=== PATIENT | female | born 1940 | race Caucasian/White ===

== ENCOUNTER 2016-12-03 11:52 | Inpatient (IN) ==
[2016-12-03] MEDS ORDERED: ALBUTEROL/IPRATROPIUM 3 ML NEB RESP TX PRN (12:08)
--- NOTE | 2016-12-03 12:45 | Pulmonology History & Physical ---
History of Present Illness Chief complaint: acute exacerbation of COPD, outpatient treatment failure. History of present illness: MARLA Neil acting as scribe for Dr. Rigoberto Conrad. Ms. Hedrick is a 75 year old white female who is admitted today 12/03/16 as a direct admit for exacerbation of COPD and outpatient treatment failure. She has been seen multiple times in the clinic over the past month and has been treated with abx and steroids most recently Cipro and PenVK for exacerbation of COPD. These additions along with her home medications improve symptoms briefly but continue to come back and when they come back it is significantly worse each episode. Today she admits shortness of breath wheezing and fatigue to the point that she cannot catch her breath and having severe wheezing and coughing spells. She has taken breathing treatments PRN and are not helping. Due to the severity of her symptoms and her past medical history decision was made to admit for further evaluation and treatment. ALLERGIES: DOXYCYCLINE, ATORVASTATIN, CARISOPRODOL, CODEINE, ROSUVASTATIN, AUGMENTIN (GI UPSET) ROS: Admits cough productive of green/white thick sputum, SOB, wheezing, fatigue , coughing, and weakness. Denies fever, nausea, vomiting, diarrhea, cardiac chest pain sx, headache, syncope, symptoms of TIA, dizziness, vertigo, and abdominal pain. All other ROS noncontributory. Home Medications: See list. Past Medical History: [facility]ization 06/10/17-06/19/16 under the care of Dr. Conrad also seen by cardiology for acute exacerbation of COPD. Repeat Bronchoscopy on 09/15/16 after Class III cytology reported from bronchscopy in June 2016. CAD, Hypertension, Hyperlipidemia with Statin Intolerance, Depression, Parkinson's Disease followed by Dr. Diaz, Hypothyroidism, Asthma, COPD with severe exacerbations, Obstructive Sleep Apnea, Pneumonia requiring hospitalizations, Recurring UTIs, Gastroesphageal reflux disease, Gastroparesis , Hepatitis, and Dejenerative Disc Disease. Past Surgical History: Left heart cath, Tonsillectomy & Adenoidectomy, Appendectomy, Cholecystectomy, Colonoscopy, & EGD. Family History: Diabetes, Heart Disease, Hypertension, Social History: Former smoker, former alcohol, drinks caffeine, . Chest xray, labs, and EKG are pending at this time. Home Medications Medication Instructions Recorded Confirmed Type Albuterol Tab [Proventil Tab] 1 mg PO 2100 12/03/16 12/03/16 History Albuterol Tab [Proventil Tab] 2 mg PO 0600 12/03/16 12/03/16 History Aspirin Tab 325 mg PO DAILY 12/03/16 12/03/16 History Benzonatate 100 mg PO TID 12/03/16 12/03/16 History Ciprofloxacin Tab [Cipro Tab] 250 mg PO BID 12/03/16 12/03/16 History Clopidogrel [Plavix] 75 mg PO DAILY 12/03/16 12/03/16 History Cyclobenzaprine [Flexeril] 10 mg PO BID 12/03/16 12/03/16 History Diclofenac 1% Gel [Voltaren 1% Gel] 1 applic TOP QID PRN 12/03/16 12/03/16 History Fexofenadine [Yari] 180 mg PO DAILY 12/03/16 12/03/16 History Fluticasone Furoate [Flonase 9.9 ml NS BID 12/03/16 12/03/16 History Sensimist] Isosorbide Mononitrate [Imdur] 30 mg PO DAILY 12/03/16 12/03/16 History Levothyroxine Tab [Synthroid Tab] 112 mcg PO DAILY@0700 12/03/16 12/03/16 History Methocarbamol 500 mg PO Q8HR PRN 12/03/16 12/03/16 History Montelukast Tab [Singulair Tab] 10 mg PO DAILY 12/03/16 12/03/16 History Nebivolol [Bystolic] 5 mg PO DAILY 12/03/16 12/03/16 History Ondansetron HCl 4 mg PO Q8HR PRN 12/03/16 12/03/16 History Pantoprazole Tab [Protonix Tab] 40 mg PO BID 12/03/16 12/03/16 History Penicillin Vk Tab 250 mg PO Q6HR 12/03/16 12/03/16 History Sertraline [Zoloft] 50 mg PO BEDTIME 12/03/16 12/03/16 History Theophylline ER Tab 300 mg PO Q12HR 12/03/16 12/03/16 History Tramadol HCl [Tramadol Tab] 50 mg PO QID PRN 12/03/16 12/03/16 History clonazePAM [Clonazepam] 0.5 mg PO TID PRN 12/03/16 12/03/16 History Allergies Allergy/AdvReac Type Severity Reaction Status Date / Time doxycycline Allergy Intermediate RASH Verified 06/10/16 18:20 atorvastatin [From Lipitor] AdvReac Intermediate Muscle Pain Verified 06/10/16 18:20 carisoprodol [From Soma] AdvReac Intermediate Drowsy Verified 06/10/16 18:20 codeine AdvReac Intermediate Nausea Verified 06/10/16 18:20 rosuvastatin [From Crestor] AdvReac Intermediate Muscle Pain Verified 06/10/16 18:20 Medical,Surgical,& Family Hx - Medical History Cardio: History of: CAD (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) , Hypertension, Cardiovascular Problems No history of: Aneurysm, Cardiac Dysrhythmia, Cerebrovascular Disease, Congenital Heart Disease, CHF, SD, Pacemaker, PVD, Valvular Heart Disease Psychological: History of: Depression Neurology: History of: Parkinson's Disease No history of: Brain Aneurysm, Cerebral Hemorrhage, Cerebrovascular Accident , Cerebral Palsy, Dementia, Migraine, Multiple Sclerosis, Peripheral Neuropathy , Seizures, TIA, Vertigo, Neurologocal Cancer HEENT: History of: Eye Problem (GLASSES) Endocrine: History of: Thyroid Disorder No history of: Adrenal Disease, Diabetes Mellitus (IDDM), Diabetes Mellitus ( NIDDM), Dyslipidemia, Endocrine Cancer, Endocrine Problems Rheumatology: No history of;: Fibromyalgia, Gout, Myasthenia Gravis, Rheumatoid Arthritis, Rheumatological Problems Respiratory: History of: Asthma, Bronchitis, Obstructive Sleep Apnea, Pneumonia , Respiratory Problems No history of: COPD, Intubation, Pulmonary Embolism, Pulmonary Hypertension, Lung Cancer Renal: No history of: Renal (Kidney) Cancer, Dialysis, Renal Failure, Renal Problems Genitourinary: History of: Bladder Problem, Recurring Urinary Tract Infections No history of: Kidney Stones, Genitourinary Cancer, Problems Gastrointestinal: History of: GERD, Hepatitis, GI Problems No history of: Bowel Obstruction, Clostridium Difficile, Crohn's Disease, Diverticulitis/ Diverticulosis, Esophageal Varices, Gastrointestinal Bleed, Hemorrhoids, Hematochezia, Liver Problems, Pancreatitis, Polyps, Ulcerative Colitis, Gastrointestinal Cancer Musculoskeletal: History of: Back/Neck Problems, Degenerative Disk Disease, Musculoskeletal Problems No history of: Amputation, Herniated Disk, Osteoporosis, Musculoskeletal Cancer Other: No history of: Cancer - Surgical History Cardiac Surgeries: Sugical HX of: Cardiac Catheterization Patient Denies: Femoral-Popliteal Bypass Graft, Cardiac Surgery, Carotid Endarterectomy, Internal Defibrillator, Vascular Access Devices Thoracic Surgeries: Patient denies;: Kidney (Renal Surgery), Lithotripsy, Nephrectomy, Lobectomy Neurologic Surgeries: Patient denies: Brain Aneurysm, Cerebral Hemorrhage, Neurologic Surgery HEENT Surgeries: Surgical HX of: Tonsilectomy & Adenoidectomy Patient denies: Carotid Endarterectomy, Thyroid Surgery Abdominal Surgeries: Surgical HX of: Appendectomy, Cholecystectomy, Colonoscopy , EGD Patient denies: Abdominal Surgery, Gastric Bypass Surgery, Hernia Repair, Splenectomy Reproductive Surgeries: Surgical HX of;: Hysterectomy, Tubal Ligation Patient denies;: Cystoscopy, Genitourinary Surgery Orthopedic Surgeries: Patient denies;: Implanted Devices, Orthopedic Surgery, Spinal Surgery, Total Hip Replacement, Total Knee Replacement - Family History Family History: Reports;: Family Diabetes, Family Heart Disease, Family Hypertension Denies;: Family Anesthesia Reaction - Social History Smoking Status: Never smoker Results - Labs CBC & BMP: 12/03/16 14:15 12/03/16 14:15 Exam (Pulmonay) H&P - Constitutional Exam: Vital signs see above Psych: Awake alert oriented to person place time situation. Anxious. acute and chronically ill appearing. HEENT: Pupils, irises, sclera, conjuctiva, and eyelids are normal. The face is symmetrical no rash no masses. Nares are normal. Nasal turbinates are inflamed and edematous. Lips tongue buccal mucosa soft and hard palate pharynx were essentially normal. NECK: Symmetrical with no masses. Lymphatics: There is no submandibular cervical supraclavicular adenopathy. Chest: Symmetrical. Moderate LAW congestion and wheeze along restricted air movement so minimal wheezes in the periphery can be heard due to severely restricted air movement throughout. Prolonged expiration. Heart: Regular rate and rhythm without murmurs or gallops. Abdomen: No tenderness to palpation. No appreciable organomegaly. Bowel sounds present and active x 4 quadrants. M/S: Age appropriate loss of curvature of cervical, thoracic, lumbosacral spine. Ambulatory with rolling walker. Generalized weakness with ambulation. Extremities: No clubbing. No evidence of deep venous thrombophlebitis. No edema. No rash or lesions to exposed examined skin. Arterial: Carotid upstrokes normal no bruits. Upper and lower extremity pulses palpable. Arterial exam normal. Venous: No evidence of JVD. No evidence of DVT. Upper and lower extremity venous exam normal. Skin: Flushed look to the chest and upper arms r/t coughing and SOB. No rash or infectious lesions noted to exposed, examined skin. All other areas of exam are noncontributory. Impression #1 Acute exacerbation of COPD, refractory to outpatient treatment #2 Acute bronchitis with bronchospasm #3 Productive cough, green sputum, r/o bacterial pneumonia #4 Gastroesophageal reflux disease with history of reflux aspiration #5 Gastroparesis #6 History of CAD, HTN, HLD, Parkinson's Disease, and Hypothyroidism. See past history Plan #1 Admit to acute inpatient #2 Merrem 1GM every 8 hours SoluMedrol 40mg IVP q9fzyft inhalation therapy with Duonebs q6h schedule and q4h PRN #3 Sputum for gram stain culture & sensitivity, CBC, CMP, TSH/Free T4, CXR, EKG , Daily theophylline level. #4 Continue home meds as ordered. #5 See orders.
[2016-12-03 14:30] LABS: Basophils # 0.1 10*3/uL (0.0-0.2); Basophils % 0.4 % (0.0-0.8); Eosinophils # 0.1 10*3/uL (0.0-0.87); Eosinophils % 0.4 % (0.00-10.9); Hemoglobin 10.9 GM/DL (12.0-16.0); Immature Granulocytes % 1.2 %; Immature Granulocytes Absolute 0.17 #; Lymphocytes # 1.8 10*3/uL (1.4-4.0); Lymphocytes % 13.2 % (21.3-54.2); Mean Corpuscular HGB Conc 29.5 GM/DL (32-36); Mean Corpuscular Hemoglobin 26 PG (27-34); Mean Corpuscular Volume 89.6 FL (87-102); Mean Platelet Volume 11.3 FL (9.6-12.0); Monocytes # 0.8 10*3/uL (0.11-0.8); Neutrophils % 78.8 % (38.7-73.9); Platelet Count 270 T/CUMM (130-400); Red Blood Count 4.13 MC/CUMM (3.8-5.5); Red Cell Distribution Width 16.4 % (9.3-17.3); White Blood Count 13.9 T/CUMM (4-12)
--- NOTE | 2016-12-03 14:35 | XRay Report ---
XR chest 2V Date: 12/03/2016 12:11 PM History: Shortness of breath Comparison: 06/17/2016 Technique: PA and lateral chest Findings: The heart is normal in size. Chronic scarring in the lungs with residual atelectasis at the lung bases. Stable mediastinum with degenerative changes. Prior anterior cervical fusion and cholecystectomy. Impression: No acute cardiopulmonary pathology identified. PROCEDURE INTERPRETED AT [facility] DEPARTMENT OF RADIOLOGY Final Report Signed by: Dr. Debra Latif
[2016-12-03 14:55] LABS: Alanine Aminotransferase 16 U/L (13-56); Albumin 3.6 G/DL (3.4-5.0); Alkaline Phosphatase 71 U/L (45-117); Aspartate Amino Transferase 10 U/L (0-37); Bilirubin,Total < 0.39 MG/DL (0.2-1.0); Blood Urea Nitrogen 10 MG/DL (7-18); Calcium 9.1 MG/DL (8.5-10.1); Glucose 99 MG/DL (74-106); Magnesium 2.5 MG/DL (1.8-2.4); Osmolality,Calculated 286.7 MOS/KG (273-304); Potassium 4.1 MMOL/L (3.5-5.1); Sodium 145 MMOL/L (136-145); Total Protein 6.4 G/DL (6.4-8.3)
--- NOTE | 2016-12-03 15:02 | EKG Report ---
Stationary ECG Study [facility] Test Date: 12/03/2016 3:02:09 PM Pat Name: OSKAR RAMIREZ Department: Room: 521 Gender: F [employer] Supervisor: LAITH TO READ : 1940 Requested by: Baljit Mcgrath Order Number: [id number] Reading MD: STEVE OZUNA Intervals [place] Rate: 66 P: 78 VT: 124 QRS: 11 QRSD: 82 T: 49 QT: 396 QTc: 409 Interpretive Statements Normal ECG (DR OZUNA TO INTERP) SINUS RHYTHM LOW QRS VOLTAGE IN PRECORDIAL LEADS Electronically Signed On 12-07-16 08:41:20 CDT by STEVE OZUNA [email or web address]
[2016-12-03] MEDS: ALBUTEROL/IPRATROPIUM 3 ML NEB RESP TX SCH ×2 (15:14→19:34)
[2016-12-03] MEDS ORDERED: DICLOFENAC 1% GEL 100 GM TUBE TOP PRN (15:32)
[2016-12-03 16:17] LABS: ABG Base Excess 3.9 MMOL/L (-2.5-2.5); ABG HCO3 28.3 MMOL/L (20-26); ABG Oxygen Saturation 94.8 % (95-100); ABG PCO2 42.1 MM HG (35-48); ABG PH 7.446 (7.35-7.45); ABG PO2 76.2 MM HG (80-95); ABG TCO2 29.6 MMOL/L (23-27)
[2016-12-03] MEDS: methylPREDNISolone SOD SUC 40 MG/1 ML VIAL IV SCH ×2 (16:43→21:25)
[2016-12-03] MEDS: MEROPENEM 1,000 MG in SODIUM CHLORIDE 0.9% 100 ML IV SCH ×2 (16:43→21:26)
[2016-12-03] MEDS: ONDANSETRON 4 MG TABLET PO PRN (20:15)
[2016-12-03] MEDS: SERTRALINE 50 MG TABLET PO SCH (20:15)
[2016-12-03] MEDS: CYCLOBENZAPRINE 10 MG TABLET PO SCH (20:15)
[2016-12-03] MEDS: THEOPHYLLINE ER 300 MG TABLET PO SCH (20:15)
[2016-12-03] MEDS: ALBUTEROL 2 MG TABLET PO SCH (20:15)
[2016-12-04 03:19] LABS: Apearance,Urine CLEAR (Clear); Bilirubin,Urine Negative (Negative); Blood, Urine Negative (Negative); Calcium Oxalate Crystals,Urine Few /HPF (Few); Glucose,Urine (UA) Negative (Negative); Hyaline Casts,Urine 1 /LPF (0-3); Ketones,Urine Negative (Negative); Mucus,Urine Occasional /LPF (Occasional); Nitrite,Urine Negative (Negative); Protein,Urine Negative; RBC,Urine 2 /HPF (0-4); Urine Color Yellow (Yellow); Urine Specific Gravity 1.012 (1.001-1.035); Urine Urobilinogen < 2.0 EU/DL (0.2-1.0); WBC,Urine 1 /HPF (0-6)
[2016-12-04] MEDS: ALBUTEROL 2 MG TABLET PO SCH ×2 (06:33→20:43)
[2016-12-04] MEDS: LEVOTHYROXINE 112 MCG TABLET PO SCH (06:33)
[2016-12-04] MEDS: MEROPENEM 1,000 MG in SODIUM CHLORIDE 0.9% 100 ML IV SCH ×3 (06:34→21:17)
[2016-12-04] MEDS: methylPREDNISolone SOD SUC 40 MG/1 ML VIAL IV SCH ×3 (06:34→21:17)
[2016-12-04] MEDS: ALBUTEROL/IPRATROPIUM 3 ML NEB RESP TX SCH ×4 (07:10→20:31)
[2016-12-04 07:18] LABS: Basophils % 0.2 % (0.0-0.8); Hematocrit 35.6 VOL% (35.7-47.0); Hemoglobin 10.5 GM/DL (12.0-16.0); Immature Granulocytes % 1.3 %; Immature Granulocytes Absolute 0.18 #; Lymphocytes # 0.6 10*3/uL (1.4-4.0); Lymphocytes % 4.2 % (21.3-54.2); Mean Corpuscular HGB Conc 29.5 GM/DL (32-36); Mean Corpuscular Hemoglobin 26 PG (27-34); Mean Corpuscular Volume 88.3 FL (87-102); Mean Platelet Volume 12.7 FL (9.6-12.0); Monocytes # 0.2 10*3/uL (0.11-0.8); Monocytes % 1.1 % (1.7-12.7); Neutrophils # 13.3 10*3/uL (1.4-7.4); Neutrophils % 93.2 % (38.7-73.9); Platelet Count 268 T/CUMM (130-400); Red Blood Count 4.03 MC/CUMM (3.8-5.5); Red Cell Distribution Width 16.5 % (9.3-17.3); White Blood Count 14.2 T/CUMM (4-12)
[2016-12-04 07:33] LABS: Calcium 8.9 MG/DL (8.5-10.1); Osmolality,Calculated 289.8 MOS/KG (273-304); Potassium 5.4 MMOL/L (3.5-5.1)
[2016-12-04 07:43] LABS: Hypochromasia 1+; Lymphocytes 9 % (20-55); Platelet Estimate Adequate; Segmented Neutrophils 91 % (50-85); Total Cells Counted 100
[2016-12-04] MEDS: THEOPHYLLINE ER 300 MG TABLET PO SCH ×2 (08:39→20:37)
[2016-12-04] MEDS: FEXOFENADINE 180 MG TABLET PO SCH (08:39)
[2016-12-04] MEDS: ASPIRIN 325 MG TABLET PO SCH (08:39)
[2016-12-04] MEDS: CLOPIDOGREL 75 MG TABLET PO SCH (08:40)
[2016-12-04] MEDS: CYCLOBENZAPRINE 10 MG TABLET PO SCH ×2 (08:40→20:37)
[2016-12-04] MEDS: ISOSORBIDE MONONITRATE 30 MG TABLET PO SCH (08:40)
[2016-12-04] MEDS: NEBIVOLOL 5 MG TABLET PO SCH (08:40)
[2016-12-04] MEDS ORDERED: PANTOPRAZOLE 40 MG TABLET PO SCH (09:00)
[2016-12-04] MEDS ORDERED: ALUMINUM/MAGNES/SIMETH MAX STR 30 ML UDCUP PO PRN (10:06)
--- NOTE | 2016-12-04 11:50 | Pulmonology Progress Note ---
Pulmonary - PN: Subj Interval history: Zeus Mcgrath, ANP-BC, GNP-BC, acting as scribe for Dr. Rigoberto Conrad Mrs. Hedrick is a 76 year old white female who was directly admitted 12/03/16 for an acute exacerbation of COPD and acute bronchitis with bronchospasm. She is an outpatient treatment failure. Other past history includes: gastroesophageal reflux disease with history of reflux aspiration, gastroparesis, history of CAD , HTN, HLD, Parkinson's Disease, and Hypothyroidism. 12/04/16. The patient was seen today along with her and Camille Lilly RN. She states that her breathing is much improved from admission. Upon questioning , she is having a terrific amount of reflux up into her throat and this is almost certainly hindering her pulmonary improvement. She states it is time for her to see Dr. Light again regarding her colonscopy and repeat EGD. We have her on Protonix, but will add Carafate. She can continue to have Mylanta PRN. We will consult Dr. Light for evaluation and treatment. Medications have been reviewed. Labs have been reviewed. Exam (Progress Note) - Constitutional Vitals: Period Temp Pulse Resp BP Sys/Hemphill Pulse Ox Last 24 Hr 97.3 F-98.0 F 65-93 18-22 113-145/66-80 90-99 Exam: Chest with much better air movement and less wheeze Heart no gallop Abd is nontender and nondistended; BS positive x 4 Ext with nothing to suggest acute DVT Psych oriented x 3 Neuro long tract motor function is intact Plan: Consult Dr. Light. Carafate 1gram ACHS. Continue Mylanta PRN. Continue other present treatment. See orders. Results - Labs CBC & BMP: 12/04/16 04:44 12/04/16 11:44
[2016-12-04 12:17] LABS: Magnesium 2.6 MG/DL (1.8-2.4); Potassium 4.4 MMOL/L (3.5-5.1)
--- NOTE | 2016-12-04 12:27 | Gastrointestinal Consult Note ---
Assessment and Plan (1) Gastroparesis Status: Acute Assessment and plan: Patient states that she did fairly well with Reglan before this was discontinued. She did get some worsening shaking in her hands due to this. She does have a history of parkinsonism which can be worsened by Reglan but if we use a low dose she may get some relief without having excessive side effects. We will observe her as this is restarted. She did not brain picker any domperidone from [facility] and she was originally instructed. This may be difficult for her to a hold of. Current Visit: Yes (2) History of dysphagia Status: Acute Assessment and plan: The patient has a history of dysphagia and was not able to afford the Dexilant after being taken off of Protonix. She states that she has been using Zantac as an outpatient instead although numerous times per day. This is not going to be as effective for his take the Protonix twice daily. This is been restarted here in the hospital by Dr. Conrad. She is not really having true dysphagia at this time. We might consider doing a dilation though if we see a stricture in the distal esophagus and upper endoscopy which is due to occur on 12/07/16. Current Visit: Yes (3) Chronic constipation Status: Acute Assessment and plan: The patient is to be getting a bowel prep on Wednesday afternoon in order to undergo colonoscopy on Wednesday. She has not had this done in the recent past. This needs to be done before being considered for rectal prolapse repair which she would like to explore in the future, provided this is severe enough to warrant surgery. Dr. Garcia does this repair locally here in [place] or she could like to go to [facility] to have it done at another institution. Will rule out polyps and cancer before she considers this. Current Visit: Yes (4) Rectal prolapse Status: Acute Assessment and plan: As noted above. This might be able to be repaired locally by Dr. Garcia. He is the only physician here who does rectal prolapse repairs. Current Visit: Yes History of Present Illness Chief complaint: Dysphagia and feelings of gastroparesis, constipation, CRC screen History of present illness: Ms. Hedrick is a 76 year old female who according to our records this patient did undergo EGD with Savary dilation to 57 Lithuanian on 05/16/14 due to, abdominal pain in the epigastric region dysphagia GERD and gastroparesis on domperidone at that time. 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 I had last seen this patient in the office on 03/25/16 at which point it was noted the patient had a gastric emptying study which did show delay on 05/14/14 with a T1 half emptying time of 141 minutes. She was noted to have some noncardiac chest pain when admitted by the cardiology service and have been sent back at that time for acid reflux. At that point we switched her over from Protonix to Dexilant to see if that was going to be more effective for her. The patient could not afford the Dexilant and so did not take any more of this and did not go back on the Protonix either instead substituting Zantac which was entirely ineffective for her. Unfortunately she has also had some constipation recently and this is worsened her rectal prolapse. She has never had a colonoscopy and we were due to do this in November of this year (now) and we will go ahead and get this done on Wednesday along with upper endoscopy and potential dilation. She feels like she is having gurgling from poor emptying of her stomach. She is wanting to try the Reglan again even though this did produce some "jitters" last time. She is having such severe reflux that likely she will need to be on Protonix twice daily at least in the short-term. Home Medications Medication Instructions Recorded Confirmed Type Albuterol Tab [Proventil Tab] 1 mg PO 2100 12/03/16 12/03/16 History Albuterol Tab [Proventil Tab] 2 mg PO 0600 12/03/16 12/03/16 History Aspirin Tab 325 mg PO DAILY 12/03/16 12/03/16 History Benzonatate 100 mg PO TID 12/03/16 12/03/16 History Ciprofloxacin Tab [Cipro Tab] 250 mg PO BID 12/03/16 12/03/16 History Clopidogrel [Plavix] 75 mg PO DAILY 12/03/16 12/03/16 History Cyclobenzaprine [Flexeril] 10 mg PO BID 12/03/16 12/03/16 History Diclofenac 1% Gel [Voltaren 1% Gel] 1 applic TOP QID PRN 12/03/16 12/03/16 History Fexofenadine [Yari] 180 mg PO DAILY 12/03/16 12/03/16 History Fluticasone Furoate [Flonase 9.9 ml NS BID 12/03/16 12/03/16 History Sensimist] Isosorbide Mononitrate [Imdur] 30 mg PO DAILY 12/03/16 12/03/16 History Levothyroxine Tab [Synthroid Tab] 112 mcg PO DAILY@0700 12/03/16 12/03/16 History Methocarbamol 500 mg PO Q8HR PRN 12/03/16 12/03/16 History Montelukast Tab [Singulair Tab] 10 mg PO DAILY 12/03/16 12/03/16 History Nebivolol [Bystolic] 5 mg PO DAILY 12/03/16 12/03/16 History Ondansetron HCl 4 mg PO Q8HR PRN 12/03/16 12/03/16 History Pantoprazole Tab [Protonix Tab] 40 mg PO BID 12/03/16 12/03/16 History Penicillin Vk Tab 250 mg PO Q6HR 12/03/16 12/03/16 History Sertraline [Zoloft] 50 mg PO BEDTIME 12/03/16 12/03/16 History Theophylline ER Tab 300 mg PO Q12HR 12/03/16 12/03/16 History Tramadol HCl [Tramadol Tab] 50 mg PO QID PRN 12/03/16 12/03/16 History clonazePAM [Clonazepam] 0.5 mg PO TID PRN 12/03/16 12/03/16 History Allergies Allergy/AdvReac Type Severity Reaction Status Date / Time doxycycline Allergy Intermediate RASH Verified 06/10/16 18:20 atorvastatin [From Lipitor] AdvReac Intermediate Muscle Pain Verified 06/10/16 18:20 carisoprodol [From Soma] AdvReac Intermediate Drowsy Verified 06/10/16 18:20 codeine AdvReac Intermediate Nausea Verified 06/10/16 18:20 rosuvastatin [From Crestor] AdvReac Intermediate Muscle Pain Verified 06/10/16 18:20 Medical,Surgical,& Family Hx - Medical History Cardio: History of: CAD (PCI of the LAD 01/2015 effective BRAILLE CODER of the dRCA 2015) , Hypertension, Cardiovascular Problems No history of: Aneurysm, Cardiac Dysrhythmia, Cerebrovascular Disease, Congenital Heart Disease, CHF, NE, Pacemaker, PVD, Valvular Heart Disease Psychological: History of: Depression No history of: Anxiety Disorders, ADHD, Behavior Problems, Bipolar Disorder, Previous Suicide Attempt, Psychiatric/Substance Abuse Tx, Schizophrenia, Violent Behavior, Psychiatric Problems Neurology: History of: Parkinson's Disease No history of: Brain Aneurysm, Cerebral Hemorrhage, Cerebrovascular Accident , Cerebral Palsy, Dementia, Migraine, Multiple Sclerosis, Peripheral Neuropathy , Seizures, TIA, Vertigo, Neurologocal Cancer HEENT: History of: Eye Problem (GLASSES) Endocrine: History of: Thyroid Disorder No history of: Adrenal Disease, Diabetes Mellitus (IDDM), Diabetes Mellitus ( NIDDM), Dyslipidemia, Endocrine Cancer, Endocrine Problems Rheumatology: No history of;: Fibromyalgia, Gout, Myasthenia Gravis, Rheumatoid Arthritis, Rheumatological Problems Respiratory: History of: Asthma, Bronchitis, Obstructive Sleep Apnea, Pneumonia , Respiratory Problems No history of: COPD, Intubation, Pulmonary Embolism, Pulmonary Hypertension, Lung Cancer Renal: No history of: Renal (Kidney) Cancer, Dialysis, Renal Failure, Renal Problems Genitourinary: History of: Bladder Problem, Recurring Urinary Tract Infections No history of: Kidney Stones, Genitourinary Cancer, Problems Gastrointestinal: History of: GERD, Hepatitis, GI Problems No history of: Bowel Obstruction, Clostridium Difficile, Crohn's Disease, Diverticulitis/ Diverticulosis, Esophageal Varices, Gastrointestinal Bleed, Hemorrhoids, Hematochezia, Liver Problems, Pancreatitis, Polyps, Ulcerative Colitis, Gastrointestinal Cancer Musculoskeletal: History of: Back/Neck Problems, Degenerative Disk Disease, Musculoskeletal Problems No history of: Amputation, Herniated Disk, Osteoporosis, Musculoskeletal Cancer Other: No history of: Cancer - Surgical History Cardiac Surgeries: Sugical HX of: Cardiac Catheterization Patient Denies: Femoral-Popliteal Bypass Graft, Cardiac Surgery, Carotid Endarterectomy, Internal Defibrillator, Vascular Access Devices Thoracic Surgeries: Patient denies;: Kidney (Renal Surgery), Lithotripsy, Nephrectomy, Organ Transplant, Lobectomy Neurologic Surgeries: Patient denies: Brain Aneurysm, Cerebral Hemorrhage, Neurologic Surgery HEENT Surgeries: Surgical HX of: Tonsilectomy & Adenoidectomy Patient denies: Carotid Endarterectomy, Thyroid Surgery Abdominal Surgeries: Surgical HX of: Appendectomy, Cholecystectomy, Colonoscopy , EGD Patient denies: Abdominal Surgery, Gastric Bypass Surgery, Hernia Repair, Splenectomy Reproductive Surgeries: Surgical HX of;: Hysterectomy, Tubal Ligation Patient denies;: Cystoscopy, Genitourinary Surgery Orthopedic Surgeries: Patient denies;: Implanted Devices, Orthopedic Surgery, Spinal Surgery, Total Hip Replacement, Total Knee Replacement - Family History Family History: Reports;: Family Diabetes, Family Heart Disease, Family Hypertension Denies;: Family Anesthesia Reaction - Social History Smoking Status: Never smoker Frequency of Alcohol Use: None Type of Drug Use: None Review of systems: Constitutional: Denies fever, chills, but positive for recent nausea, and vomiting Eyes: Denies dry eyes, and scleral icterus HENT: Occasional headaches Cardiovascular: Mild acute chest pain but no claudication Respiratory: Occasional shortness of breath, wheezing, and difficulty breathing, denies cough Gastrointestinal: As noted in the HPI Genitourinary: Denies dysuria and hematuria Neurologic: Denies vision loss, and loss of sensation Musculoskeletal: Admits to some joint swelling, joint stiffness, and muscular weakness Psychiatric: Denies depression and shelli symptoms Heme-Lymph: Denies easy bruising, lymph node enlargement or tenderness, night sweats, excessive bleeding Allergies-immunologic: Denies pruritus and rhinorrhea Exam - Constitutional Vitals: Period Temp Pulse Resp BP Sys/Hemphill Pulse Ox Last 24 Hr 97.3 F-98.0 F 65-93 18-22 113-145/66-80 90-99 General appearance: mild distress Exam: Constitutional: Well-developed, well-nourished, alert, and in no acute distress Head and face: Head: Normocephalic atraumatic Eyes: Conjunctiva without injection, no gross scleral icterus, pupils equal and round bilaterally Ears: Intact to conversation in both ears Nose: External appearance is normal, nares patent Mouth: Oral mucous membranes moist without erythema dentition noted to be without erosion Neck: Normal appearance, no masses or tenderness, trachea midline Thyroid: Gland midline and appropriate size for age Respiratory: Normal respiratory effort, decreased breath sounds in the bases bilaterally but no rhonchi or rales Cardiovascular: Regular rate and rhythm, normal S1, S2, the exam is without rubs, murmurs or gallops. Gastrointestinal: Mild tenderness to deep palpation in the epigastric region, normal active bowel sounds, tone normal without rigidity or guarding, no masses present, no hepatomegaly, no spleen tip felt. Fairly obese no rectal exam obtained--this patient is known to have rectal prolapse. Lymphatic: Neck without adenopathy, axilla without lymphadenopathy present Musculoskeletal: Right and left lower extremities without evidence of edema Skin and subcutaneous tissue: No rashes or ulcerations noted, normal skin turgor, digits and nails without clubbing/cyanosis/deformities. Neurologic: The patient is grossly oriented to person place and time, cranial nerves show tongue movements are normal with normal tongue extrusion midline, light touch sensation is intact. Psychiatric: No hallucinations or delusions are present, does not appear depressed Results - Labs CBC & BMP: 12/04/16 04:44 12/04/16 11:44 Quality Measures - Stroke Symptom Onset Unknown: No
[2016-12-04] MEDS: SUCRALFATE 1 GM TABLET PO SCH ×3 (12:44→20:37)
[2016-12-04] MEDS: METOCLOPRAMIDE 10 MG/10 ML UDCUP PO SCH ×2 (16:06→20:37)
[2016-12-04] MEDS: PANTOPRAZOLE 40 MG TABLET PO SCH (20:37)
[2016-12-04] MEDS: SERTRALINE 50 MG TABLET PO SCH (20:37)
[2016-12-05 05:10] LABS: Basophils % 0.1 % (0.0-0.8); Hematocrit 33.3 VOL% (35.7-47.0); Hemoglobin 10.1 GM/DL (12.0-16.0); Immature Granulocytes % 1.4 %; Immature Granulocytes Absolute 0.22 #; Lymphocytes # 0.7 10*3/uL (1.4-4.0); Lymphocytes % 4.4 % (21.3-54.2); Mean Corpuscular HGB Conc 30.3 GM/DL (32-36); Mean Corpuscular Hemoglobin 26 PG (27-34); Mean Corpuscular Volume 86.9 FL (87-102); Monocytes # 0.5 10*3/uL (0.11-0.8); Monocytes % 2.9 % (1.7-12.7); Neutrophils # 14.6 10*3/uL (1.4-7.4); Neutrophils % 91.2 % (38.7-73.9); Platelet Count 246 T/CUMM (130-400); Red Blood Count 3.83 MC/CUMM (3.8-5.5); Red Cell Distribution Width 16.6 % (9.3-17.3)
[2016-12-05 05:50] LABS: Calcium 9.1 MG/DL (8.5-10.1); Osmolality,Calculated 289.8 MOS/KG (273-304); Potassium 5.7 MMOL/L (3.5-5.1)
[2016-12-05 05:54] LABS: Hypochromasia 1+; Lymphocytes 4 % (20-55); Microcytosis 1+; Segmented Neutrophils 94 % (50-85); Total Cells Counted 100
[2016-12-05 05:55] LABS: Platelet Estimate Normal
[2016-12-05] MEDS: METOCLOPRAMIDE 10 MG/10 ML UDCUP PO SCH ×4 (06:46→21:52)
[2016-12-05] MEDS: LEVOTHYROXINE 112 MCG TABLET PO SCH (06:47)
[2016-12-05] MEDS: SUCRALFATE 1 GM TABLET PO SCH ×4 (06:47→21:51)
[2016-12-05] MEDS: ALBUTEROL 2 MG TABLET PO SCH ×2 (06:47→21:52)
[2016-12-05] MEDS: methylPREDNISolone SOD SUC 40 MG/1 ML VIAL IV SCH ×3 (06:48→21:51)
[2016-12-05] MEDS: MEROPENEM 1,000 MG in SODIUM CHLORIDE 0.9% 100 ML IV SCH ×3 (06:48→21:52)
[2016-12-05] MEDS: ALBUTEROL/IPRATROPIUM 3 ML NEB RESP TX SCH ×4 (07:00→20:15)
[2016-12-05] MEDS: ISOSORBIDE MONONITRATE 30 MG TABLET PO SCH (08:34)
[2016-12-05] MEDS: THEOPHYLLINE ER 300 MG TABLET PO SCH ×2 (08:34→21:52)
[2016-12-05] MEDS: PANTOPRAZOLE 40 MG TABLET PO SCH ×2 (08:34→21:52)
[2016-12-05] MEDS: CYCLOBENZAPRINE 10 MG TABLET PO SCH ×2 (08:34→21:52)
[2016-12-05] MEDS: NEBIVOLOL 5 MG TABLET PO SCH (08:34)
[2016-12-05] MEDS: FEXOFENADINE 180 MG TABLET PO SCH (08:34)
[2016-12-05] MEDS: traMADol 50 MG TABLET PO PRN ×2 (08:37→17:46)
--- NOTE | 2016-12-05 14:26 | Gastrointestinal Progress Note ---
Assessment and Plan - Time spent with patient Time spent with patient: Greater than 30 minutes (1) Dysphagia Status: Acute Current Visit: Yes (2) GERD (gastroesophageal reflux disease) Status: Acute Current Visit: Yes (3) Gastroparesis Status: Acute Current Visit: Yes (4) Chronic constipation Status: Acute Current Visit: Yes (5) Other specified counseling Status: Acute Current Visit: Yes Exam (Progress Note) - Constitutional Vitals: Period Temp Pulse Resp BP Sys/Hemphill Pulse Ox Last 24 Hr 97 F-98.8 F 67-88 16-203 110-133/59-75 92-99 Results - Labs CBC & BMP: 12/05/16 04:32 12/05/16 04:32 Note Addendum: PLEASE NOTE -- automatic citation of patient information is unavoidable in this electronic note. I have made a reasonable effort to review the information cited , but it is not a part of my evaluation, impression, or recommendation unless specifically discussed in the dictated text that follows. As well, voice recognition software was used in the creation of this clinical note. Reasonable effort was made to identify and correct gross errors. Despite proofreading, errors in institutional research coordinator may be present, including nonsense verbiage at times. If you encounter such an error, please contact me at [phone] for discussion and correction. -- Luther Chief complaint: gastroparesis, esophageal reflux Subjective: the patient is a 76-year-old female seen for follow-up of multiple G.I. related issues. She was admitted yesterday with complaints ranging from gastroesophageal reflux to gastroparesis to constipation. She was started on twice daily Protonix, Reglan, and a bowel regimen. Since admission, the patient seems to be tolerating oral intake and has had at least two bowel movements recorded. She now reports some improvement with respect to nausea, vomiting, reflux, and constipation. Medications: albuterol, Duoneb, aspirin, Dulcolax, Klonopin, Plavix, Flexeril, Yari, isosorbide mononitrate, Synthroid, magnesium citrate, Meropenem, Solu- Medrol, Reglan, Bystolic, Zofran, Protonix, MiraLAX, Zoloft, Carafate, theophylline, ultram Review of Symptoms: 12 point review of symptoms was negative except as noted above Physical examination: Vital Signs: Current vital signs reviewed. General Appearance: well-appearing. Not acutely ill. Head: Normocephalic. Eyes: no scleral icterus. No scleral injection. No conjunctival pallor. Oral Cavity: Odor of breath was normal. No drooling was observed. Lips showed no abnormalities. Lungs: Respiration rhythm and depth was normal. Cardiovascular: Heart rate and rhythm were normal. Abdomen: abdomen was not distended. Abdominal auscultation revealed no abnormalities. Ascites was not discovered. Abdominal palpation revealed no tenderness and no hepatosplenomegaly. Musculoskeletal System: musculoskeletal system was grossly normal. Neurological: level of consciousness was normal. Speech was normal. No coordination/cerebellum abnormalities were noted. Skin: Gen. appearance was normal. Color and pigmentation were normal. No skin lesions were appreciated. Laboratory: white blood count 16.0, hemoglobin 10.1, hematocrit 33.3, platelets 246 Radiology: reviewed with no pertinent changes noted. Impressions: 1. Gastroparesis -- patient is tolerating Reglan and reports some potential benefit. She does not believe she is having side effects at present. I recommend continuing same. 2. Dysphagia -- the patient continues to have dysphagia to solid. We will plan upper endoscopy with dilation as indicated on Wednesday. 3. Constipation -- the patient is enjoying some benefit from her robust bowel regimen. We will proceed with colonoscopy on Wednesday. I recommend continuing current medication regimen. 4. Gastroesophageal reflux -- the patient reports marginal relief with current regimen. Endoscopic evaluation will help to better characterize the anatomy and we will follow up with further recommendations pending the results of that examination 5. Patient Counseling: Medical Management: Patient seen for greater than 30 minutes. Greater than 50% of this time was spent counseling regarding differential diagnosis, likely diagnosis,, diagnostic and therapeutic options, risks, benefits, and alternatives to procedures and medications, informed consent, and plan of care generally. Patient has expressed understanding and wishes to proceed. Recommendations: -- continue volume management -- continue bowel regimen -- continue proton pump inhibitor -- continued Reglan -- we will proceed with upper endoscopy esophageal dilation and colonoscopy on Wednesday -- we will continue to follow with you
--- NOTE | 2016-12-05 20:13 | Pulmonology Progress Note ---
Pulmonary - PN: Subj Interval history: 76-year-old female with COPD admitted for an exacerbation. Also with a history of GERD and aspiration. No acute events overnight. Patient reports significant improvement in breathing since admission. She is planned for EGD/ colonoscopy on Wednesday. Exam (Progress Note) - Constitutional Vitals: Period Temp Pulse Resp BP Sys/Hemphill Pulse Ox Last 24 Hr 97 F-98.3 F 67-99 16-203 111-133/63-75 94-99 General appearance: over weight - Head Head exam: Present: normal inspection - Eye Eye exam: Present: EOMI Pupils: Present: ENRICO - Neck Neck exam: Present: normal inspection - Respiratory Respiratory exam: Present: clear to auscultation bilaterally. Absent: rales, rhonchi, wheezes - Cardiovascular Cardiovascular exam: Present: regular rate and rhythm - GI/Abdominal GI/Abdominal exam: Present: normal bowel sounds, soft. Absent: tenderness - Extremities Exam Extremities exam: Present: normal inspection. Absent: edema - Neurological Exam Neurological exam: Present: alert, oriented X3, CN II-XII intact - Psychiatric Psychiatric exam: Present: normal affect - Skin Skin exam: Present: warm, dry Results - Labs CBC & BMP: 12/05/16 04:32 12/05/16 04:32 Assessment and Plan (1) COPD exacerbation Status: Chronic Assessment and plan: Significantly improved from admission. Continue current therapies. Current Visit: No (2) Dysphagia Status: Acute Assessment and plan: Appreciate GIs assistance. Patient plan for EGD on Wednesday. N.p.o. after midnight Wednesday. Current Visit: Yes (3) GERD (gastroesophageal reflux disease) Status: Acute Assessment and plan: Slight improvement with current therapies. EGD planned for Wednesday. Current Visit: Yes (4) Gastroparesis Status: Acute Assessment and plan: Improving with Reglan. Continue current management. Current Visit: Yes
[2016-12-05] MEDS: clonazePAM 0.5 MG TABLET PO PRN (21:51)
[2016-12-05] MEDS: SERTRALINE 50 MG TABLET PO SCH (21:52)
[2016-12-06 05:59] LABS: Basophils % 0.1 % (0.0-0.8); Hematocrit 32.9 VOL% (35.7-47.0); Hemoglobin 9.8 GM/DL (12.0-16.0); Immature Granulocytes % 1.5 %; Immature Granulocytes Absolute 0.21 #; Lymphocytes # 0.7 10*3/uL (1.4-4.0); Lymphocytes % 4.8 % (21.3-54.2); Mean Corpuscular HGB Conc 29.8 GM/DL (32-36); Mean Corpuscular Hemoglobin 26 PG (27-34); Mean Corpuscular Volume 88.4 FL (87-102); Mean Platelet Volume 12.1 FL (9.6-12.0); Monocytes # 0.5 10*3/uL (0.11-0.8); Monocytes % 3.7 % (1.7-12.7); Neutrophils # 12.6 10*3/uL (1.4-7.4); Neutrophils % 89.9 % (38.7-73.9); Platelet Count 228 T/CUMM (130-400); Red Blood Count 3.72 MC/CUMM (3.8-5.5); Red Cell Distribution Width 16.4 % (9.3-17.3); White Blood Count 14.1 T/CUMM (4-12)
[2016-12-06] MEDS: ALBUTEROL 2 MG TABLET PO SCH ×2 (06:13→20:42)
[2016-12-06] MEDS: methylPREDNISolone SOD SUC 40 MG/1 ML VIAL IV SCH ×2 (06:13→13:51)
[2016-12-06] MEDS: LEVOTHYROXINE 112 MCG TABLET PO SCH (06:13)
[2016-12-06] MEDS: MEROPENEM 1,000 MG in SODIUM CHLORIDE 0.9% 100 ML IV SCH ×3 (06:13→21:01)
[2016-12-06 06:39] LABS: Calcium 8.6 MG/DL (8.5-10.1); Potassium 4.7 MMOL/L (3.5-5.1)
[2016-12-06 07:03] LABS: Lymphocytes 5 % (20-55); Microcytosis 1+; Nucleated Red Blood Cells 1 (0-5); Segmented Neutrophils 93 % (50-85); Total Cells Counted 100
[2016-12-06 07:04] LABS: Hypochromasia 1+
[2016-12-06 07:05] LABS: Platelet Estimate Normal
[2016-12-06] MEDS: SUCRALFATE 1 GM TABLET PO SCH ×4 (07:31→20:42)
[2016-12-06] MEDS: METOCLOPRAMIDE 10 MG/10 ML UDCUP PO SCH ×4 (07:31→20:41)
[2016-12-06] MEDS: ALBUTEROL/IPRATROPIUM 3 ML NEB RESP TX SCH ×4 (07:36→20:01)
[2016-12-06] MEDS: CYCLOBENZAPRINE 10 MG TABLET PO SCH ×2 (08:08→20:43)
[2016-12-06] MEDS: traMADol 50 MG TABLET PO PRN (08:08)
[2016-12-06] MEDS: THEOPHYLLINE ER 300 MG TABLET PO SCH ×2 (08:08→20:43)
[2016-12-06] MEDS: FEXOFENADINE 180 MG TABLET PO SCH (08:08)
[2016-12-06] MEDS: PANTOPRAZOLE 40 MG TABLET PO SCH ×2 (08:08→20:43)
[2016-12-06] MEDS: NEBIVOLOL 5 MG TABLET PO SCH (08:08)
[2016-12-06] MEDS: ISOSORBIDE MONONITRATE 30 MG TABLET PO SCH (08:08)
[2016-12-06] MEDS: BISACODYL 5 MG TABLET PO SCH ×3 (08:09→20:41)
[2016-12-06] MEDS ORDERED: MAGNESIUM CITRATE 300 ML BOTTLE PO ONE ×2 (16:00→22:35)
--- NOTE | 2016-12-06 16:16 | Pulmonology Progress Note ---
Pulmonary - PN: Subj Interval history: 76-year-old female with COPD admitted for an exacerbation. Also with a history of GERD and aspiration. No acute events overnight. Patient reports significant improvement in breathing since admission. She is planned for EGD/ colonoscopy on tomorrow. Exam (Progress Note) - Constitutional Vitals: Period Temp Pulse Resp BP Sys/Hemphill Pulse Ox Last 24 Hr 96.7 F-98.6 F 70-87 16-20 123-153/57-84 93-99 General appearance: over weight - Head Head exam: Present: normal inspection - Eye Eye exam: Present: EOMI. Absent: scleral icterus Pupils: Present: ENRICO - Neck Neck exam: Present: normal inspection - Respiratory Respiratory exam: Present: clear to auscultation bilaterally. Absent: rales, rhonchi, wheezes - Cardiovascular Cardiovascular exam: Present: regular rate and rhythm - GI/Abdominal GI/Abdominal exam: Present: normal bowel sounds, soft. Absent: tenderness - Extremities Exam Extremities exam: Present: normal inspection. Absent: edema - Neurological Exam Neurological exam: Present: alert, oriented X3, CN II-XII intact - Skin Skin exam: Present: warm, dry Results - Labs CBC & BMP: 12/06/16 05:14 12/06/16 05:14 Assessment and Plan (1) COPD exacerbation Status: Chronic Assessment and plan: Significantly improved from admission. Will taper steroid dose. Continue bronchodilators. Current Visit: No (2) Dysphagia Status: Acute Assessment and plan: Appreciate GIs assistance. Patient plan for EGD/colonoscopy on Wednesday. Bowel prep currently ongoing. N.p.o. after midnight tonight. Current Visit: Yes (3) GERD (gastroesophageal reflux disease) Status: Acute Assessment and plan: Slight improvement with current therapies. EGD planned for Wednesday. Current Visit: Yes (4) Gastroparesis Status: Acute Assessment and plan: Improving with Reglan. Continue current management. Current Visit: Yes
[2016-12-06] MEDS ORDERED: POLYETHYLENE GLYCOL POWDER 255 GM BOTTLE PO ONE (18:00)
[2016-12-06] MEDS: SERTRALINE 50 MG TABLET PO SCH (20:42)
[2016-12-07] MEDS: BISACODYL 5 MG TABLET PO SCH (01:22)
[2016-12-07] MEDS: MEROPENEM 1,000 MG in SODIUM CHLORIDE 0.9% 100 ML IV SCH ×3 (05:06→21:28)
[2016-12-07] MEDS: ALBUTEROL 2 MG TABLET PO SCH ×3 (05:50→21:27)
[2016-12-07] MEDS: LEVOTHYROXINE 112 MCG TABLET PO SCH ×2 (06:19→10:02)
[2016-12-07] MEDS: ALBUTEROL/IPRATROPIUM 3 ML NEB RESP TX SCH ×4 (07:00→19:40)
[2016-12-07] MEDS: METOCLOPRAMIDE 10 MG/10 ML UDCUP PO SCH ×5 (07:50→21:27)
[2016-12-07] MEDS: SUCRALFATE 1 GM TABLET PO SCH ×5 (07:50→21:27)
[2016-12-07] MEDS ORDERED: PROPOFOL 200 MG/20 ML VIAL IV ONE (08:15)
[2016-12-07] MEDS ORDERED: LIDOCAINE 100 MG/5 ML SYRINGE ONE (08:15)
--- NOTE | 2016-12-07 08:20 | Operative Note ---
Date of procedure: 12/07/16 Pre-op diagnosis: Anemia, dysphagia,and history of gastroparesis Post-op diagnosis: other (LA class B erosive esophagitis, dilation to 57 [place] by single pass Savary dilator accomplished. Mild patchy gastritis noted, slight amount of retained fluid in the stomach indicative of mild gastroparesis) Procedure: PROCEDURE: Esophagogastroduodenoscopy (EGD) with cold biopsy for pathology and dilation to 57 [place] bicycle passed Savary dilator REFERRING PHYSICIAN: Rigoberto Conrad MD INDICATIONS: Dysphagia, anemia with hematocrit of 32% and history of gastroparesis the prior H&P was reviewed and interrim changes are as noted: No change from GI consultation 12/04/16 ENDOSCOPIST: Antwan Light MD ENDOSCOPE: Olympus Video 100 System upper endoscope ASA CLASS: 4 EXAM: CV: regular rate and rhythm respiratory: Clear without wheezes abdominal: active bowel sounds MEDICATION: Per nursing anesthesia protocol, see their notes PROCEDURE: After discussion of the potential risks and benefits of upper endoscopy, the informed consent was obtained. The patient was then placed in the left lateral decubitus position where sedation was achieved as noted above. Esophageal intubation was performed without difficulty, and the endoscope was advanced through the esophagus, stomach and duodenum. A slow withdrawal was then performed with retroflexion in the stomach for careful inspection of the incisura angularis, fundus and cardia. The scope was then returned to a neutral position and withdrawn through the esophagus. The patient tolerated the procedure well and without complication. BIOPSIES: Gastric antrum/body PHOTOGRAPHS: Obtained FINDINGS: Hypopharynx and Larynx: Normal Esohagoscopy Upper and middle thirds: Normal Lower third LA class B erosive esophagitis Esophogastric junctions: LA class B erosive esophagitis, this area was dilated to 57 [place] by single pass Savary dilator Gastroscopy: Cardia/Fundus: Retained pool of liquid and pills in the fundus indicative of mild gastroparesis Body: Moderate patchy gastritis, biopsied, 2 cm hiatal hernia, 2 cm hiatal hernia noted Antrum and pylorus mild patchy gastritis, biopsied, slight narrowing to the pyloric channel Duodenoscopy: Bulb normal, biopsied for celiac sprue Second and third portions: normal, biopsied for celiac sprue IMPRESSION: LA class B erosive esophagitis, dilation to 57 [place] by single pass Savary dilator accomplished. Mild patchy gastritis noted, slight amount of retained fluid in the stomach indicative of mild gastroparesis RECOMMENDATIONS: Follow up for biopsy results in 1-2 weeks by phone [phone] Continue anti-gastroesophageal reflux measures (avoid carbonated and acidic beverages, avoid eating within 2 hours of bedtime, avoid tight fitting clothing , and elevate the front bed posts 6 inches prior to sleeping. Antwan Light MD COPY TO: Rigoberto Conrad MD Anesthesia: MAC Surgeon / Physician: Antwan Light Estimated blood loss: minimal Specimens: other (Gastric antrum/body, duodenum) Condition: stable Disposition: post procedure unit (G.I. Suite) Results - Labs CBC & BMP: 12/06/16 05:14 12/06/16 05:14 Discharge Plan - Discharge Medications No Action Pantoprazole Tab [Protonix Tab] 40 mg PO BID Ondansetron HCl 4 mg PO Q8HR PRN PRN Reason: Nausea Fexofenadine [Yari] 180 mg PO DAILY clonazePAM [Clonazepam] 0.5 mg PO TID PRN PRN Reason: anxiety Methocarbamol 500 mg PO Q8HR PRN PRN Reason: Muscle Spasm Ciprofloxacin Tab [Cipro Tab] 250 mg PO BID Clopidogrel [Plavix] 75 mg PO DAILY Benzonatate 100 mg PO TID Sertraline [Zoloft] 50 mg PO BEDTIME Isosorbide Mononitrate [Imdur] 30 mg PO DAILY Montelukast Tab [Singulair Tab] 10 mg PO DAILY Levothyroxine Tab [Synthroid Tab] 112 mcg PO DAILY@0700 Theophylline ER Tab 300 mg PO Q12HR Penicillin Vk Tab 250 mg PO Q6HR Aspirin Tab 325 mg PO DAILY Fluticasone Furoate [Flonase Sensimist] 9.9 ml NS BID Diclofenac 1% Gel [Voltaren 1% Gel] 1 applic TOP QID PRN PRN Reason: Pain Cyclobenzaprine [Flexeril] 10 mg PO BID Tramadol HCl [Tramadol Tab] 50 mg PO QID PRN PRN Reason: Pain Nebivolol [Bystolic] 5 mg PO DAILY Albuterol Tab [Proventil Tab] 1 mg PO 2100 Albuterol Tab [Proventil Tab] 2 mg PO 0600 - Follow Up or Referral - Forms/Instructions
--- NOTE | 2016-12-07 08:24 | Operative Note ---
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 This patient does have some fecal incontinence with her chronic constipation. The prior H&P was reviewed and interrim changes are as noted: No change from GI consultation on 12/04/16 ENDOSCOPIST: Antwan Light MD ENDOSCOPE: [employer] Video 100 System colonoscope COLON PREPARATION: 238 gm of PEG containing laxative and 1.9 liters of gatoraid/sports drink and dulcolax 15 mg q8 hours x 3 ASA CLASS: 4 EXAM: CV: regular rate and rhythm Respiratory: Clear without wheezes Abdominal: active bowel sounds Rectal: Good tone, no fissures or fistulas MEDICATION: Per nursing anesthesia protocol, see their notes PROCEDURE: After discussion of the potential risks and benefits of colonoscopy, the informed consent was obtained, from patient or health care surrogate. The patient was then placed in the left lateral decubitus position where sedation was achieved as noted above. Rectal examination was followed by insertion of the colonoscope. The colonoscope was passed under direct visualization to the cecum. Advancement was facilitated by insertion/withdrawl techniques, abdominal pressure and patient positioning. Once the cecal pole was reached, slow withdrawal was performed with the findings as noted below. The patient tolerated the procedure well and without complication. QUALITY OF PREP: Excellent WITHDRAWL TIME: 7 minutes 33 seconds BIOPSIES: Ascending polyps PHOTOGRAPHS: Obtained FINDINGS: The musoca appeared normal in the following regions: rectum, sigmoid colon, descending colon, splenic flexure, transverse colon, hepatic flexure, and cecum. Position within the cecum was confirmed by ileocecal valve , appendiceal oriface, and the convergence of folds (crows foot). No colitis, or mass was noted throughout the colon. There was a single 7 mm AVM noted at the cecum cauterized with BiCAP cautery. The patient also had 2 small polyps noted in the ascending colon 7 and 8 mm removed by hot biopsy polypectomy. Moderate segura-diverticulosis noted. Intubation of the TI was achieved x 5 cm with normal appearence, large internal hemorrhoids noted. No gross evidence of prolapse on today's exam. 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 RECOMMENDATIONS: High fiber diet Repeat colonosocopy will be in 5-10 years Citrucel 1 tablespoon in 12 oz juice BID: 1 bottle: :11 Follow up by phone for biopsy results in 1-2 weeks by phone Antwan Light MD COPY TO: Rigoberto Conrad MD Anesthesia: MAC Surgeon / Physician: Antwan Light Estimated blood loss: minimal Specimens: other (Ascending polyps 2) Condition: stable Disposition: post procedure unit (G.I. Suite) Results - Labs CBC & BMP: 12/06/16 05:14 12/06/16 05:14 Discharge Plan - Discharge Medications No Action Pantoprazole Tab [Protonix Tab] 40 mg PO BID Ondansetron HCl 4 mg PO Q8HR PRN PRN Reason: Nausea Fexofenadine [Yari] 180 mg PO DAILY clonazePAM [Clonazepam] 0.5 mg PO TID PRN PRN Reason: anxiety Methocarbamol 500 mg PO Q8HR PRN PRN Reason: Muscle Spasm Ciprofloxacin Tab [Cipro Tab] 250 mg PO BID Clopidogrel [Plavix] 75 mg PO DAILY Benzonatate 100 mg PO TID Sertraline [Zoloft] 50 mg PO BEDTIME Isosorbide Mononitrate [Imdur] 30 mg PO DAILY Montelukast Tab [Singulair Tab] 10 mg PO DAILY Levothyroxine Tab [Synthroid Tab] 112 mcg PO DAILY@0700 Theophylline ER Tab 300 mg PO Q12HR Penicillin Vk Tab 250 mg PO Q6HR Aspirin Tab 325 mg PO DAILY Fluticasone Furoate [Flonase Sensimist] 9.9 ml NS BID Diclofenac 1% Gel [Voltaren 1% Gel] 1 applic TOP QID PRN PRN Reason: Pain Cyclobenzaprine [Flexeril] 10 mg PO BID Tramadol HCl [Tramadol Tab] 50 mg PO QID PRN PRN Reason: Pain Nebivolol [Bystolic] 5 mg PO DAILY Albuterol Tab [Proventil Tab] 1 mg PO 2100 Albuterol Tab [Proventil Tab] 2 mg PO 0600 - Follow Up or Referral - Forms/Instructions
--- NOTE | 2016-12-07 09:00 | Anesthesia Post-Op ---
Anesthesia Post OP - Post Ansesthetic Evaluation Patient seen in post op: Yes Resp: within normal limits CV: within normal limits Mental: within normal limits Temp: within normal limits [id number]: within normal limits Nausea and Vomiting: within normal limits Pain: within normal limits
--- NOTE | 2016-12-07 09:02 | Gastrointestinal Progress Note ---
Assessment and Plan (1) Gastroparesis Status: Acute Assessment and plan: Patient states that she did fairly well with Reglan before this was discontinued. She did get some worsening shaking in her hands due to this. She does have a history of parkinsonism which can be worsened by Reglan but if we use a low dose she may get some relief without having excessive side effects. We will observe her as this is restarted. 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 This may be difficult for her to a hold of. 12/07/16--The patient does not appear to have any agitation now that she has been on the Reglan over the weekend. Furthermore at the 5 mg q. before meals and nightly dose of the elixir she appears to have good emptying of her stomach with only a few pills remaining and a scant amount of fluid seen on upper endoscopy today. She does continue to have LA class B erosive esophagitis and hopefully this will be treated with Protonix twice daily and time along with Reglan to help empty her stomach. Current Visit: Yes (2) History of dysphagia Status: Acute Assessment and plan: The patient has a history of dysphagia and was not able to afford the Dexilant after being taken off of Protonix. She states that she has been using Zantac as an outpatient instead although numerous times per day. This is not going to be as effective for his take the Protonix twice daily. This is been restarted here in the hospital by Dr. Conrad. She is not really having true dysphagia at this time. We might consider doing a dilation though if we see a stricture in the distal esophagus and upper endoscopy which is due to occur on 12/07/16. 12/03/16--Patient did well she did not have any gross evidence of stricturing but was dilated to 57 [place] was single pass Savary dilator with good effect. I suspect that she likely has spasm secondary to the LA class B esophagitis and motility issues. This is been worsened over time by the underlying gastroparesis which appears to be improved with the low-dose Reglan. We simply need to watch her further for tardive dyskinesia side effects and continue the medication. Current Visit: Yes (3) Chronic constipation Status: Acute Assessment and plan: The patient is to be getting a bowel prep on Wednesday afternoon in order to undergo colonoscopy on Wednesday. She has not had this done in the recent past. This needs to be done before being considered for rectal prolapse repair which she would like to explore in the future, provided this is severe enough to warrant surgery. Dr. Garcia does this repair locally here in [place] or she could like to go to [facility] to have it done at another institution. Will rule out polyps and cancer before she considers this. 12/07/16--the patient does have 2 polyps noted on colonoscopy which were removed by hot biopsy further there was a single AVM noted in the cecum that was cauterized using BiCAP cautery. She appears to be responding well to the Linzess. She has also achieved complete flushing with the MiraLAX which could likely be used as an alternative if Linzess proves to be too expensive for this patient. It does work well at a high dosage for this patient. It is going to be important to keep her bowels soft as she does have a tendency towards rectal prolapse. Current Visit: Yes (4) Rectal prolapse Status: Acute Assessment and plan: As noted above. This might be able to be repaired locally by Dr. Garcia. He is the only physician here who does rectal prolapse repairs. 12/07/16--The patient did well on colonoscopy. There was no gross evidence of prolapse on today's exam. Repeat colonoscopy based on the findings of pathology likely 5-10 years. Current Visit: Yes Gastroenterology - PN: Subj Interval history: No new complaints. Exam (Progress Note) - Constitutional Vitals: Period Temp Pulse Resp BP Sys/Hemphill Pulse Ox Last 24 Hr 96.5 F-98.0 F 65-78 16-20 126-163/72-94 92-100 General appearance: mild distress - Head Head exam: Present: normocephalic - Eye Eye exam: Present: EOMI Pupils: Present: ENRICO - Respiratory Respiratory exam: Present: clear to auscultation bilaterally - Cardiovascular Cardiovascular exam: Present: regular rate and rhythm - GI/Abdominal GI/Abdominal exam: Present: normal bowel sounds, tenderness (Minimal periumbilical), soft. Absent: distended, rebound - Extremities Exam Extremities exam: Absent: edema - Neurological Exam Neurological exam: Present: alert, oriented X3 - Psychiatric Psychiatric exam: Present: normal affect, normal mood - Skin Skin exam: Present: warm Results - Labs CBC & BMP: 12/06/16 05:14 12/06/16 05:14
[2016-12-07] MEDS: ISOSORBIDE MONONITRATE 30 MG TABLET PO SCH ×2 (09:11→10:03)
[2016-12-07] MEDS: CYCLOBENZAPRINE 10 MG TABLET PO SCH ×3 (09:11→21:27)
[2016-12-07] MEDS: FEXOFENADINE 180 MG TABLET PO SCH ×2 (09:11→10:02)
[2016-12-07] MEDS: NEBIVOLOL 5 MG TABLET PO SCH ×2 (09:11→10:02)
[2016-12-07] MEDS: methylPREDNISolone SOD SUC 40 MG/1 ML VIAL IV SCH ×2 (09:12→10:04)
[2016-12-07] MEDS: PANTOPRAZOLE 40 MG TABLET PO SCH ×3 (09:12→21:27)
[2016-12-07] MEDS: THEOPHYLLINE ER 300 MG TABLET PO SCH ×3 (09:12→21:27)
[2016-12-07] MEDS: traMADol 50 MG TABLET PO PRN ×2 (10:05→23:39)
[2016-12-07] MEDS: ONDANSETRON 4 MG TABLET PO PRN (10:06)
--- NOTE | 2016-12-07 10:26 | Pulmonology Progress Note ---
Pulmonary - PN: Subj Interval history: Zeus Mcgrath, ANP-BC, GNP-BC, acting as scribe for Dr. Rigoberto Conrad Mrs. Hedrick is a 76 year old white female who was directly admitted 12/03/16 for an acute exacerbation of COPD and acute bronchitis with bronchospasm. She is an outpatient treatment failure. Other past history includes: gastroesophageal reflux disease with history of reflux aspiration, gastroparesis, history of CAD , HTN, HLD, Parkinson's Disease, and Hypothyroidism. 12/04/16. The patient was seen today along with her and Camille Lilly RN. She states that her breathing is much improved from admission. Upon questioning , she is having a terrific amount of reflux up into her throat and this is almost certainly hindering her pulmonary improvement. She states it is time for her to see Dr. Light again regarding her colonscopy and repeat EGD. We have her on Protonix, but will add Carafate. She can continue to have Mylanta PRN. We will consult Dr. Light for evaluation and treatment. 12/07/16. The patient was seen today along with her and Pedro Carmen RN. Earlier today the patient underwent EGD and colonoscopy as per Dr. Light. Those notes have been reviewed. EGD showed LA class B erosive esophagitis, mild patchy gastritis, and a slight amount of retained fluid in the stomach indicative of mild gastroparesis. The patient was dilated as well. 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 She was started on Reglan Wednesday and has tolerated this well. Biopsies are, of course, pending. Sputum culture is growing a yeast. We have started Diflucan 200 mg daily for 7 days. Blood cultures are negative.We have asked that she be up and ambulatory this afternoon with the assistance of her once all of her sedation wears off. If she continues to do well, we hope to possibly discharge her tomorrow. Medications have been reviewed. Diflucan added as above. Labs have been reviewed. White count is 14,100 with 89.9% segs; H&H 9.8/32.9; platelet count 228,000; creatinine 1.00, BUN 22, electrolytes are normal Exam (Progress Note) - Constitutional Vitals: Period Temp Pulse Resp BP Sys/Hemphill Pulse Ox Last 24 Hr 96.5 F-98.0 F 65-78 16-20 126-163/72-94 92-100 Exam: Chest with much better air movement and nearly wheeze free Heart no gallop Abd is nontender and nondistended; BS positive x 4 Ext with nothing to suggest acute DVT Psych oriented x 3 Neuro long tract motor function is intact Plan: Continue present treatment with the addition of Diflucan 200 mg daily for 7 days. Ambulate in the halls today with the assistance of her . See orders. She could possibly be ready for discharge tomorrow. Results - Labs CBC & BMP: 12/06/16 05:14 12/06/16 05:14
[2016-12-07] MEDS: clonazePAM 0.5 MG TABLET PO PRN ×2 (13:40→21:27)
[2016-12-07] MEDS: FLUCONAZOLE 200 MG TABLET PO SCH ×2 (13:40→14:30)
[2016-12-07] MEDS: SERTRALINE 50 MG TABLET PO SCH (21:28)
[2016-12-08] MEDS: ALBUTEROL 2 MG TABLET PO SCH (07:03)
[2016-12-08] MEDS: MEROPENEM 1,000 MG in SODIUM CHLORIDE 0.9% 100 ML IV SCH (07:03)
[2016-12-08] MEDS: LEVOTHYROXINE 112 MCG TABLET PO SCH (07:03)
[2016-12-08] MEDS: ALBUTEROL/IPRATROPIUM 3 ML NEB RESP TX SCH (07:19)
[2016-12-08] MEDS: CYCLOBENZAPRINE 10 MG TABLET PO SCH (08:53)
[2016-12-08] MEDS: NEBIVOLOL 5 MG TABLET PO SCH (08:53)
[2016-12-08] MEDS: FLUCONAZOLE 200 MG TABLET PO SCH (08:53)
[2016-12-08] MEDS: METOCLOPRAMIDE 10 MG/10 ML UDCUP PO SCH (08:53)
[2016-12-08] MEDS: PANTOPRAZOLE 40 MG TABLET PO SCH (08:54)
[2016-12-08] MEDS: CLOPIDOGREL 75 MG TABLET PO SCH (08:54)
[2016-12-08] MEDS: ASPIRIN 325 MG TABLET PO SCH (08:54)
[2016-12-08] MEDS: ISOSORBIDE MONONITRATE 30 MG TABLET PO SCH (08:54)
[2016-12-08] MEDS: THEOPHYLLINE ER 300 MG TABLET PO SCH (08:54)
[2016-12-08] MEDS: SUCRALFATE 1 GM TABLET PO SCH (08:54)
[2016-12-08] MEDS: FEXOFENADINE 180 MG TABLET PO SCH (08:54)
[2016-12-08] MEDS: methylPREDNISolone SOD SUC 40 MG/1 ML VIAL IV SCH (08:54)
[2016-12-08 09:50] VITALS: BP 133/90
--- NOTE | 2016-12-08 10:19 | Pulmonology Progress Note ---
Pulmonary - PN: Subj Interval history: Zeus Mcgrath, ANP-BC, GNP-BC, acting as scribe for Dr. Rigoberto Conrad Mrs. Hedrick is a 76 year old white female who was directly admitted 12/03/16 for an acute exacerbation of COPD and acute bronchitis with bronchospasm. She is an outpatient treatment failure. Other past history includes: gastroesophageal reflux disease with history of reflux aspiration, gastroparesis, history of CAD , HTN, HLD, Parkinson's Disease, and Hypothyroidism. 12/04/16. The patient was seen today along with her and Camille Lilly RN. She states that her breathing is much improved from admission. Upon questioning , she is having a terrific amount of reflux up into her throat and this is almost certainly hindering her pulmonary improvement. She states it is time for her to see Dr. Light again regarding her colonscopy and repeat EGD. We have her on Protonix, but will add Carafate. She can continue to have Mylanta PRN. We will consult Dr. Light for evaluation and treatment. 12/07/16. The patient was seen today along with her and Pedro Carmen RN. Earlier today the patient underwent EGD and colonoscopy as per Dr. Light. Those notes have been reviewed. EGD showed LA class B erosive esophagitis, mild patchy gastritis, and a slight amount of retained fluid in the stomach indicative of mild gastroparesis. The patient was dilated as well. 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 She was started on Reglan Wednesday and has tolerated this well. Biopsies are, of course, pending. Sputum culture is growing a yeast. We have started Diflucan 200 mg daily for 7 days. Blood cultures are negative.We have asked that she be up and ambulatory this afternoon with the assistance of her once all of her sedation wears off. If she continues to do well, we hope to possibly discharge her tomorrow. 12/08/16. The patient was seen today along with her and Pedro Carmen RN. Mrs. Hedrick is doing remarkably well this morning. We again discussed reflux precautions with this patient. Certainly, significant reflux worsens her pulmonary status. She understands everything that was discussed today. She has been ambulatory and her breathing has remained stable. Medications have been reviewed. Labs have been reviewed. No new labs were drawn today. Exam (Progress Note) - Constitutional Vitals: Period Temp Pulse Resp BP Sys/Hemphill Pulse Ox Last 24 Hr 97.5 F-98.1 F 55-96 17-20 100-134/57-90 94-99 Exam: Chest with much better air movement and wheeze free Heart no gallop Abd is nontender and nondistended; BS positive x 4 Ext with nothing to suggest acute DVT Psych oriented x 3 Neuro long tract motor function is intact Plan: The patient has now met maximum hospital benefit and will be discharged home. Please see my discharge summary dated 12/08/2016. Results - Labs CBC & BMP: 12/06/16 05:14 12/06/16 05:14
--- NOTE | 2016-12-08 10:27 | Discharge Summary ---
Hospital Course - Hospital Course Hospital Course: Zeus Mcgrath, ANP-BC, GNP-BC, acting as scribe for Dr. Rigoberto Conrad Mrs. Hedrick is a 76 year old white female who was directly admitted 12/03/16 for an acute exacerbation of COPD and acute bronchitis with bronchospasm. She was an outpatient treatment failure. Other past history includes: gastroesophageal reflux disease with history of reflux aspiration, gastroparesis, history of CAD , HTN, HLD, Parkinson's Disease, and hypothyroidism. She was admitted and started on IV Solu-Medrol, inhalation therapy, and Merrem. By the day after admission, the patient's respiratory status had markedly improved. She continues to complain of significant reflux which would come up into her throat. We felt this was significantly hindering her pulmonary improvement. Dr. Light was consulted. On 12/07/2016 Dr. Light performed an EGD and colonoscopy. EGD showed LA class B erosive esophagitis, mild patchy gastritis, and a slight amount of retained fluid in the stomach indicative of mild gastroparesis. The patient was dilated as well. She was started on low-dose Reglan and is tolerating this fine. Colonoscopy showed 2 polyps in the ascending colon which were removed by hot biopsy polypectomy, single AVM was noted in the cecum which was cauterized by BiCAP cautery, and large internal hemorrhoids. Biopsies are still pending. Dr. Light is treating the patient's with Protonix twice daily, Reglan, and Linzess for chronic constipation. He noted that she will need a repeat colonoscopy based on the findings of pathology likely in 5-10 years. Sputum culture has grown Modesta albicans. She was started on Diflucan 2016. She will take this for a total of 7 days. Sputum Gram stain showed few gram-positive cocci. Blood cultures grew no organisms. Cold agglutinins were negative. Legionella is pending at the time of discharge. ABGs done at admission on an unlisted FiO2 showed a pH of 7.446, PCO2 42.1, PO2 76.2, bicarb 28.3, and oxygen saturation 94.8%. At discharge, white count is 14,100 with 89.9% segs, 4.8% lymphs, and 3.7% monos ; H&H 9.8/32.9 with low to low normal indices and top normal red blood cell distribution with; platelet count 228,000; creatinine 1.00, BUN 22, sodium 143, potassium 4.7, chloride 107, magnesium 2.6; calcium 8.6, albumin 3.6, total protein 6.4; liver function tests within normal limits; theophylline level 11.0 ; TSH and free T4 were normal at 1.010 and 1.07 respectively; urinalysis obtained at admission showed no evidence of infection. The patient is back to her baseline. She is breathing well without increased shortness of breath or dyspnea on exertion. She has a slight cough that is mainly nonproductive. Sputum is clear. She is swallowing well and eating well. She is now ready for discharge. For more information regarding Mrs. Hedrick's past medical history, surgical history, family history, social history, admit labs, admit x-rays and admit exam , please see the admission note dated 12/03/2016. Impression: #1 Acute exacerbation of COPD, refractory to outpatient treatment--- resolved #2 Acute bronchitis with bronchospasm--- resolved #3 Suspected pneumonia secondary to productive cough with discolored sputum; not found #4 Gastroesophageal reflux disease with history of reflux aspiration #5 Gastroparesis #6 History of CAD #7 HTN #8 HLD #9 Parkinson's Disease #10 Hypothyroidism #11 See past history Plan: Albuterol 2 mg daily at 6 AM and 1 mg daily at 9 PM, aspirin 325 mg daily , Klonopin 0.5 mg 3 times daily as needed, Plavix 75 mg daily, Robaxin 500 mg every 8 hours as needed, Voltaren gel 4 times daily as needed, Yari 180 mg daily, Diflucan 200 mg daily with last dose to be 12/13/2016, Imdur 30 mg daily, Synthroid 112 g daily, Reglan liquid 5 mg before meals and at bedtime, Bystolic 5 mg daily, Zofran 4 mg every 8 hours as needed, Protonix 40 mg twice daily, Zoloft 50 mg at bedtime, Carafate 1 g before meals at bedtime, theophylline 300 mg every 12 hours, Flonase furoate nasal spray twice daily, Singulair 10 mg daily, Prednisone 10mg PO daily until next appointment, Flexeril 10mg twice daily, Tesselon 100mg 3 times a day, and Ultram 50 mg 4 times daily as needed. She will be scheduled to follow-up with Shikha Mcgrath, nurse practitioner, in approximately 2 weeks. At that time, if her wheezing has subsided we will decrease the Prednisone to 10mg every other day for another 3 weeks and then discontinue it. She can be seen sooner if needed. Specialty Discharge - Follow Up or Referrals Follow up with: Shikha Mcgrath, KEMI [Primary Care Provider] - (2-3 weeks) Discharge Plan - Discharge Data Disposition: Disch To Home/Self Care Condition at Discharge: Stable - Discharge Medications New Cefuroxime Tab [Ceftin] 500 mg PO BID #10 tablet Fluconazole Tab [Diflucan Tab] 200 mg PO DAILY #5 tablet Metoclopramide Liquid [Reglan Liquid] 5 mg PO ACHS #600 mls Pantoprazole Tab [Protonix Tab] 40 mg PO BID #60 tablet Alum/Mag/Simeth Max Str Liquid [Mylanta Max Strength Liquid] 30 ml PO Q6H PRN #0 PRN Reason: Dyspepsia Sucralfate Tab [Carafate Tab] 1 gm PO ACHS #120 tablet predniSONE TAB [PredniSONE] 10 mg PO DAILY #30 tablet Continue Ondansetron HCl 4 mg PO Q8HR PRN PRN Reason: Nausea Fexofenadine [Yari] 180 mg PO DAILY clonazePAM [Clonazepam] 0.5 mg PO TID PRN PRN Reason: anxiety Methocarbamol 500 mg PO Q8HR PRN PRN Reason: Muscle Spasm Clopidogrel [Plavix] 75 mg PO DAILY Benzonatate 100 mg PO TID Sertraline [Zoloft] 50 mg PO BEDTIME Isosorbide Mononitrate [Imdur] 30 mg PO DAILY Montelukast Tab [Singulair Tab] 10 mg PO DAILY Levothyroxine Tab [Synthroid Tab] 112 mcg PO DAILY@0700 Theophylline ER Tab 300 mg PO Q12HR Aspirin Tab 325 mg PO DAILY Fluticasone Furoate [Flonase Sensimist] 9.9 ml NS BID Diclofenac 1% Gel [Voltaren 1% Gel] 1 applic TOP QID PRN PRN Reason: Pain Cyclobenzaprine [Flexeril] 10 mg PO BID Tramadol HCl [Tramadol Tab] 50 mg PO QID PRN PRN Reason: Pain Nebivolol [Bystolic] 5 mg PO DAILY Albuterol Tab [Proventil Tab] 1 mg PO 2100 Albuterol Tab [Proventil Tab] 2 mg PO 0600 Discontinued Pantoprazole Tab [Protonix Tab] 40 mg PO BID Ciprofloxacin Tab [Cipro Tab] 250 mg PO BID Penicillin Vk Tab 250 mg PO Q6HR - Follow Up or Referral - Forms/Instructions Exam - Constitutional Vitals: Period Temp Pulse Resp BP Sys/Hemphill Pulse Ox Last 24 Hr 97.5 F-98.1 F 55-96 17-20 100-134/57-90 94-99 Discharge Results Procedures and tests throughout hospitalization: Pending Orders 12/03/16 14:15 Blood Culture Routine Legionella Pneumophilia Ab Routine Labs on day of discharge: Preliminary micro results at discharge 12/03/16 14:15 Blood Culture - Preliminary Blood No growth at 3 days 12/03/16 14:15 Blood Culture - Preliminary Blood No growth at 3 days 12/03/16 14:15 Blood Culture - Preliminary Blood No growth at 3 days DS: Provider Date of admission: 12/03/16 13:29 Primary care physician: Shikha Mcgrath Attending physician on admission: Rigoberto Conrad MD Consults: 12/04/16 11:30 Consult to Physician [CONS] Routine Comment: known to you; dysphagia and reflux Consulting Provider: Antwan Light Person Notified: aware Date Notified: 12/04/16 Time Notified: 12:05 Consult Notification Comment: left message to call me back 12/04/16 12:34 Consult to Anesthesiology [CONS] Routine Consulting Provider: Reason for Anesthesiology: Pre-op Clearance Discharging clinician: KEMI Barth
--- NOTE | 2016-12-08 14:46 | Pathology Report from [facility] ---
ACCESSION # : [id number] PATIENT NAME : Oskar Hedrick ORDERING DR : Antwan Light MD CLINICAL HX: GERD - Dysphagia POST-OP DX: #1 ? Sprue #2 BRENDA #3 Colon polyps SPECIMEN INFO: #1 Small bowel biopsy #2 BRENDA #3 Colon polyps ascending GROSS DESCRIPTION: #1 "SB" consists of an aggregate of red-chandler tissue measuring 0.8 x 0.4 cm. Submitted in cassette #1.#2 "BRENDA" consists of an aggregate of chandler tissue measuring 0.8 x 0.2 cm. Submitted in cassette #2.#3 "COLON POLYPS ASC" consists of three chandler tissue fragments collectively measuring 0.8 x 0.4 cm. Submitted in cassette #3. DIAGNOSIS FOR OSKAR HEDRICK: #1 SMALL BOWEL BIOPSY: Benign small bowel mucosa with normal villous architecture and mild chronic inflammation. No evidence of sprue.#2 GASTRIC ANTRAL BIOPSY: Chronic superficial gastritis. No evidence of malignancy. Special stains for H.pylori like organisms is negative.# 3 COLON, ASCENDING, BIOPSY: Tubular adenoma, multiple pieces. SERVICE DATE: 12/08/2016 REPORT DATE: 12/08/2016 PATHOLOGIST: Monique Mendoza III, M.D. MTDD
--- NOTE | 2016-12-15 15:08 | Physician Query Form ---
CLICK EDIT DOCUMENT TO SELECT QUERY ANSWER --> OK --> SIGN Orly Yarbrough RN Clinical Manager Of Change W) [phone] (f) [phone] [email or web address] PROVIDERS: Make your selection(s) from the choices in EACH section by typing an "x" and enter comments in the comment section. Please use your independent medical judgment in providing your response. This request does not imply that any particular answer is desired or expected. CLINICAL INDICATORS: (Providers should not edit this section) Based on documentation of "Acute bronchitis" "She is having a terrific amount of reflux up into her throat and this is almost certainly hindering her pulmonary improvement" History of dysphagia and gastroesophageal reflux disease. EGD shows gastritis. Discharged on protonix 40mg twice daily. Based on the above, could you clarify the appropriate diagnosis, if significant , that supports the above abnormalities and additional evaluation, monitoring, and/or treatment rendered: (X ) Acute bronchitis due to microaspiration ( ) Acute bronchitis due to other (please specify) ____ ( ) Other, please specify: ( ) Clinically unable to determine COMMENTS: Use of terms such as suspected, likely, or probable (associated with a specific diagnosis that is being evaluated, monitored, or treated as if it exists) are acceptable and can be restated in the discharge summary if not ruled out. MTDD
== END 2016-12-08 11:40 | disposition home or self-care (01) | DRG 178 ==
LOC: N.5E 13:29
PROVIDERS: ADMIT Internal Medicine Pulmonary Disease; ATTEND Internal Medicine Pulmonary Disease
PROC: COLONHP (2016-12-07 07:20)

== ENCOUNTER 2017-08-17 15:46 | Inpatient (IN) ==
[2017-08-17] MEDS ORDERED: ALBUTEROL/IPRATROPIUM 3 ML NEB RESP TX PRN (15:53)
[2017-08-17] MEDS: THEOPHYLLINE ER 300 MG TABLET PO SCH (17:50)
[2017-08-17] MEDS: MEROPENEM 1,000 MG in SYRINGE 1 EACH IV SCH (17:50)
[2017-08-17] MEDS: methylPREDNISolone SOD SUC 40 MG/1 ML VIAL IV SCH (17:55)
[2017-08-17 18:36] LABS: Alanine Aminotransferase 17 U/L (13-56); Albumin 3.5 G/DL (3.4-5.0); Alkaline Phosphatase 79 U/L (45-117); Aspartate Amino Transferase 23 U/L (0-37); Bilirubin,Total < 0.39 MG/DL (0.2-1.0); Blood Urea Nitrogen 15 MG/DL (7-18); Calcium 8.3 MG/DL (8.5-10.1); Glucose 71 MG/DL (74-106); Osmolality,Calculated 286.7 MOS/KG (273-304); Potassium 3.3 MMOL/L (3.5-5.1); Sodium 145 MMOL/L (136-145); Thyroid Stimulating Hormone 0.215 uIU/ml (0.358-3.74); Total Protein 6.2 G/DL (6.4-8.3)
[2017-08-17] MEDS: ALBUTEROL 2.5 MG/3 ML NEB RESP TX SCH (20:49)
[2017-08-17] MEDS: DORNASE ALFA 2.5 MG/2.5 ML VIAL RESP TX SCH (20:49)
[2017-08-17] MEDS: ALBUTEROL/IPRATROPIUM 3 ML NEB RESP TX SCH (20:49)
[2017-08-17] MEDS: FAMOTIDINE 20 MG TABLET PO SCH (21:45)
[2017-08-17] MEDS: BUDESONIDE/FORMOTEROL 160-4.5 INHALER 6 GM INH SCH (21:45)
[2017-08-17] MEDS: MONTELUKAST 10 MG TABLET PO SCH (21:45)
[2017-08-17] MEDS: ALBUTEROL 2 MG TABLET PO SCH (21:45)
[2017-08-17] MEDS: PANTOPRAZOLE 40 MG TABLET PO SCH (21:45)
[2017-08-17] MEDS: BENZONATATE 100 MG CAPSULE PO SCH (21:45)
[2017-08-18] MEDS: methylPREDNISolone SOD SUC 40 MG/1 ML VIAL IV SCH ×3 (01:30→15:33)
[2017-08-18] MEDS: MEROPENEM 1,000 MG in SYRINGE 1 EACH IV SCH ×3 (01:43→17:30)
[2017-08-18 02:57] LABS: Apearance,Urine CLEAR (Clear); Bilirubin,Urine Negative (Negative); Blood, Urine Negative (Negative); Calcium Oxalate Crystals,Urine Occasional /HPF (Few); Glucose,Urine (UA) Negative (Negative); Ketones,Urine 20 mg/dL (Negative); Mucus,Urine Occasional /LPF (Occasional); Nitrite,Urine Negative (Negative); Protein,Urine Negative; RBC,Urine <1 /HPF (0-4); Squamous Epithelial Cell,Urine Occasional /HPF (0-10); Urine Color Yellow (Yellow); Urine Specific Gravity 1.009 (1.001-1.035); Urine Urobilinogen < 2.0 EU/DL (0.2-1.0)
[2017-08-18 05:01] LABS: Basophils % 0.1 % (0.0-0.8); Hematocrit 35.5 VOL% (35.7-47.0); Hemoglobin 10.7 GM/DL (12.0-16.0); Immature Granulocytes % 0.9 %; Immature Granulocytes Absolute 0.06 #; Lymphocytes # 0.8 10*3/uL (1.4-4.0); Lymphocytes % 11.9 % (21.3-54.2); Mean Corpuscular HGB Conc 30.1 GM/DL (32-36); Mean Corpuscular Hemoglobin 26 PG (27-34); Mean Corpuscular Volume 85.3 FL (87-102); Mean Platelet Volume 11.6 FL (9.6-12.0); Monocytes # 0.2 10*3/uL (0.11-0.8); Monocytes % 3.1 % (1.7-12.7); Neutrophils # 5.9 10*3/uL (1.4-7.4); Platelet Count 206 T/CUMM (130-400); Red Blood Count 4.16 MC/CUMM (3.8-5.5); Red Cell Distribution Width 19.2 % (9.3-17.3)
[2017-08-18 05:27] LABS: Calcium 8.3 MG/DL (8.5-10.1); Potassium 4.1 MMOL/L (3.5-5.1)
[2017-08-18 05:37] LABS: Hypochromasia 1+; Microcytosis 1+
[2017-08-18 05:38] LABS: Ovalocytes Slight
[2017-08-18] MEDS: LEVOTHYROXINE 112 MCG TABLET PO SCH (05:46)
[2017-08-18] MEDS: ALBUTEROL 2.5 MG/3 ML NEB RESP TX SCH ×4 (07:53→20:19)
[2017-08-18] MEDS: ALBUTEROL/IPRATROPIUM 3 ML NEB RESP TX SCH ×4 (07:54→20:19)
[2017-08-18] MEDS: DORNASE ALFA 2.5 MG/2.5 ML VIAL RESP TX SCH ×2 (08:02→20:19)
[2017-08-18] MEDS: PANTOPRAZOLE 40 MG TABLET PO SCH ×2 (09:44→21:19)
[2017-08-18] MEDS: ISOSORBIDE MONONITRATE 30 MG TABLET PO SCH (09:44)
[2017-08-18] MEDS: ALBUTEROL 2 MG TABLET PO SCH ×3 (09:44→21:18)
[2017-08-18] MEDS: CLOPIDOGREL 75 MG TABLET PO SCH (09:45)
[2017-08-18] MEDS: BENZONATATE 100 MG CAPSULE PO SCH ×3 (09:45→21:18)
[2017-08-18] MEDS: POTASSIUM CHLORIDE 10 MEQ TABLET PO SCH (09:45)
[2017-08-18] MEDS: FAMOTIDINE 20 MG TABLET PO SCH ×2 (09:45→21:19)
[2017-08-18] MEDS: ASPIRIN 325 MG TABLET PO SCH (09:45)
[2017-08-18] MEDS: SERTRALINE 100 MG TABLET PO SCH (09:46)
[2017-08-18] MEDS: MONTELUKAST 10 MG TABLET PO SCH ×2 (09:46→21:19)
[2017-08-18] MEDS: BUDESONIDE/FORMOTEROL 160-4.5 INHALER 6 GM INH SCH ×2 (09:46→21:22)
[2017-08-18] MEDS: THEOPHYLLINE ER 300 MG TABLET PO SCH ×2 (09:46→17:31)
[2017-08-18] MEDS: clonazePAM 0.5 MG TABLET PO PRN ×2 (09:52→18:39)
[2017-08-18] MEDS: ACETAMINOPHEN 325 MG TABLET PO PRN (11:40)
[2017-08-18] MEDS: ONDANSETRON 4 MG/2 ML VIAL IV PRN (15:36)
[2017-08-18] MEDS: CYCLOBENZAPRINE 10 MG TABLET PO PRN (18:39)
[2017-08-18] MEDS: SUCRALFATE 1 GM TABLET PO SCH (21:19)
[2017-08-19] MEDS: methylPREDNISolone SOD SUC 40 MG/1 ML VIAL IV SCH ×3 (01:12→16:25)
[2017-08-19] MEDS: MEROPENEM 1,000 MG in SYRINGE 1 EACH IV SCH ×3 (01:14→18:06)
[2017-08-19] MEDS: ALBUTEROL 2.5 MG/3 ML NEB RESP TX SCH ×4 (05:25→15:10)
[2017-08-19] MEDS: ACETAMINOPHEN 325 MG TABLET PO PRN ×2 (05:39→14:38)
[2017-08-19] MEDS: LEVOTHYROXINE 112 MCG TABLET PO SCH (05:40)
[2017-08-19 05:43] LABS: Basophils % 0.1 % (0.0-0.8); Hematocrit 33.9 VOL% (35.7-47.0); Hemoglobin 10.4 GM/DL (12.0-16.0); Lymphocytes # 0.9 10*3/uL (1.4-4.0); Lymphocytes % 8.6 % (21.3-54.2); Mean Corpuscular HGB Conc 30.7 GM/DL (32-36); Mean Corpuscular Hemoglobin 26 PG (27-34); Mean Corpuscular Volume 83.9 FL (87-102); Monocytes # 0.4 10*3/uL (0.11-0.8); Monocytes % 3.5 % (1.7-12.7); NRBC # 0.02 10*3/uL; Neutrophils # 8.7 10*3/uL (1.4-7.4); Neutrophils % 85.8 % (38.7-73.9); Platelet Count 250 T/CUMM (130-400); Red Blood Count 4.04 MC/CUMM (3.8-5.5); Red Cell Distribution Width 19.2 % (9.3-17.3); White Blood Count 10.1 T/CUMM (4-12)
[2017-08-19 06:17] LABS: Osmolality,Calculated 289.8 MOS/KG (273-304); Potassium 3.7 MMOL/L (3.5-5.1)
[2017-08-19 06:20] LABS: Band Neutrophils 1 % (0-10); Hypochromasia 1+; Lymphocytes 6 % (20-55); Segmented Neutrophils 88 % (50-85); Total Cells Counted 100
[2017-08-19 06:21] LABS: Microcytosis 1+
[2017-08-19] MEDS: DORNASE ALFA 2.5 MG/2.5 ML VIAL RESP TX SCH ×2 (08:10→20:07)
[2017-08-19] MEDS: ALBUTEROL/IPRATROPIUM 3 ML NEB RESP TX SCH ×4 (08:10→20:07)
[2017-08-19] MEDS: SUCRALFATE 1 GM TABLET PO SCH ×4 (09:01→21:45)
[2017-08-19] MEDS: THEOPHYLLINE ER 300 MG TABLET PO SCH ×2 (09:02→18:05)
[2017-08-19] MEDS: SERTRALINE 100 MG TABLET PO SCH (09:02)
[2017-08-19] MEDS: FAMOTIDINE 20 MG TABLET PO SCH ×2 (09:02→21:45)
[2017-08-19] MEDS: ISOSORBIDE MONONITRATE 30 MG TABLET PO SCH (09:02)
[2017-08-19] MEDS: CLOPIDOGREL 75 MG TABLET PO SCH (09:02)
[2017-08-19] MEDS: ASPIRIN 325 MG TABLET PO SCH (09:02)
[2017-08-19] MEDS: PANTOPRAZOLE 40 MG TABLET PO SCH ×2 (09:02→21:46)
[2017-08-19] MEDS: ALBUTEROL 2 MG TABLET PO SCH ×3 (09:03→21:51)
[2017-08-19] MEDS: MONTELUKAST 10 MG TABLET PO SCH ×2 (09:03→21:45)
[2017-08-19] MEDS: BENZONATATE 100 MG CAPSULE PO SCH ×3 (09:03→21:46)
[2017-08-19] MEDS: POTASSIUM CHLORIDE 10 MEQ TABLET PO SCH (09:06)
[2017-08-19] MEDS: clonazePAM 0.5 MG TABLET PO PRN ×2 (09:06→21:51)
[2017-08-19] MEDS: BUDESONIDE/FORMOTEROL 160-4.5 INHALER 6 GM INH SCH ×2 (09:07→21:46)
[2017-08-19] MEDS: CYCLOBENZAPRINE 10 MG TABLET PO PRN (10:25)
[2017-08-19 15:12] LABS: Procalcitonin, S 0.48 ng/mL (<=0.15)
[2017-08-19] MEDS ORDERED: traMADol 50 MG TABLET PO PRN (18:10)
[2017-08-20] MEDS: methylPREDNISolone SOD SUC 40 MG/1 ML VIAL IV SCH ×4 (00:52→23:13)
[2017-08-20] MEDS: MEROPENEM 1,000 MG in SYRINGE 1 EACH IV SCH ×3 (01:58→17:41)
[2017-08-20] MEDS: LEVOTHYROXINE 112 MCG TABLET PO SCH (06:23)
[2017-08-20 06:30] LABS: Basophils % 0.2 % (0.0-0.8); Hematocrit 33.3 VOL% (35.7-47.0); Hemoglobin 10.1 GM/DL (12.0-16.0); Immature Granulocytes Absolute 0.26 #; Lymphocytes # 0.4 10*3/uL (1.4-4.0); Lymphocytes % 3.2 % (21.3-54.2); Mean Corpuscular HGB Conc 30.3 GM/DL (32-36); Mean Corpuscular Hemoglobin 26 PG (27-34); Mean Corpuscular Volume 84.3 FL (87-102); Mean Platelet Volume 11.7 FL (9.6-12.0); Monocytes # 0.4 10*3/uL (0.11-0.8); Monocytes % 3.4 % (1.7-12.7); NRBC # 0.04 10*3/uL; Neutrophils # 11.6 10*3/uL (1.4-7.4); Neutrophils % 91.2 % (38.7-73.9); Platelet Count 250 T/CUMM (130-400); Red Blood Count 3.95 MC/CUMM (3.8-5.5); Red Cell Distribution Width 19.6 % (9.3-17.3); White Blood Count 12.7 T/CUMM (4-12)
[2017-08-20] MEDS: ALBUTEROL 2.5 MG/3 ML NEB RESP TX SCH ×5 (06:33→20:02)
[2017-08-20 06:54] LABS: Hypochromasia 1+; Lymphocytes 3 % (20-55); Platelet Estimate Adequate; Segmented Neutrophils 95 % (50-85); Total Cells Counted 100
[2017-08-20 06:55] LABS: Ovalocytes Slight
[2017-08-20 06:57] LABS: Microcytosis 1+
[2017-08-20 07:25] LABS: Calcium 8.4 MG/DL (8.5-10.1); Osmolality,Calculated 287.1 MOS/KG (273-304); Potassium 3.5 MMOL/L (3.5-5.1)
[2017-08-20] MEDS: DORNASE ALFA 2.5 MG/2.5 ML VIAL RESP TX SCH ×2 (07:50→19:54)
[2017-08-20] MEDS: ALBUTEROL/IPRATROPIUM 3 ML NEB RESP TX SCH ×4 (07:50→19:54)
[2017-08-20] MEDS: CLOPIDOGREL 75 MG TABLET PO SCH (08:13)
[2017-08-20] MEDS: BENZONATATE 100 MG CAPSULE PO SCH ×3 (08:13→20:42)
[2017-08-20] MEDS: ALBUTEROL 2 MG TABLET PO SCH ×3 (08:13→20:42)
[2017-08-20] MEDS: POTASSIUM CHLORIDE 10 MEQ TABLET PO SCH (08:13)
[2017-08-20] MEDS: ASPIRIN 325 MG TABLET PO SCH (08:13)
[2017-08-20] MEDS: FAMOTIDINE 20 MG TABLET PO SCH ×2 (08:13→20:43)
[2017-08-20] MEDS: clonazePAM 0.5 MG TABLET PO PRN ×3 (08:13→20:43)
[2017-08-20] MEDS: PANTOPRAZOLE 40 MG TABLET PO SCH ×2 (08:13→20:42)
[2017-08-20] MEDS: MONTELUKAST 10 MG TABLET PO SCH ×2 (08:13→20:43)
[2017-08-20] MEDS: SERTRALINE 100 MG TABLET PO SCH (08:13)
[2017-08-20] MEDS: SUCRALFATE 1 GM TABLET PO SCH ×4 (08:13→20:49)
[2017-08-20] MEDS: BUDESONIDE/FORMOTEROL 160-4.5 INHALER 6 GM INH SCH ×2 (08:14→20:42)
[2017-08-20] MEDS: ISOSORBIDE MONONITRATE 30 MG TABLET PO SCH (08:14)
[2017-08-20] MEDS: THEOPHYLLINE ER 300 MG TABLET PO SCH (08:14)
[2017-08-20] MEDS: FLUCONAZOLE INJ 100 MG in IV BAG 1 EACH IV SCH (13:19)
[2017-08-20] MEDS: ONDANSETRON 4 MG/2 ML VIAL IV PRN (13:23)
[2017-08-20] MEDS: CYCLOBENZAPRINE 10 MG TABLET PO PRN (16:27)
[2017-08-21] MEDS: ALBUTEROL 2.5 MG/3 ML NEB RESP TX SCH ×2 (00:23→11:51)
[2017-08-21] MEDS: MEROPENEM 1,000 MG in SYRINGE 1 EACH IV SCH ×3 (02:04→18:07)
[2017-08-21] MEDS: LEVOTHYROXINE 112 MCG TABLET PO SCH (06:10)
[2017-08-21] MEDS: ALBUTEROL/IPRATROPIUM 3 ML NEB RESP TX SCH ×4 (07:44→21:00)
[2017-08-21] MEDS: DORNASE ALFA 2.5 MG/2.5 ML VIAL RESP TX SCH ×2 (07:48→21:00)
[2017-08-21] MEDS: MONTELUKAST 10 MG TABLET PO SCH ×2 (09:22→21:06)
[2017-08-21] MEDS: FAMOTIDINE 20 MG TABLET PO SCH ×2 (09:22→21:06)
[2017-08-21] MEDS: MECLIZINE 25 MG TABLET PO PRN (09:22)
[2017-08-21] MEDS: ALBUTEROL 2 MG TABLET PO SCH ×3 (09:22→21:06)
[2017-08-21] MEDS: ASPIRIN 325 MG TABLET PO SCH (09:23)
[2017-08-21] MEDS: BENZONATATE 100 MG CAPSULE PO SCH ×3 (09:23→21:06)
[2017-08-21] MEDS: SUCRALFATE 1 GM TABLET PO SCH ×4 (09:23→21:06)
[2017-08-21] MEDS: CLOPIDOGREL 75 MG TABLET PO SCH (09:23)
[2017-08-21] MEDS: ISOSORBIDE MONONITRATE 30 MG TABLET PO SCH (09:23)
[2017-08-21] MEDS: SERTRALINE 100 MG TABLET PO SCH (09:23)
[2017-08-21] MEDS: POTASSIUM CHLORIDE 10 MEQ TABLET PO SCH (09:23)
[2017-08-21] MEDS: PANTOPRAZOLE 40 MG TABLET PO SCH ×2 (09:23→21:06)
[2017-08-21] MEDS: methylPREDNISolone SOD SUC 40 MG/1 ML VIAL IV SCH ×3 (09:24→21:06)
[2017-08-21] MEDS: BUDESONIDE/FORMOTEROL 160-4.5 INHALER 6 GM INH SCH ×2 (09:24→21:09)
[2017-08-21] MEDS: FLUCONAZOLE INJ 100 MG in IV BAG 1 EACH IV SCH (13:38)
[2017-08-21] MEDS: clonazePAM 0.5 MG TABLET PO PRN ×2 (13:38→21:06)
[2017-08-21] MEDS: CYCLOBENZAPRINE 10 MG TABLET PO PRN (15:37)
[2017-08-21] MEDS: THEOPHYLLINE ER (24 HR) 400 MG CAPSULE PO SCH (18:07)
[2017-08-22] MEDS: MEROPENEM 1,000 MG in SYRINGE 1 EACH IV SCH ×3 (01:17→17:12)
[2017-08-22] MEDS: LEVOTHYROXINE 112 MCG TABLET PO SCH (06:12)
[2017-08-22] MEDS: ALBUTEROL/IPRATROPIUM 3 ML NEB RESP TX SCH ×4 (06:59→20:05)
[2017-08-22] MEDS: DORNASE ALFA 2.5 MG/2.5 ML VIAL RESP TX SCH ×2 (06:59→20:05)
[2017-08-22] MEDS: CLOPIDOGREL 75 MG TABLET PO SCH (09:21)
[2017-08-22] MEDS: methylPREDNISolone SOD SUC 40 MG/1 ML VIAL IV SCH ×2 (09:21→21:56)
[2017-08-22] MEDS: BENZONATATE 100 MG CAPSULE PO SCH ×3 (09:22→20:58)
[2017-08-22] MEDS: FAMOTIDINE 20 MG TABLET PO SCH ×2 (09:22→20:37)
[2017-08-22] MEDS: MONTELUKAST 10 MG TABLET PO SCH ×2 (09:22→20:37)
[2017-08-22] MEDS: PANTOPRAZOLE 40 MG TABLET PO SCH ×2 (09:22→20:37)
[2017-08-22] MEDS: ASPIRIN 325 MG TABLET PO SCH (09:22)
[2017-08-22] MEDS: BUDESONIDE/FORMOTEROL 160-4.5 INHALER 6 GM INH SCH ×2 (09:22→21:55)
[2017-08-22] MEDS: SERTRALINE 100 MG TABLET PO SCH (09:22)
[2017-08-22] MEDS: ISOSORBIDE MONONITRATE 30 MG TABLET PO SCH (09:22)
[2017-08-22] MEDS: POTASSIUM CHLORIDE 10 MEQ TABLET PO SCH (09:22)
[2017-08-22] MEDS: SUCRALFATE 1 GM TABLET PO SCH ×4 (09:22→20:37)
[2017-08-22] MEDS: ALBUTEROL 2 MG TABLET PO SCH ×3 (09:25→20:37)
[2017-08-22] MEDS: clonazePAM 0.5 MG TABLET PO PRN ×2 (11:43→20:37)
[2017-08-22] MEDS: FLUCONAZOLE INJ 100 MG in IV BAG 1 EACH IV SCH (14:47)
[2017-08-22] MEDS: NYSTATIN 500,000 UNIT/5 ML UDCUP SWISH/SWAL SCH ×3 (14:47→20:58)
[2017-08-22] MEDS: ONDANSETRON 4 MG/2 ML VIAL IV PRN ×2 (15:45→20:42)
[2017-08-22] MEDS: THEOPHYLLINE ER (24 HR) 400 MG CAPSULE PO SCH (17:12)
[2017-08-23] MEDS: MEROPENEM 1,000 MG in SYRINGE 1 EACH IV SCH ×2 (02:03→10:19)
[2017-08-23] MEDS: LEVOTHYROXINE 112 MCG TABLET PO SCH (06:07)
[2017-08-23] MEDS: ALBUTEROL/IPRATROPIUM 3 ML NEB RESP TX SCH ×4 (07:33→19:25)
[2017-08-23] MEDS: DORNASE ALFA 2.5 MG/2.5 ML VIAL RESP TX SCH ×2 (07:33→19:25)
[2017-08-23] MEDS: NYSTATIN 500,000 UNIT/5 ML UDCUP SWISH/SWAL SCH ×5 (10:17→21:02)
[2017-08-23] MEDS: MONTELUKAST 10 MG TABLET PO SCH ×2 (10:17→21:03)
[2017-08-23] MEDS: PANTOPRAZOLE 40 MG TABLET PO SCH ×2 (10:18→21:03)
[2017-08-23] MEDS: ISOSORBIDE MONONITRATE 30 MG TABLET PO SCH (10:18)
[2017-08-23] MEDS: ALBUTEROL 2 MG TABLET PO SCH ×3 (10:18→21:05)
[2017-08-23] MEDS: SUCRALFATE 1 GM TABLET PO SCH ×4 (10:18→21:02)
[2017-08-23] MEDS: SERTRALINE 100 MG TABLET PO SCH (10:18)
[2017-08-23] MEDS: FAMOTIDINE 20 MG TABLET PO SCH ×2 (10:18→21:02)
[2017-08-23] MEDS: POTASSIUM CHLORIDE 10 MEQ TABLET PO SCH (10:18)
[2017-08-23] MEDS: CLOPIDOGREL 75 MG TABLET PO SCH (10:18)
[2017-08-23] MEDS: ASPIRIN 325 MG TABLET PO SCH (10:18)
[2017-08-23] MEDS: methylPREDNISolone SOD SUC 40 MG/1 ML VIAL IV SCH ×2 (10:19→21:03)
[2017-08-23] MEDS: BENZONATATE 100 MG CAPSULE PO SCH ×3 (10:19→21:02)
[2017-08-23] MEDS: BUDESONIDE/FORMOTEROL 160-4.5 INHALER 6 GM INH SCH ×2 (10:19→21:09)
[2017-08-23] MEDS ORDERED: HYDROCORTISONE 2.5% RECTAL CREAM 30 GM TUBE TOP ONE (10:52)
[2017-08-23] MEDS ORDERED: HYDROCORTISONE 25 MG SUPP RECTAL ONE (10:52)
[2017-08-23] MEDS ORDERED: HYDROCORTISONE 2.5% RECTAL CREAM 30 GM TUBE TOP PRN (10:52)
[2017-08-23] MEDS: ONDANSETRON 4 MG/2 ML VIAL IV PRN ×3 (11:17→21:03)
[2017-08-23] MEDS: HYDROCORTISONE 25 MG SUPP RECTAL SCH ×2 (14:56→21:02)
[2017-08-23] MEDS: CHOLESTYRAMINE 4 GM PACK PO SCH ×2 (14:57→21:02)
[2017-08-23] MEDS: THEOPHYLLINE ER (24 HR) 400 MG CAPSULE PO SCH (17:08)
[2017-08-23] MEDS: clonazePAM 0.5 MG TABLET PO PRN (17:30)
[2017-08-24] MEDS: LEVOTHYROXINE 112 MCG TABLET PO SCH (06:09)
[2017-08-24 06:30] LABS: Calcium 8.3 MG/DL (8.5-10.1); Osmolality,Calculated 288.1 MOS/KG (273-304); Potassium 3.5 MMOL/L (3.5-5.1)
[2017-08-24] MEDS: ALBUTEROL/IPRATROPIUM 3 ML NEB RESP TX SCH ×4 (08:08→19:11)
[2017-08-24] MEDS: DORNASE ALFA 2.5 MG/2.5 ML VIAL RESP TX SCH ×2 (08:12→19:12)
[2017-08-24] MEDS: ISOSORBIDE MONONITRATE 30 MG TABLET PO SCH (09:02)
[2017-08-24] MEDS: SUCRALFATE 1 GM TABLET PO SCH ×2 (09:02→11:51)
[2017-08-24] MEDS: POTASSIUM CHLORIDE 10 MEQ TABLET PO SCH (09:02)
[2017-08-24] MEDS: ALBUTEROL 2 MG TABLET PO SCH ×3 (09:02→20:28)
[2017-08-24] MEDS: FAMOTIDINE 20 MG TABLET PO SCH ×2 (09:03→20:28)
[2017-08-24] MEDS: CHOLESTYRAMINE 4 GM PACK PO SCH ×3 (09:03→20:27)
[2017-08-24] MEDS: BUDESONIDE/FORMOTEROL 160-4.5 INHALER 6 GM INH SCH ×2 (09:03→20:28)
[2017-08-24] MEDS: CLOPIDOGREL 75 MG TABLET PO SCH (09:03)
[2017-08-24] MEDS: methylPREDNISolone SOD SUC 40 MG/1 ML VIAL IV SCH ×2 (09:03→20:28)
[2017-08-24] MEDS: SERTRALINE 100 MG TABLET PO SCH (09:03)
[2017-08-24] MEDS: PANTOPRAZOLE 40 MG TABLET PO SCH ×2 (09:03→20:28)
[2017-08-24] MEDS: MONTELUKAST 10 MG TABLET PO SCH ×2 (09:03→20:28)
[2017-08-24] MEDS: ASPIRIN 325 MG TABLET PO SCH (09:03)
[2017-08-24] MEDS: HYDROCORTISONE 25 MG SUPP RECTAL SCH ×3 (09:04→20:27)
[2017-08-24] MEDS: NYSTATIN 500,000 UNIT/5 ML UDCUP SWISH/SWAL SCH ×4 (09:04→20:27)
[2017-08-24] MEDS: BENZONATATE 100 MG CAPSULE PO SCH ×3 (09:04→20:27)
[2017-08-24] MEDS: clonazePAM 0.5 MG TABLET PO PRN ×2 (09:07→20:36)
[2017-08-24] MEDS: POLYETHYLENE GLYCOL POWDER 17 GM PACK PO SCH (13:33)
[2017-08-24] MEDS: ERYTHROMYCIN BASE 250 MG TABLET PO SCH ×3 (13:36→20:28)
[2017-08-24] MEDS: ONDANSETRON 4 MG/2 ML VIAL IV PRN (13:38)
[2017-08-24] MEDS: THEOPHYLLINE ER (24 HR) 400 MG CAPSULE PO SCH (17:22)
[2017-08-25 05:44] LABS: Hematocrit 32.4 VOL% (35.7-47.0); Immature Granulocytes Absolute 0.19 #; Lymphocytes # 0.3 10*3/uL (1.4-4.0); Lymphocytes % 2.6 % (21.3-54.2); Mean Corpuscular HGB Conc 30.9 GM/DL (32-36); Mean Corpuscular Hemoglobin 26 PG (27-34); Mean Corpuscular Volume 83.3 FL (87-102); Monocytes # 0.6 10*3/uL (0.11-0.8); Monocytes % 6.2 % (1.7-12.7); NRBC # 0.03 10*3/uL; Neutrophils # 8.6 10*3/uL (1.4-7.4); Neutrophils % 89.2 % (38.7-73.9); Platelet Count 243 T/CUMM (130-400); Red Blood Count 3.89 MC/CUMM (3.8-5.5); Red Cell Distribution Width 19.1 % (9.3-17.3); White Blood Count 9.7 T/CUMM (4-12)
[2017-08-25 06:09] LABS: Hypochromasia 1+; Microcytosis 1+; Platelet Estimate Normal
[2017-08-25 06:16] LABS: Calcium 8.2 MG/DL (8.5-10.1); Potassium 3.5 MMOL/L (3.5-5.1)
[2017-08-25] MEDS: LEVOTHYROXINE 112 MCG TABLET PO SCH (06:30)
[2017-08-25] MEDS: DORNASE ALFA 2.5 MG/2.5 ML VIAL RESP TX SCH ×2 (06:57→21:12)
[2017-08-25] MEDS: ALBUTEROL/IPRATROPIUM 3 ML NEB RESP TX SCH ×4 (06:57→19:56)
[2017-08-25] MEDS: SERTRALINE 100 MG TABLET PO SCH (08:47)
[2017-08-25] MEDS: PANTOPRAZOLE 40 MG TABLET PO SCH ×2 (08:47→20:14)
[2017-08-25] MEDS: clonazePAM 0.5 MG TABLET PO PRN ×2 (08:47→20:13)
[2017-08-25] MEDS: MONTELUKAST 10 MG TABLET PO SCH ×2 (08:47→20:13)
[2017-08-25] MEDS: POTASSIUM CHLORIDE 10 MEQ TABLET PO SCH (08:47)
[2017-08-25] MEDS: ALBUTEROL 2 MG TABLET PO SCH ×3 (08:47→20:13)
[2017-08-25] MEDS: BUDESONIDE/FORMOTEROL 160-4.5 INHALER 6 GM INH SCH ×2 (08:48→20:14)
[2017-08-25] MEDS: ERYTHROMYCIN BASE 250 MG TABLET PO SCH ×4 (08:48→20:13)
[2017-08-25] MEDS: CYCLOBENZAPRINE 10 MG TABLET PO PRN (08:48)
[2017-08-25] MEDS: FAMOTIDINE 20 MG TABLET PO SCH ×2 (08:48→20:13)
[2017-08-25] MEDS: ISOSORBIDE MONONITRATE 30 MG TABLET PO SCH (08:48)
[2017-08-25] MEDS: CLOPIDOGREL 75 MG TABLET PO SCH (08:48)
[2017-08-25] MEDS: BENZONATATE 100 MG CAPSULE PO SCH ×3 (08:48→20:15)
[2017-08-25] MEDS: CHOLESTYRAMINE 4 GM PACK PO SCH ×3 (08:48→20:14)
[2017-08-25] MEDS: NYSTATIN 500,000 UNIT/5 ML UDCUP SWISH/SWAL SCH ×4 (08:49→20:14)
[2017-08-25] MEDS: ASPIRIN 325 MG TABLET PO SCH (08:49)
[2017-08-25] MEDS: POLYETHYLENE GLYCOL POWDER 17 GM PACK PO SCH (08:49)
[2017-08-25] MEDS: HYDROCORTISONE 25 MG SUPP RECTAL SCH ×3 (08:49→20:14)
[2017-08-25] MEDS: methylPREDNISolone SOD SUC 40 MG/1 ML VIAL IV SCH ×2 (08:49→20:13)
[2017-08-25] MEDS: THEOPHYLLINE ER (24 HR) 400 MG CAPSULE PO SCH (18:03)
[2017-08-26] MEDS: LEVOTHYROXINE 112 MCG TABLET PO SCH (06:19)
[2017-08-26] MEDS: ALBUTEROL/IPRATROPIUM 3 ML NEB RESP TX SCH ×4 (07:14→20:25)
[2017-08-26] MEDS: DORNASE ALFA 2.5 MG/2.5 ML VIAL RESP TX SCH ×2 (07:14→20:25)
[2017-08-26] MEDS: PANTOPRAZOLE 40 MG TABLET PO SCH ×2 (08:01→20:24)
[2017-08-26] MEDS: POTASSIUM CHLORIDE 10 MEQ TABLET PO SCH (08:01)
[2017-08-26] MEDS: CLOPIDOGREL 75 MG TABLET PO SCH (08:01)
[2017-08-26] MEDS: POLYETHYLENE GLYCOL POWDER 17 GM PACK PO SCH (08:01)
[2017-08-26] MEDS: NYSTATIN 500,000 UNIT/5 ML UDCUP SWISH/SWAL SCH ×4 (08:01→20:22)
[2017-08-26] MEDS: ISOSORBIDE MONONITRATE 30 MG TABLET PO SCH (08:01)
[2017-08-26] MEDS: FAMOTIDINE 20 MG TABLET PO SCH ×2 (08:01→20:24)
[2017-08-26] MEDS: HYDROCORTISONE 25 MG SUPP RECTAL SCH ×3 (08:01→20:22)
[2017-08-26] MEDS: ALBUTEROL 2 MG TABLET PO SCH ×3 (08:01→20:24)
[2017-08-26] MEDS: ASPIRIN 325 MG TABLET PO SCH (08:01)
[2017-08-26] MEDS: CHOLESTYRAMINE 4 GM PACK PO SCH ×3 (08:01→20:22)
[2017-08-26] MEDS: ERYTHROMYCIN BASE 250 MG TABLET PO SCH ×2 (08:01→10:04)
[2017-08-26] MEDS: BUDESONIDE/FORMOTEROL 160-4.5 INHALER 6 GM INH SCH ×2 (08:03→20:28)
[2017-08-26] MEDS: methylPREDNISolone SOD SUC 40 MG/1 ML VIAL IV SCH ×2 (08:03→20:26)
[2017-08-26] MEDS: BENZONATATE 100 MG CAPSULE PO SCH ×3 (08:03→20:28)
[2017-08-26] MEDS: MONTELUKAST 10 MG TABLET PO SCH ×2 (08:03→20:24)
[2017-08-26] MEDS: SERTRALINE 100 MG TABLET PO SCH (08:03)
[2017-08-26] MEDS ORDERED: LIDOCAINE 2% 5 ML VIAL ONE (08:16)
[2017-08-26] MEDS ORDERED: PROPOFOL 200 MG/20 ML VIAL IV ONE (08:16)
[2017-08-26] MEDS ORDERED: methylPREDNISolone SOD SUC 40 MG/1 ML VIAL ONE (08:16)
[2017-08-26] MEDS ORDERED: methylPREDNISolone SOD SUC 125 MG/2 ML VIAL ONE (08:19)
[2017-08-26] MEDS: FLUCONAZOLE 100 MG TABLET PO SCH (10:04)
[2017-08-26] MEDS: THEOPHYLLINE ER (24 HR) 400 MG CAPSULE PO SCH (16:29)
[2017-08-26] MEDS: clonazePAM 0.5 MG TABLET PO PRN (20:24)
[2017-08-27] MEDS: LEVOTHYROXINE 112 MCG TABLET PO SCH (06:04)
[2017-08-27] MEDS: DORNASE ALFA 2.5 MG/2.5 ML VIAL RESP TX SCH ×2 (07:35→20:10)
[2017-08-27] MEDS: ALBUTEROL/IPRATROPIUM 3 ML NEB RESP TX SCH ×4 (07:35→20:02)
[2017-08-27] MEDS: CHOLESTYRAMINE 4 GM PACK PO SCH ×3 (08:07→20:56)
[2017-08-27] MEDS: NYSTATIN 500,000 UNIT/5 ML UDCUP SWISH/SWAL SCH ×4 (08:07→20:55)
[2017-08-27] MEDS: POLYETHYLENE GLYCOL POWDER 17 GM PACK PO SCH (08:07)
[2017-08-27] MEDS: BENZONATATE 100 MG CAPSULE PO SCH ×3 (08:07→20:56)
[2017-08-27] MEDS: HYDROCORTISONE 25 MG SUPP RECTAL SCH ×3 (08:07→20:56)
[2017-08-27] MEDS: CYCLOBENZAPRINE 10 MG TABLET PO PRN (09:01)
[2017-08-27] MEDS: POTASSIUM CHLORIDE 10 MEQ TABLET PO SCH (09:01)
[2017-08-27] MEDS: ALBUTEROL 2 MG TABLET PO SCH ×3 (09:01→20:56)
[2017-08-27] MEDS: MONTELUKAST 10 MG TABLET PO SCH ×2 (09:01→20:56)
[2017-08-27] MEDS: FLUCONAZOLE 100 MG TABLET PO SCH (09:01)
[2017-08-27] MEDS: clonazePAM 0.5 MG TABLET PO PRN ×2 (09:01→17:02)
[2017-08-27] MEDS: ASPIRIN 325 MG TABLET PO SCH (09:01)
[2017-08-27] MEDS: ERYTHROMYCIN BASE 250 MG TABLET PO SCH (09:01)
[2017-08-27] MEDS: CLOPIDOGREL 75 MG TABLET PO SCH (09:02)
[2017-08-27] MEDS: SERTRALINE 100 MG TABLET PO SCH (09:02)
[2017-08-27] MEDS: FAMOTIDINE 20 MG TABLET PO SCH ×2 (09:02→20:56)
[2017-08-27] MEDS: ISOSORBIDE MONONITRATE 30 MG TABLET PO SCH (09:02)
[2017-08-27] MEDS: BUDESONIDE/FORMOTEROL 160-4.5 INHALER 6 GM INH SCH ×2 (09:02→20:57)
[2017-08-27] MEDS: PANTOPRAZOLE 40 MG TABLET PO SCH ×2 (09:02→20:56)
[2017-08-27] MEDS: methylPREDNISolone SOD SUC 40 MG/1 ML VIAL IV SCH ×2 (09:03→20:56)
[2017-08-27] MEDS: VANCOMYCIN 50 MG/ML 60 ML/BOTTLE PO SCH ×3 (17:01→21:00)
[2017-08-28] MEDS: VANCOMYCIN 50 MG/ML 60 ML/BOTTLE PO SCH ×4 (04:55→23:13)
[2017-08-28] MEDS: LEVOTHYROXINE 112 MCG TABLET PO SCH ×2 (04:55→19:34)
[2017-08-28] MEDS: ALBUTEROL/IPRATROPIUM 3 ML NEB RESP TX SCH ×4 (07:14→20:23)
[2017-08-28] MEDS: DORNASE ALFA 2.5 MG/2.5 ML VIAL RESP TX SCH ×2 (07:14→20:23)
[2017-08-28] MEDS: CYCLOBENZAPRINE 10 MG TABLET PO PRN (09:21)
[2017-08-28] MEDS: CLOPIDOGREL 75 MG TABLET PO SCH (09:21)
[2017-08-28] MEDS: ASPIRIN 325 MG TABLET PO SCH (09:21)
[2017-08-28] MEDS: ALBUTEROL 2 MG TABLET PO SCH ×3 (09:21→20:46)
[2017-08-28] MEDS: HYDROCORTISONE 25 MG SUPP RECTAL SCH ×3 (09:24→20:47)
[2017-08-28] MEDS: FLUCONAZOLE 100 MG TABLET PO SCH (09:24)
[2017-08-28] MEDS: ISOSORBIDE MONONITRATE 30 MG TABLET PO SCH (09:25)
[2017-08-28] MEDS: ERYTHROMYCIN BASE 250 MG TABLET PO SCH (09:25)
[2017-08-28] MEDS: POLYETHYLENE GLYCOL POWDER 17 GM PACK PO SCH (09:26)
[2017-08-28] MEDS: FAMOTIDINE 20 MG TABLET PO SCH ×2 (09:26→20:46)
[2017-08-28] MEDS: methylPREDNISolone SOD SUC 40 MG/1 ML VIAL IV SCH ×2 (09:27→20:45)
[2017-08-28] MEDS: CHOLESTYRAMINE 4 GM PACK PO SCH ×3 (09:27→20:47)
[2017-08-28] MEDS: BENZONATATE 100 MG CAPSULE PO SCH ×3 (09:28→20:46)
[2017-08-28] MEDS: NYSTATIN 500,000 UNIT/5 ML UDCUP SWISH/SWAL SCH ×4 (09:35→20:46)
[2017-08-28] MEDS: PANTOPRAZOLE 40 MG TABLET PO SCH ×2 (09:36→20:46)
[2017-08-28] MEDS: BUDESONIDE/FORMOTEROL 160-4.5 INHALER 6 GM INH SCH ×2 (09:36→20:48)
[2017-08-28] MEDS: MONTELUKAST 10 MG TABLET PO SCH ×2 (09:47→20:46)
[2017-08-28] MEDS: SERTRALINE 100 MG TABLET PO SCH (09:47)
[2017-08-28] MEDS: POTASSIUM CHLORIDE 10 MEQ TABLET PO SCH (09:47)
[2017-08-28] MEDS: clonazePAM 0.5 MG TABLET PO PRN (16:35)
[2017-08-29] MEDS: LEVOTHYROXINE 112 MCG TABLET PO SCH (05:57)
[2017-08-29] MEDS: VANCOMYCIN 50 MG/ML 60 ML/BOTTLE PO SCH ×4 (05:57→21:25)
[2017-08-29] MEDS: ALBUTEROL/IPRATROPIUM 3 ML NEB RESP TX SCH ×4 (07:34→19:58)
[2017-08-29] MEDS: DORNASE ALFA 2.5 MG/2.5 ML VIAL RESP TX SCH ×2 (07:39→19:58)
[2017-08-29] MEDS: PANTOPRAZOLE 40 MG TABLET PO SCH ×2 (09:22→21:24)
[2017-08-29] MEDS: ASPIRIN 325 MG TABLET PO SCH (09:22)
[2017-08-29] MEDS: MECLIZINE 25 MG TABLET PO PRN (09:22)
[2017-08-29] MEDS: MONTELUKAST 10 MG TABLET PO SCH ×2 (09:23→21:24)
[2017-08-29] MEDS: ALBUTEROL 2 MG TABLET PO SCH ×3 (09:23→21:24)
[2017-08-29] MEDS: SERTRALINE 100 MG TABLET PO SCH (09:23)
[2017-08-29] MEDS: ISOSORBIDE MONONITRATE 30 MG TABLET PO SCH (09:23)
[2017-08-29] MEDS: POTASSIUM CHLORIDE 10 MEQ TABLET PO SCH (09:23)
[2017-08-29] MEDS: NYSTATIN 500,000 UNIT/5 ML UDCUP SWISH/SWAL SCH ×3 (09:24→21:14)
[2017-08-29] MEDS: ERYTHROMYCIN BASE 250 MG TABLET PO SCH (09:24)
[2017-08-29] MEDS: FAMOTIDINE 20 MG TABLET PO SCH ×2 (09:24→21:24)
[2017-08-29] MEDS: FLUCONAZOLE 100 MG TABLET PO SCH (09:24)
[2017-08-29] MEDS: POLYETHYLENE GLYCOL POWDER 17 GM PACK PO SCH (09:25)
[2017-08-29] MEDS: CHOLESTYRAMINE 4 GM PACK PO SCH ×3 (09:25→21:25)
[2017-08-29] MEDS: methylPREDNISolone SOD SUC 40 MG/1 ML VIAL IV SCH ×2 (09:27→21:24)
[2017-08-29] MEDS: BENZONATATE 100 MG CAPSULE PO SCH ×3 (09:33→21:24)
[2017-08-29] MEDS: BUDESONIDE/FORMOTEROL 160-4.5 INHALER 6 GM INH SCH ×2 (09:33→21:25)
[2017-08-29] MEDS: CLOPIDOGREL 75 MG TABLET PO SCH (09:39)
[2017-08-29] MEDS: clonazePAM 0.5 MG TABLET PO PRN (14:45)
[2017-08-29] MEDS: HYDROCORTISONE 25 MG SUPP RECTAL SCH ×2 (21:13→21:14)
[2017-08-30] MEDS: VANCOMYCIN 50 MG/ML 60 ML/BOTTLE PO SCH ×4 (06:00→21:15)
[2017-08-30] MEDS: LEVOTHYROXINE 112 MCG TABLET PO SCH (06:26)
[2017-08-30] MEDS: ALBUTEROL/IPRATROPIUM 3 ML NEB RESP TX SCH ×4 (07:37→19:18)
[2017-08-30] MEDS: BENZONATATE 100 MG CAPSULE PO SCH ×3 (09:30→21:10)
[2017-08-30] MEDS: CHOLESTYRAMINE 4 GM PACK PO SCH ×3 (09:30→21:10)
[2017-08-30] MEDS: methylPREDNISolone SOD SUC 40 MG/1 ML VIAL IV SCH ×2 (09:30→21:12)
[2017-08-30] MEDS: PANTOPRAZOLE 40 MG TABLET PO SCH ×2 (09:31→21:10)
[2017-08-30] MEDS: FAMOTIDINE 20 MG TABLET PO SCH ×2 (09:31→21:10)
[2017-08-30] MEDS: ERYTHROMYCIN BASE 250 MG TABLET PO SCH (09:31)
[2017-08-30] MEDS: FLUCONAZOLE 100 MG TABLET PO SCH (09:31)
[2017-08-30] MEDS: POTASSIUM CHLORIDE 10 MEQ TABLET PO SCH (09:31)
[2017-08-30] MEDS: SERTRALINE 100 MG TABLET PO SCH (09:31)
[2017-08-30] MEDS: ASPIRIN 325 MG TABLET PO SCH (09:31)
[2017-08-30] MEDS: CLOPIDOGREL 75 MG TABLET PO SCH (09:31)
[2017-08-30] MEDS: HYDROCORTISONE 25 MG SUPP RECTAL SCH ×3 (09:31→21:09)
[2017-08-30] MEDS: NYSTATIN 500,000 UNIT/5 ML UDCUP SWISH/SWAL SCH ×4 (09:31→21:09)
[2017-08-30] MEDS: MONTELUKAST 10 MG TABLET PO SCH ×2 (09:31→21:10)
[2017-08-30] MEDS: ALBUTEROL 2 MG TABLET PO SCH ×3 (09:31→21:10)
[2017-08-30] MEDS: ISOSORBIDE MONONITRATE 30 MG TABLET PO SCH (09:31)
[2017-08-30] MEDS: BUDESONIDE/FORMOTEROL 160-4.5 INHALER 6 GM INH SCH ×2 (09:32→21:19)
[2017-08-30] MEDS: POLYETHYLENE GLYCOL POWDER 17 GM PACK PO SCH (09:32)
[2017-08-30] MEDS: DORNASE ALFA 2.5 MG/2.5 ML VIAL RESP TX SCH ×2 (10:40→19:23)
[2017-08-30] MEDS: METOCLOPRAMIDE 10 MG/10 ML UDCUP PO SCH (16:26)
[2017-08-31] MEDS: VANCOMYCIN 50 MG/ML 60 ML/BOTTLE PO SCH ×3 (05:40→09:43)
[2017-08-31] MEDS: LEVOTHYROXINE 112 MCG TABLET PO SCH (05:40)
[2017-08-31] MEDS: DORNASE ALFA 2.5 MG/2.5 ML VIAL RESP TX SCH (07:44)
[2017-08-31] MEDS: ALBUTEROL/IPRATROPIUM 3 ML NEB RESP TX SCH ×2 (07:44→12:03)
[2017-08-31] MEDS: ASPIRIN 325 MG TABLET PO SCH (08:44)
[2017-08-31] MEDS: BENZONATATE 100 MG CAPSULE PO SCH ×2 (08:44→14:58)
[2017-08-31] MEDS: MONTELUKAST 10 MG TABLET PO SCH (08:44)
[2017-08-31] MEDS: CLOPIDOGREL 75 MG TABLET PO SCH (08:44)
[2017-08-31] MEDS: ALBUTEROL 2 MG TABLET PO SCH ×2 (08:44→14:58)
[2017-08-31] MEDS: SERTRALINE 100 MG TABLET PO SCH (08:45)
[2017-08-31] MEDS: ISOSORBIDE MONONITRATE 30 MG TABLET PO SCH (08:45)
[2017-08-31] MEDS: POTASSIUM CHLORIDE 10 MEQ TABLET PO SCH (08:45)
[2017-08-31] MEDS: PANTOPRAZOLE 40 MG TABLET PO SCH (08:45)
[2017-08-31] MEDS: METOCLOPRAMIDE 10 MG/10 ML UDCUP PO SCH ×2 (08:45→12:35)
[2017-08-31] MEDS: FLUCONAZOLE 100 MG TABLET PO SCH (08:45)
[2017-08-31] MEDS: FAMOTIDINE 20 MG TABLET PO SCH (08:45)
[2017-08-31] MEDS: NYSTATIN 500,000 UNIT/5 ML UDCUP SWISH/SWAL SCH ×2 (08:45→14:58)
[2017-08-31] MEDS: methylPREDNISolone SOD SUC 40 MG/1 ML VIAL IV SCH (08:46)
[2017-08-31] MEDS: HYDROCORTISONE 25 MG SUPP RECTAL SCH ×2 (09:16→14:58)
[2017-08-31] MEDS: BUDESONIDE/FORMOTEROL 160-4.5 INHALER 6 GM INH SCH (09:16)
[2017-08-31] MEDS: CHOLESTYRAMINE 4 GM PACK PO SCH ×2 (09:16→14:58)
[2017-08-31] MEDS: POLYETHYLENE GLYCOL POWDER 17 GM PACK PO SCH (09:16)
[2017-08-31 13:16] VITALS: BP 134/63
== END 2017-08-31 15:23 | disposition home health service (06) | DRG 191 ==
LOC: N.TELEN 16:06 → N.5E 08-18 14:08
PROVIDERS: ADMIT Internal Medicine Pulmonary Disease; ATTEND Internal Medicine Pulmonary Disease

== ENCOUNTER 2018-07-18 13:45 | Inpatient (IN) ==
[2018-07-18] MEDS ORDERED: SODIUM CHLORIDE 0.9% 1,000 ML IV STA (14:21)
[2018-07-18 14:34] LABS: Basophils # 0.1 10*3/uL (0.0-0.2); Basophils % 0.4 % (0.0-0.8); Eosinophils # 0.3 10*3/uL (0.0-0.87); Eosinophils % 1.9 % (0.00-10.9); Hematocrit 37.5 VOL% (35.7-47.0); Hemoglobin 11.7 GM/DL (12.0-16.0); Immature Granulocytes % 0.7 %; Immature Granulocytes Absolute 0.11 #; Mean Corpuscular HGB Conc 31.2 GM/DL (32-36); Mean Corpuscular Hemoglobin 30 PG (27-34); Mean Corpuscular Volume 96.6 FL (87-102); Mean Platelet Volume 11.3 FL (9.6-12.0); Monocytes # 0.8 10*3/uL (0.11-0.8); Monocytes % 4.6 % (1.7-12.7); Neutrophils # 14.4 10*3/uL (1.4-7.4); Neutrophils % 86.4 % (38.7-73.9); Platelet Count 180 T/CUMM (130-400); Red Blood Count 3.88 MC/CUMM (3.8-5.5); White Blood Count 16.6 T/CUMM (4-12)
[2018-07-18 14:54] LABS: Ammonia 20 UMOL/L (11-32)
[2018-07-18 15:00] LABS: Alanine Aminotransferase < 9 U/L (13-56); Albumin 3.3 G/DL (3.4-5.0); Alkaline Phosphatase 74 U/L (45-117); Aspartate Amino Transferase 15 U/L (0-37); Blood Urea Nitrogen 12 MG/DL (7-18); Calcium 8.5 MG/DL (8.5-10.1); Glucose 80 MG/DL (74-106); Potassium 3.3 MMOL/L (3.5-5.1); Sodium 143 MMOL/L (136-145); Total Protein 6.1 G/DL (6.4-8.3)
[2018-07-18 15:14] LABS: Apearance,Urine CLOUDY (Clear); Bilirubin,Urine Negative (Negative); Blood, Urine Small mg/dL (Negative); Glucose,Urine (UA) Negative (Negative); Ketones,Urine 5 mg/dL (Negative); Mucus,Urine Few /LPF (Occasional); Nitrite,Urine Negative (Negative); Protein,Urine 100 MG/DL; RBC,Urine 65 /HPF (0-4); Urine Color Amber (Yellow); Urine Specific Gravity 1.016 (1.001-1.035); Urine Urobilinogen < 2.0 EU/DL (0.2-1.0); WBC,Urine 2046 /HPF (0-6)
[2018-07-18] MEDS ORDERED: LEVOFLOXACIN INJ 100 ML IV ONE (16:39)
[2018-07-18] MEDS ORDERED: ONDANSETRON 4 MG/2 ML VIAL IV PRN (17:29)
[2018-07-18] MEDS ORDERED: MAGNESIUM SULF RIDER 2 GM in PREMIX 1 EACH IV PRN (17:30)
[2018-07-18] MEDS ORDERED: MAGNESIUM SULF RIDER 4 GM in PREMIX 1 EACH IV PRN (17:30)
[2018-07-18] MEDS ORDERED: ALUMINUM/MAGNES/SIMETH MAX STR 30 ML UDCUP PO PRN (17:31)
[2018-07-18] MEDS ORDERED: NITROGLYCERIN SL 0.4 MG TABLET SL PRN (17:33)
[2018-07-18] MEDS ORDERED: ALBUTEROL/IPRATROPIUM 3 ML NEB RESP TX PRN (17:33)
[2018-07-18] MEDS ORDERED: ALBUTEROL 2.5 MG/3 ML NEB RESP TX PRN (17:33)
[2018-07-18] MEDS ORDERED: POLYETHYLENE GLYCOL POWDER 17 GM PACK PO PRN (17:33)
[2018-07-18] MEDS ORDERED: ALUMINUM/MAGNES/SIMETH MAX STR 30 ML UDCUP PO ONE (17:45)
[2018-07-18] MEDS ORDERED: LEVOFLOXACIN INJ 500 MG in PREMIX 1 EACH IV STA (18:55)
[2018-07-18] MEDS: PANTOPRAZOLE 40 MG TABLET PO SCH (21:56)
[2018-07-18] MEDS: CARBIDOPA/LEVODOPA CR 25-100 MG TABLET PO SCH (21:56)
[2018-07-18] MEDS: MONTELUKAST 10 MG TABLET PO SCH (21:56)
[2018-07-18] MEDS: POTASSIUM CHLORIDE 20 MEQ TABLET PO PRN (21:56)
[2018-07-18] MEDS: FAMOTIDINE 20 MG TABLET PO SCH (21:56)
[2018-07-18] MEDS: BUDESONIDE/FORMOTEROL 160-4.5 INHALER 6 GM INH SCH (22:11)
[2018-07-19] MEDS: POTASSIUM CHLORIDE 20 MEQ TABLET PO PRN ×2 (00:10→03:46)
[2018-07-19] MEDS: ACETAMINOPHEN 325 MG TABLET PO PRN ×3 (00:14→18:26)
[2018-07-19 06:04] LABS: Calcium 8.1 MG/DL (8.5-10.1); Osmolality,Calculated 277.5 MOS/KG (273-304); Potassium 4.4 MMOL/L (3.5-5.1); Risk Ratio 2.46; Thyroid Stimulating Hormone 0.225 uIU/ml (0.358-3.74)
[2018-07-19 06:23] LABS: Basophils # 0.1 10*3/uL (0.0-0.2); Basophils % 0.3 % (0.0-0.8); Eosinophils # 0.4 10*3/uL (0.0-0.87); Eosinophils % 2.3 % (0.00-10.9); Hematocrit 37.1 VOL% (35.7-47.0); Immature Granulocytes % 0.6 %; Immature Granulocytes Absolute 0.11 #; Lymphocytes # 1.6 10*3/uL (1.4-4.0); Lymphocytes % 9.4 % (21.3-54.2); Mean Corpuscular HGB Conc 29.6 GM/DL (32-36); Mean Corpuscular Hemoglobin 29 PG (27-34); Mean Corpuscular Volume 98.7 FL (87-102); Mean Platelet Volume 12.1 FL (9.6-12.0); Monocytes # 1.6 10*3/uL (0.11-0.8); Monocytes % 9.1 % (1.7-12.7); Neutrophils # 13.6 10*3/uL (1.4-7.4); Neutrophils % 78.3 % (38.7-73.9); Platelet Count 161 T/CUMM (130-400); Red Blood Count 3.76 MC/CUMM (3.8-5.5); Red Cell Distribution Width 14.5 % (9.3-17.3); White Blood Count 17.3 T/CUMM (4-12)
[2018-07-19] MEDS: LEVOTHYROXINE 112 MCG TABLET PO SCH (06:29)
[2018-07-19] MEDS ORDERED: PIMOZIDE 1 MG PO SCH (09:00)
[2018-07-19] MEDS ORDERED: cefTRIAXone 1,000 MG VIAL IM SCH (09:00)
[2018-07-19] MEDS: SERTRALINE 25 MG TABLET PO SCH (09:12)
[2018-07-19] MEDS: FAMOTIDINE 20 MG TABLET PO SCH ×2 (09:13→20:50)
[2018-07-19] MEDS: FERROUS SULFATE 325 MG TABLET PO SCH (09:13)
[2018-07-19] MEDS: ISOSORBIDE MONONITRATE 30 MG TABLET PO SCH (09:13)
[2018-07-19] MEDS: IRON (CARBONYL)/VIT C/B12/FA TABLET PO SCH (09:13)
[2018-07-19] MEDS: CARBIDOPA/LEVODOPA CR 25-100 MG TABLET PO SCH ×4 (09:13→20:58)
[2018-07-19] MEDS: PANTOPRAZOLE 40 MG TABLET PO SCH ×3 (09:13→20:50)
[2018-07-19] MEDS: CLOPIDOGREL 75 MG TABLET PO SCH (09:13)
[2018-07-19] MEDS: BUDESONIDE/FORMOTEROL 160-4.5 INHALER 6 GM INH SCH ×2 (09:14→20:58)
[2018-07-19] MEDS: ASPIRIN EC 81 MG TABLET PO SCH (09:17)
[2018-07-19] MEDS: cefTRIAXone 1,000 MG in SYRINGE 1 EACH IV SCH (10:19)
[2018-07-19] MEDS: PIMOZIDE 1 MG PO SCH (15:24)
[2018-07-19] MEDS: MONTELUKAST 10 MG TABLET PO SCH (20:56)
[2018-07-20 05:09] LABS: Basophils % 0.3 % (0.0-0.8); Eosinophils # 0.2 10*3/uL (0.0-0.87); Eosinophils % 2.2 % (0.00-10.9); Hematocrit 35.2 VOL% (35.7-47.0); Hemoglobin 10.6 GM/DL (12.0-16.0); Immature Granulocytes % 0.5 %; Immature Granulocytes Absolute 0.05 #; Lymphocytes # 1.3 10*3/uL (1.4-4.0); Lymphocytes % 12.1 % (21.3-54.2); Mean Corpuscular HGB Conc 30.1 GM/DL (32-36); Mean Corpuscular Hemoglobin 29 PG (27-34); Mean Corpuscular Volume 97.8 FL (87-102); Mean Platelet Volume 12.1 FL (9.6-12.0); Monocytes # 0.9 10*3/uL (0.11-0.8); Monocytes % 8.6 % (1.7-12.7); Neutrophils % 76.3 % (38.7-73.9); Platelet Count 148 T/CUMM (130-400); Red Cell Distribution Width 14.2 % (9.3-17.3); White Blood Count 10.5 T/CUMM (4-12)
[2018-07-20 05:40] LABS: Calcium 8.1 MG/DL (8.5-10.1); Osmolality,Calculated 280.3 MOS/KG (273-304)
[2018-07-20] MEDS: LEVOTHYROXINE 112 MCG TABLET PO SCH (06:17)
[2018-07-20] MEDS: CLOPIDOGREL 75 MG TABLET PO SCH (08:31)
[2018-07-20] MEDS: CARBIDOPA/LEVODOPA CR 25-100 MG TABLET PO SCH ×4 (08:31→21:00)
[2018-07-20] MEDS: cefTRIAXone 1,000 MG in SYRINGE 1 EACH IV SCH (08:31)
[2018-07-20] MEDS: FAMOTIDINE 20 MG TABLET PO SCH ×2 (08:31→21:00)
[2018-07-20] MEDS: ASPIRIN EC 81 MG TABLET PO SCH (08:32)
[2018-07-20] MEDS: PIMOZIDE 1 MG PO SCH (08:32)
[2018-07-20] MEDS: FERROUS SULFATE 325 MG TABLET PO SCH (08:32)
[2018-07-20] MEDS: SERTRALINE 25 MG TABLET PO SCH (08:32)
[2018-07-20] MEDS: PANTOPRAZOLE 40 MG TABLET PO SCH ×3 (08:32→21:01)
[2018-07-20] MEDS: BUDESONIDE/FORMOTEROL 160-4.5 INHALER 6 GM INH SCH ×2 (08:32→21:03)
[2018-07-20] MEDS: IRON (CARBONYL)/VIT C/B12/FA TABLET PO SCH (08:32)
[2018-07-20] MEDS: ISOSORBIDE MONONITRATE 30 MG TABLET PO SCH (08:32)
[2018-07-20] MEDS: MONTELUKAST 10 MG TABLET PO SCH (18:07)
[2018-07-20] MEDS: ACETAMINOPHEN 325 MG TABLET PO PRN (21:01)
[2018-07-21 05:00] LABS: Basophils % 0.6 % (0.0-0.8); Eosinophils # 0.3 10*3/uL (0.0-0.87); Eosinophils % 3.9 % (0.00-10.9); Hematocrit 35.6 VOL% (35.7-47.0); Hemoglobin 10.6 GM/DL (12.0-16.0); Immature Granulocytes % 0.4 %; Immature Granulocytes Absolute 0.03 #; Lymphocytes # 1.2 10*3/uL (1.4-4.0); Lymphocytes % 17.2 % (21.3-54.2); Mean Corpuscular HGB Conc 29.8 GM/DL (32-36); Mean Corpuscular Hemoglobin 29 PG (27-34); Mean Corpuscular Volume 98.3 FL (87-102); Mean Platelet Volume 11.6 FL (9.6-12.0); Monocytes # 0.7 10*3/uL (0.11-0.8); Monocytes % 9.3 % (1.7-12.7); Neutrophils % 68.6 % (38.7-73.9); Platelet Count 149 T/CUMM (130-400); Red Blood Count 3.62 MC/CUMM (3.8-5.5); Red Cell Distribution Width 13.9 % (9.3-17.3); White Blood Count 7.2 T/CUMM (4-12)
[2018-07-21 05:15] LABS: Calcium 8.6 MG/DL (8.5-10.1); Osmolality,Calculated 277.3 MOS/KG (273-304); Potassium 4.2 MMOL/L (3.5-5.1)
[2018-07-21] MEDS: LEVOTHYROXINE 112 MCG TABLET PO SCH (06:30)
[2018-07-21] MEDS: FAMOTIDINE 20 MG TABLET PO SCH (08:56)
[2018-07-21] MEDS: FERROUS SULFATE 325 MG TABLET PO SCH (08:56)
[2018-07-21] MEDS: CARBIDOPA/LEVODOPA CR 25-100 MG TABLET PO SCH ×2 (08:56→14:49)
[2018-07-21] MEDS: ISOSORBIDE MONONITRATE 30 MG TABLET PO SCH (08:56)
[2018-07-21] MEDS: ASPIRIN EC 81 MG TABLET PO SCH (08:57)
[2018-07-21] MEDS: IRON (CARBONYL)/VIT C/B12/FA TABLET PO SCH (08:57)
[2018-07-21] MEDS: PIMOZIDE 1 MG PO SCH (08:57)
[2018-07-21] MEDS: SERTRALINE 25 MG TABLET PO SCH (08:57)
[2018-07-21] MEDS: PANTOPRAZOLE 40 MG TABLET PO SCH (08:57)
[2018-07-21] MEDS: CLOPIDOGREL 75 MG TABLET PO SCH (08:57)
[2018-07-21] MEDS: BUDESONIDE/FORMOTEROL 160-4.5 INHALER 6 GM INH SCH (08:58)
[2018-07-21] MEDS: cefTRIAXone 1,000 MG in SYRINGE 1 EACH IV SCH (08:58)
[2018-07-21] MEDS: ACETAMINOPHEN 325 MG TABLET PO PRN (09:06)
[2018-07-21 15:25] VITALS: BP 113/63
== END 2018-07-21 16:32 | disposition home health service (06) | DRG 312 ==
LOC: EDUNIT# → EDBD → N.ED 13:45 → N.EDINP 17:29 → N.5E 19:21
PROVIDERS: ADMIT Internal Medicine; ATTEND Internal Medicine

== ENCOUNTER 2018-11-24 09:54 | Inpatient (IN) ==
[2018-11-24] MEDS ORDERED: SODIUM CHLORIDE 0.9% 500 ML IV STA (10:21)
[2018-11-24] MEDS ORDERED: DILTIAZEM 50 MG/10 ML VIAL IV STA (10:21)
[2018-11-24] MEDS ORDERED: dilTIAZem Drip 125 MG/125 ML PREMIX IV SCH (10:30)
[2018-11-24 10:38] LABS: Basophils # 0.1 10*3/uL (0.0-0.2); Basophils % 0.3 % (0.0-0.8); Eosinophils # 0.2 10*3/uL (0.0-0.87); Eosinophils % 0.7 % (0.00-10.9); Hematocrit 40.3 VOL% (35.7-47.0); Hemoglobin 12.4 GM/DL (12.0-16.0); Immature Granulocytes % 0.7 %; Immature Granulocytes Absolute 0.19 #; Lymphocytes # 1.9 10*3/uL (1.4-4.0); Lymphocytes % 7.4 % (21.3-54.2); Mean Corpuscular HGB Conc 30.8 GM/DL (32-36); Mean Corpuscular Hemoglobin 30 PG (27-34); Mean Corpuscular Volume 97.3 FL (87-102); Mean Platelet Volume 11.7 FL (9.6-12.0); Monocytes # 1.2 10*3/uL (0.11-0.8); Monocytes % 4.5 % (1.7-12.7); Neutrophils # 22.4 10*3/uL (1.4-7.4); Neutrophils % 86.4 % (38.7-73.9); Platelet Count 210 T/CUMM (130-400); Red Blood Count 4.14 MC/CUMM (3.8-5.5); Red Cell Distribution Width 17.1 % (9.3-17.3); White Blood Count 25.9 T/CUMM (4-12)
[2018-11-24 10:46] LABS: PT Patient Result 11.3 SECS; Partial Thromboplastin Time 21.5 SECS (0-40)
[2018-11-24 10:57] LABS: Anisocytosis 1+; Band Neutrophils 29 % (0-10); Eosinophils 1 % (0-10); Lymphocytes 5 % (20-55); Platelet Estimate Normal; Segmented Neutrophils 64 % (50-85); Total Cells Counted 100
[2018-11-24 11:03] LABS: Albumin 2.9 G/DL (3.4-5.0); Bilirubin,Total 1.2 MG/DL (0.2-1.0); Calcium 7.8 MG/DL (8.5-10.1); Osmolality,Calculated 278.5 MOS/KG (273-304); Potassium 3.7 MMOL/L (3.5-5.1); Total Protein 5.6 G/DL (6.4-8.3)
[2018-11-24] MEDS ORDERED: SODIUM CHLORIDE 0.9% 1,000 ML IV STA ×2 (11:10→11:11)
[2018-11-24] MEDS ORDERED: PIPERACILLIN/TAZOBACTAM 3,375 MG in SODIUM CHLORIDE 0.9% 100 ML IV STA (11:36)
[2018-11-24] MEDS ORDERED: guaiFENesin/DM ER 600-30 MG TABLET PO PRN (12:58)
[2018-11-24] MEDS ORDERED: ALBUTEROL 2.5 MG/3 ML NEB RESP TX PRN (12:58)
[2018-11-24] MEDS ORDERED: DOPamine 800 MG/250 ML PREMIX IV SCH (13:00)
[2018-11-24] MEDS ORDERED: TRIAMCINOLONE 0.1% OINT 15 GM TUBE TOP PRN (13:28)
[2018-11-24] MEDS ORDERED: BENZONATATE 100 MG CAPSULE PO PRN (13:28)
[2018-11-24] MEDS: ALBUTEROL/IPRATROPIUM 3 ML NEB RESP TX SCH ×2 (15:25→20:09)
[2018-11-24] MEDS: methylPREDNISolone SOD SUC 125 MG/2 ML VIAL IV SCH ×2 (15:51→22:45)
[2018-11-24] MEDS: LACTATED RINGERS 1,000 ML IV SCH ×2 (15:56→21:05)
[2018-11-24] MEDS: ENOXAPARIN 40 MG/0.4 ML SYRINGE SUBCUT SCH (15:57)
[2018-11-24] MEDS: ACETAMINOPHEN 325 MG TABLET PO PRN (15:58)
[2018-11-24] MEDS ORDERED: SODIUM CHLORIDE 0.9% 1,000 ML IV ONE (16:34)
[2018-11-24] MEDS ORDERED: SODIUM CHLORIDE 0.9% 500 ML IV ONE (16:34)
[2018-11-24] MEDS ORDERED: DOPamine 800 MG/250 ML PREMIX IV PRN (17:42)
[2018-11-24 20:01] LABS: Apearance,Urine Slightly Hazy (Clear); Blood, Urine Negative (Negative); Glucose,Urine (UA) Negative (Negative); Ketones,Urine 5 mg/dL (Negative); Mucus,Urine Occasional /LPF (Occasional); Nitrite,Urine Negative (Negative); Protein,Urine 30 MG/DL; RBC,Urine 1 /HPF (0-4); Squamous Epithelial Cell,Urine Occasional /HPF (0-10); Urine Specific Gravity 1.025 (1.001-1.035); WBC,Urine 3 /HPF (0-6)
[2018-11-24 20:03] LABS: Bilirubin,Urine Small mg/dL (Negative); Urine Color Yellow (Yellow)
[2018-11-24] MEDS ORDERED: MONTELUKAST 10 MG TABLET PO SCH (21:00)
[2018-11-24] MEDS: clonazePAM 0.5 MG TABLET PO PRN (21:10)
[2018-11-24] MEDS: FAMOTIDINE 20 MG TABLET PO SCH (21:11)
[2018-11-25] MEDS: ALBUTEROL/IPRATROPIUM 3 ML NEB RESP TX SCH ×4 (00:50→17:55)
[2018-11-25] MEDS: PIPERACILLIN/TAZOBACTAM 3,375 MG in SODIUM CHLORIDE 0.9% 100 ML IV SCH ×3 (02:27→18:09)
[2018-11-25] MEDS: LACTATED RINGERS 1,000 ML IV SCH (05:40)
[2018-11-25] MEDS: methylPREDNISolone SOD SUC 125 MG/2 ML VIAL IV SCH ×3 (05:40→22:25)
[2018-11-25] MEDS: LEVOTHYROXINE 112 MCG TABLET PO SCH (05:40)
[2018-11-25 06:45] LABS: Basophils % 0.1 % (0.0-0.8); Hematocrit 33.9 VOL% (35.7-47.0); Immature Granulocytes % 0.5 %; Immature Granulocytes Absolute 0.09 #; Lymphocytes # 0.3 10*3/uL (1.4-4.0); Lymphocytes % 1.4 % (21.3-54.2); Mean Corpuscular HGB Conc 30.4 GM/DL (32-36); Mean Corpuscular Hemoglobin 30 PG (27-34); Mean Corpuscular Volume 97.4 FL (87-102); Mean Platelet Volume 12.2 FL (9.6-12.0); Monocytes # 0.5 10*3/uL (0.11-0.8); Monocytes % 2.7 % (1.7-12.7); Neutrophils # 18.5 10*3/uL (1.4-7.4); Neutrophils % 95.3 % (38.7-73.9); Platelet Count 192 T/CUMM (130-400); Red Blood Count 3.48 MC/CUMM (3.8-5.5); Red Cell Distribution Width 16.8 % (9.3-17.3); White Blood Count 19.4 T/CUMM (4-12)
[2018-11-25 06:48] LABS: Albumin 2.3 G/DL (3.4-5.0); Bilirubin,Total 1.2 MG/DL (0.2-1.0); Calcium 7.9 MG/DL (8.5-10.1); Osmolality,Calculated 284.3 MOS/KG (273-304); Potassium 4.7 MMOL/L (3.5-5.1); Total Protein 5.8 G/DL (6.4-8.3)
[2018-11-25 07:03] LABS: Hemoglobin 10.3 GM/DL (12.0-16.0)
[2018-11-25 08:07] LABS: Band Neutrophils 12 % (0-10); Hypochromasia Slight; Lymphocytes 1 % (20-55); Metamyelocytes 2 %; Segmented Neutrophils 83 % (50-85); Total Cells Counted 100
[2018-11-25 08:08] LABS: Microcytosis 1+
[2018-11-25 08:09] LABS: Anisocytosis 1+; Platelet Estimate Adequate
[2018-11-25] MEDS ORDERED: PIMOZIDE 1 MG PO SCH (09:00)
[2018-11-25] MEDS: SERTRALINE 25 MG TABLET PO SCH (09:35)
[2018-11-25] MEDS: CLOPIDOGREL 75 MG TABLET PO SCH (09:36)
[2018-11-25] MEDS: PANTOPRAZOLE 40 MG TABLET PO SCH (09:36)
[2018-11-25] MEDS: LEVOFLOXACIN INJ 500 MG in PREMIX 1 EACH IV SCH (11:54)
[2018-11-25] MEDS: ZINC OXIDE PASTE 113 GM TUBE TOP SCH ×2 (11:55→20:35)
[2018-11-25] MEDS: MONTELUKAST 10 MG TABLET PO SCH ×2 (11:55→20:35)
[2018-11-25 12:07] LABS: % Iron Saturation 6.2 % (18-50)
[2018-11-25] MEDS: DORNASE ALFA 2.5 MG/2.5 ML VIAL RESP TX SCH ×2 (12:45→17:55)
[2018-11-25 13:05] LABS: Folate 7.2 NG/ML (5.4-24.0)
[2018-11-25] MEDS: ACETAMINOPHEN 325 MG TABLET PO PRN ×2 (14:10→22:16)
[2018-11-25] MEDS: ENOXAPARIN 40 MG/0.4 ML SYRINGE SUBCUT SCH (14:10)
[2018-11-25] MEDS: FERROUS SULFATE 325 MG TABLET PO SCH (20:35)
[2018-11-25] MEDS: FAMOTIDINE 20 MG TABLET PO SCH (20:35)
[2018-11-26] MEDS: ALBUTEROL/IPRATROPIUM 3 ML NEB RESP TX SCH ×4 (00:34→20:15)
[2018-11-26] MEDS: PIPERACILLIN/TAZOBACTAM 3,375 MG in SODIUM CHLORIDE 0.9% 100 ML IV SCH ×3 (02:30→18:01)
[2018-11-26 05:26] LABS: Basophils % 0.1 % (0.0-0.8); Hematocrit 31.3 VOL% (35.7-47.0); Hemoglobin 9.3 GM/DL (12.0-16.0); Immature Granulocytes % 1.2 %; Lymphocytes # 0.3 10*3/uL (1.4-4.0); Lymphocytes % 1.7 % (21.3-54.2); Mean Corpuscular HGB Conc 29.7 GM/DL (32-36); Mean Corpuscular Hemoglobin 29 PG (27-34); Mean Corpuscular Volume 97.8 FL (87-102); Mean Platelet Volume 12.1 FL (9.6-12.0); Monocytes # 0.4 10*3/uL (0.11-0.8); Monocytes % 2.1 % (1.7-12.7); Neutrophils # 16.1 10*3/uL (1.4-7.4); Neutrophils % 94.9 % (38.7-73.9); Platelet Count 176 T/CUMM (130-400); Red Cell Distribution Width 16.5 % (9.3-17.3); White Blood Count 16.9 T/CUMM (4-12)
[2018-11-26 05:45] LABS: Calcium 8.6 MG/DL (8.5-10.1); Osmolality,Calculated 281.7 MOS/KG (273-304); Potassium 4.5 MMOL/L (3.5-5.1)
[2018-11-26 06:26] LABS: Anisocytosis 1+; Band Neutrophils 2 % (0-10); Lymphocytes 4 % (20-55); Platelet Estimate Adequate; Segmented Neutrophils 91 % (50-85); Total Cells Counted 100
[2018-11-26] MEDS: methylPREDNISolone SOD SUC 125 MG/2 ML VIAL IV SCH ×3 (06:30→21:49)
[2018-11-26] MEDS: LEVOTHYROXINE 112 MCG TABLET PO SCH (06:30)
[2018-11-26] MEDS: ONDANSETRON 4 MG/2 ML VIAL IV PRN ×2 (06:33→20:58)
[2018-11-26] MEDS: DORNASE ALFA 2.5 MG/2.5 ML VIAL RESP TX SCH ×2 (07:15→20:22)
[2018-11-26] MEDS: MONTELUKAST 10 MG TABLET PO SCH ×2 (09:50→20:59)
[2018-11-26] MEDS: SERTRALINE 25 MG TABLET PO SCH (09:50)
[2018-11-26] MEDS: PANTOPRAZOLE 40 MG TABLET PO SCH (09:51)
[2018-11-26] MEDS: CLOPIDOGREL 75 MG TABLET PO SCH (09:51)
[2018-11-26] MEDS: FERROUS SULFATE 325 MG TABLET PO SCH ×2 (09:51→20:59)
[2018-11-26] MEDS: ZINC OXIDE PASTE 113 GM TUBE TOP SCH ×2 (09:54→20:59)
[2018-11-26] MEDS: clonazePAM 0.5 MG TABLET PO PRN ×3 (09:55→20:59)
[2018-11-26] MEDS: LEVOFLOXACIN INJ 500 MG in PREMIX 1 EACH IV SCH (13:40)
[2018-11-26] MEDS: ENOXAPARIN 40 MG/0.4 ML SYRINGE SUBCUT SCH (14:52)
[2018-11-26] MEDS: ACETAMINOPHEN 325 MG TABLET PO PRN (18:03)
[2018-11-26] MEDS: FAMOTIDINE 20 MG TABLET PO SCH (20:59)
[2018-11-27] MEDS: ALBUTEROL/IPRATROPIUM 3 ML NEB RESP TX SCH ×4 (01:07→19:24)
[2018-11-27] MEDS: PIPERACILLIN/TAZOBACTAM 3,375 MG in SODIUM CHLORIDE 0.9% 100 ML IV SCH ×3 (02:01→17:24)
[2018-11-27 05:10] LABS: Basophils % 0.2 % (0.0-0.8); Hematocrit 31.2 VOL% (35.7-47.0); Hemoglobin 9.2 GM/DL (12.0-16.0); Immature Granulocytes % 1.2 %; Immature Granulocytes Absolute 0.15 #; Lymphocytes # 0.3 10*3/uL (1.4-4.0); Lymphocytes % 2.2 % (21.3-54.2); Mean Corpuscular HGB Conc 29.5 GM/DL (32-36); Mean Corpuscular Hemoglobin 29 PG (27-34); Mean Corpuscular Volume 98.7 FL (87-102); Monocytes # 0.4 10*3/uL (0.11-0.8); Monocytes % 2.8 % (1.7-12.7); NRBC # 0.04 10*3/uL; Neutrophils # 11.8 10*3/uL (1.4-7.4); Neutrophils % 93.6 % (38.7-73.9); Platelet Count 173 T/CUMM (130-400); Red Blood Count 3.16 MC/CUMM (3.8-5.5); Red Cell Distribution Width 16.7 % (9.3-17.3); White Blood Count 12.6 T/CUMM (4-12)
[2018-11-27 05:25] LABS: Calcium 8.6 MG/DL (8.5-10.1); Osmolality,Calculated 289.3 MOS/KG (273-304); Potassium 4.3 MMOL/L (3.5-5.1)
[2018-11-27] MEDS: methylPREDNISolone SOD SUC 125 MG/2 ML VIAL IV SCH ×3 (06:03→21:35)
[2018-11-27] MEDS: LEVOTHYROXINE 112 MCG TABLET PO SCH (06:03)
[2018-11-27 06:16] LABS: Anisocytosis Slight; Band Neutrophils 27 % (0-10); Lymphocytes 2 % (20-55); Platelet Estimate Normal; Segmented Neutrophils 70 % (50-85); Total Cells Counted 100
[2018-11-27] MEDS: DORNASE ALFA 2.5 MG/2.5 ML VIAL RESP TX SCH ×2 (07:16→19:24)
[2018-11-27] MEDS: clonazePAM 0.5 MG TABLET PO PRN ×3 (10:03→21:35)
[2018-11-27] MEDS: MONTELUKAST 10 MG TABLET PO SCH ×2 (10:03→21:36)
[2018-11-27] MEDS: FERROUS SULFATE 325 MG TABLET PO SCH ×2 (10:04→21:35)
[2018-11-27] MEDS: SERTRALINE 25 MG TABLET PO SCH (10:04)
[2018-11-27] MEDS: CLOPIDOGREL 75 MG TABLET PO SCH (10:05)
[2018-11-27] MEDS: PANTOPRAZOLE 40 MG TABLET PO SCH (10:06)
[2018-11-27] MEDS: ZINC OXIDE PASTE 113 GM TUBE TOP SCH ×2 (10:07→21:41)
[2018-11-27] MEDS: ENOXAPARIN 40 MG/0.4 ML SYRINGE SUBCUT SCH (13:15)
[2018-11-27] MEDS: LEVOFLOXACIN INJ 500 MG in PREMIX 1 EACH IV SCH (14:04)
[2018-11-27] MEDS: FAMOTIDINE 20 MG TABLET PO SCH (21:35)
[2018-11-28] MEDS: ALBUTEROL/IPRATROPIUM 3 ML NEB RESP TX SCH ×4 (00:29→19:38)
[2018-11-28] MEDS: PIPERACILLIN/TAZOBACTAM 3,375 MG in SODIUM CHLORIDE 0.9% 100 ML IV SCH ×2 (02:27→09:39)
[2018-11-28 05:49] LABS: Basophils % 0.2 % (0.0-0.8); Hematocrit 33.8 VOL% (35.7-47.0); Hemoglobin 10.3 GM/DL (12.0-16.0); Immature Granulocytes % 1.7 %; Immature Granulocytes Absolute 0.21 #; Lymphocytes # 0.3 10*3/uL (1.4-4.0); Lymphocytes % 2.7 % (21.3-54.2); Mean Corpuscular HGB Conc 30.5 GM/DL (32-36); Mean Corpuscular Hemoglobin 29 PG (27-34); Mean Corpuscular Volume 95.8 FL (87-102); Mean Platelet Volume 11.7 FL (9.6-12.0); Monocytes # 0.5 10*3/uL (0.11-0.8); Monocytes % 4.2 % (1.7-12.7); NRBC # 0.02 10*3/uL; Neutrophils # 11.6 10*3/uL (1.4-7.4); Neutrophils % 91.2 % (38.7-73.9); Platelet Count 177 T/CUMM (130-400); Red Blood Count 3.53 MC/CUMM (3.8-5.5); Red Cell Distribution Width 16.2 % (9.3-17.3); White Blood Count 12.7 T/CUMM (4-12)
[2018-11-28 06:23] LABS: Calcium 8.6 MG/DL (8.5-10.1); Osmolality,Calculated 284.4 MOS/KG (273-304); Potassium 3.3 MMOL/L (3.5-5.1)
[2018-11-28] MEDS: methylPREDNISolone SOD SUC 125 MG/2 ML VIAL IV SCH ×3 (06:25→22:31)
[2018-11-28] MEDS: LEVOTHYROXINE 112 MCG TABLET PO SCH (06:25)
[2018-11-28 07:13] LABS: Band Neutrophils 1 % (0-10); Lymphocytes 2 % (20-55); Segmented Neutrophils 90 % (50-85); Total Cells Counted 100
[2018-11-28 07:14] LABS: Hypochromasia 1+; Microcytosis 1+; Platelet Estimate Adequate
[2018-11-28] MEDS: DORNASE ALFA 2.5 MG/2.5 ML VIAL RESP TX SCH ×2 (07:40→19:38)
[2018-11-28] MEDS ORDERED: POTASSIUM CHLORIDE 20 MEQ/15 ML UDCUP PER TUBE PRN (08:37)
[2018-11-28] MEDS: SERTRALINE 25 MG TABLET PO SCH (09:37)
[2018-11-28] MEDS: MONTELUKAST 10 MG TABLET PO SCH ×2 (09:37→20:21)
[2018-11-28] MEDS: CLOPIDOGREL 75 MG TABLET PO SCH (09:37)
[2018-11-28] MEDS: PANTOPRAZOLE 40 MG TABLET PO SCH (09:38)
[2018-11-28] MEDS: FERROUS SULFATE 325 MG TABLET PO SCH ×2 (09:38→20:22)
[2018-11-28] MEDS: ZINC OXIDE PASTE 113 GM TUBE TOP SCH ×2 (09:40→20:22)
[2018-11-28] MEDS: clonazePAM 0.5 MG TABLET PO PRN ×2 (09:43→22:31)
[2018-11-28] MEDS: POTASSIUM CHLORIDE 20 MEQ TABLET PO PRN ×3 (10:00→14:03)
[2018-11-28] MEDS: cefTRIAXone 1,000 MG in SYRINGE 1 EACH IV SCH (11:45)
[2018-11-28] MEDS: ENOXAPARIN 40 MG/0.4 ML SYRINGE SUBCUT SCH (14:01)
[2018-11-28] MEDS: ONDANSETRON 4 MG/2 ML VIAL IV PRN (16:51)
[2018-11-28] MEDS: FAMOTIDINE 20 MG TABLET PO SCH (20:22)
[2018-11-29] MEDS: ALBUTEROL/IPRATROPIUM 3 ML NEB RESP TX SCH ×4 (00:59→19:15)
[2018-11-29] MEDS: methylPREDNISolone SOD SUC 125 MG/2 ML VIAL IV SCH (05:34)
[2018-11-29] MEDS: LEVOTHYROXINE 112 MCG TABLET PO SCH (05:34)
[2018-11-29] MEDS: ONDANSETRON 4 MG/2 ML VIAL IV PRN (05:48)
[2018-11-29 06:06] LABS: Basophils % 0.2 % (0.0-0.8); Hematocrit 34.4 VOL% (35.7-47.0); Hemoglobin 10.4 GM/DL (12.0-16.0); Immature Granulocytes % 2.2 %; Immature Granulocytes Absolute 0.34 #; Lymphocytes # 0.4 10*3/uL (1.4-4.0); Lymphocytes % 2.4 % (21.3-54.2); Mean Corpuscular HGB Conc 30.2 GM/DL (32-36); Mean Corpuscular Hemoglobin 29 PG (27-34); Mean Corpuscular Volume 96.1 FL (87-102); Mean Platelet Volume 12.1 FL (9.6-12.0); Monocytes # 0.7 10*3/uL (0.11-0.8); Monocytes % 4.8 % (1.7-12.7); NRBC # 0.02 10*3/uL; Neutrophils # 13.9 10*3/uL (1.4-7.4); Neutrophils % 90.4 % (38.7-73.9); Platelet Count 167 T/CUMM (130-400); Red Blood Count 3.58 MC/CUMM (3.8-5.5); Red Cell Distribution Width 15.9 % (9.3-17.3); White Blood Count 15.3 T/CUMM (4-12)
[2018-11-29 06:22] LABS: Calcium 8.7 MG/DL (8.5-10.1); Osmolality,Calculated 286.5 MOS/KG (273-304); Potassium 4.1 MMOL/L (3.5-5.1)
[2018-11-29] MEDS: DORNASE ALFA 2.5 MG/2.5 ML VIAL RESP TX SCH ×2 (07:10→19:24)
[2018-11-29 07:39] LABS: Segmented Neutrophils 98 % (50-85); Total Cells Counted 100
[2018-11-29 07:40] LABS: Hypochromasia 1+; Microcytosis Slight; Polychromasia Few
[2018-11-29 07:41] LABS: Platelet Estimate Adequate
[2018-11-29] MEDS: FERROUS SULFATE 325 MG TABLET PO SCH ×2 (09:40→20:57)
[2018-11-29] MEDS: SERTRALINE 25 MG TABLET PO SCH (09:40)
[2018-11-29] MEDS: ZINC OXIDE PASTE 113 GM TUBE TOP SCH ×2 (09:40→21:03)
[2018-11-29] MEDS: clonazePAM 0.5 MG TABLET PO PRN ×2 (09:41→20:57)
[2018-11-29] MEDS: CLOPIDOGREL 75 MG TABLET PO SCH (09:41)
[2018-11-29] MEDS: ACETAMINOPHEN 325 MG TABLET PO PRN (09:41)
[2018-11-29] MEDS: PANTOPRAZOLE 40 MG TABLET PO SCH (09:42)
[2018-11-29] MEDS: MONTELUKAST 10 MG TABLET PO SCH ×2 (09:43→20:57)
[2018-11-29] MEDS: cefTRIAXone 1,000 MG in SYRINGE 1 EACH IV SCH (10:35)
[2018-11-29] MEDS: ISOSORBIDE MONONITRATE 30 MG TABLET PO SCH (10:44)
[2018-11-29] MEDS: ENOXAPARIN 40 MG/0.4 ML SYRINGE SUBCUT SCH (14:01)
[2018-11-29] MEDS: FAMOTIDINE 20 MG TABLET PO SCH (20:57)
[2018-11-29] MEDS: methylPREDNISolone SOD SUC 40 MG/1 ML VIAL IV SCH (20:59)
[2018-11-30] MEDS: ALBUTEROL/IPRATROPIUM 3 ML NEB RESP TX SCH ×2 (00:51→07:17)
[2018-11-30] MEDS: LEVOTHYROXINE 112 MCG TABLET PO SCH (06:00)
[2018-11-30 06:18] LABS: Basophils % 0.1 % (0.0-0.8); Hematocrit 33.4 VOL% (35.7-47.0); Hemoglobin 10.2 GM/DL (12.0-16.0); Immature Granulocytes % 4.6 %; Immature Granulocytes Absolute 0.65 #; Lymphocytes # 0.5 10*3/uL (1.4-4.0); Lymphocytes % 3.6 % (21.3-54.2); Mean Corpuscular HGB Conc 30.5 GM/DL (32-36); Mean Corpuscular Hemoglobin 29 PG (27-34); Mean Corpuscular Volume 94.9 FL (87-102); Mean Platelet Volume 12.3 FL (9.6-12.0); Monocytes # 0.7 10*3/uL (0.11-0.8); NRBC # 0.02 10*3/uL; Neutrophils # 12.1 10*3/uL (1.4-7.4); Neutrophils % 86.7 % (38.7-73.9); Platelet Count 172 T/CUMM (130-400); Red Blood Count 3.52 MC/CUMM (3.8-5.5); Red Cell Distribution Width 16.2 % (9.3-17.3)
[2018-11-30 06:40] LABS: Band Neutrophils 1 % (0-10); Hypochromasia 1+; Lymphocytes 5 % (20-55); Microcytosis Slight; Platelet Estimate Adequate; Segmented Neutrophils 88 % (50-85); Total Cells Counted 100
[2018-11-30] MEDS: DORNASE ALFA 2.5 MG/2.5 ML VIAL RESP TX SCH (07:17)
[2018-11-30] MEDS: SERTRALINE 25 MG TABLET PO SCH (10:24)
[2018-11-30] MEDS: MONTELUKAST 10 MG TABLET PO SCH (10:25)
[2018-11-30] MEDS: CLOPIDOGREL 75 MG TABLET PO SCH (10:25)
[2018-11-30] MEDS: PANTOPRAZOLE 40 MG TABLET PO SCH (10:25)
[2018-11-30] MEDS: FERROUS SULFATE 325 MG TABLET PO SCH (10:25)
[2018-11-30] MEDS: ISOSORBIDE MONONITRATE 30 MG TABLET PO SCH (10:25)
[2018-11-30] MEDS: methylPREDNISolone SOD SUC 40 MG/1 ML VIAL IV SCH (10:26)
[2018-11-30] MEDS: ZINC OXIDE PASTE 113 GM TUBE TOP SCH (10:26)
[2018-11-30] MEDS: cefTRIAXone 1,000 MG in SYRINGE 1 EACH IV SCH (11:53)
[2018-11-30] MEDS: clonazePAM 0.5 MG TABLET PO PRN (11:54)
[2018-11-30] MEDS ORDERED: BISACODYL 10 MG SUPP RECTAL ONE (12:08)
[2018-11-30 16:26] VITALS: BP 146/79
== END 2018-11-30 14:02 | disposition swing bed (61) | DRG 871 ==
LOC: N.ED 09:54 → SUATTDRO 12:58 → N.CC 13:38 → N.5E 11-26 15:55
PROVIDERS: ADMIT Family Medicine; ATTEND Internal Medicine

== ENCOUNTER 2019-03-25 17:52 | Inpatient (IN) ==
[2019-03-25] MEDS ORDERED: ALBUTEROL/IPRATROPIUM 3 ML NEB RESP TX STA (18:19)
[2019-03-25] MEDS ORDERED: methylPREDNISolone SOD SUC 125 MG/2 ML VIAL IV STA (18:20)
[2019-03-25 18:46] LABS: Basophils % 0.4 % (0.0-0.8); Eosinophils # 0.1 10*3/uL (0.0-0.87); Eosinophils % 0.9 % (0.00-10.9); Immature Granulocytes % 0.6 %; Immature Granulocytes Absolute 0.07 #; Lymphocytes # 1.1 10*3/uL (1.4-4.0); Lymphocytes % 9.8 % (21.3-54.2); Mean Corpuscular HGB Conc 29.5 GM/DL (32-36); Mean Corpuscular Volume 99.7 FL (87-102); Mean Platelet Volume 10.8 FL (9.6-12.0); Monocytes % 6.1 % (1.7-12.7); Neutrophils % 82.2 % (38.7-73.9); Platelet Count 264 T/CUMM (130-400); Red Cell Distribution Width 15.6 % (9.3-17.3); White Blood Count 11.1 T/CUMM (4-12)
[2019-03-25] MEDS ORDERED: ALBUTEROL 2.5 MG/3 ML NEB RESP TX STA (18:48)
[2019-03-25 18:56] LABS: Hematocrit 35.9 VOL% (35.7-47.0); Hemoglobin 10.6 GM/DL (12.0-16.0)
[2019-03-25 19:00] LABS: Calcium 8.6 MG/DL (8.5-10.1); Osmolality,Calculated 287.8 MOS/KG (273-304)
[2019-03-25] MEDS ORDERED: LEVOFLOXACIN INJ 500 MG in PREMIX 1 EACH IV STA (19:29)
[2019-03-25] MEDS ORDERED: ENOXAPARIN 30 MG/0.3 ML SYRINGE SUBCUT SCH (21:00)
[2019-03-25] MEDS ORDERED: BENZONATATE 100 MG CAPSULE PO PRN (21:13)
[2019-03-25] MEDS ORDERED: ONDANSETRON 4 MG/2 ML VIAL IV PRN (21:13)
[2019-03-25] MEDS ORDERED: MECLIZINE 25 MG TABLET PO PRN (21:13)
[2019-03-25] MEDS ORDERED: TRIAMCINOLONE 0.1% OINT 15 GM TUBE TOP PRN (21:13)
[2019-03-25] MEDS ORDERED: METHOCARBAMOL 750 MG TABLET PO PRN (21:13)
[2019-03-25] MEDS: ALBUTEROL 2.5 MG/3 ML NEB RESP TX SCH ×2 (22:05→22:46)
[2019-03-25] MEDS: PANTOPRAZOLE 40 MG TABLET PO SCH (22:12)
[2019-03-25] MEDS: MONTELUKAST 10 MG TABLET PO SCH (22:12)
[2019-03-25] MEDS: clonazePAM 0.5 MG TABLET PO PRN (22:12)
[2019-03-25] MEDS: rOPINIRole 0.25 MG TABLET PO SCH (22:13)
[2019-03-25] MEDS: SODIUM CHLORIDE 0.9% 1,000 ML IV SCH (22:19)
[2019-03-25] MEDS: BUDESONIDE/FORMOTEROL 160-4.5 INHALER 6 GM INH SCH (23:47)
[2019-03-26] MEDS: ALBUTEROL 2.5 MG/3 ML NEB RESP TX SCH ×6 (03:19→22:44)
[2019-03-26 05:28] LABS: Calcium 8.5 MG/DL (8.5-10.1); Osmolality,Calculated 284.1 MOS/KG (273-304)
[2019-03-26 05:37] LABS: Basophils % 0.4 % (0.0-0.8); Hematocrit 34.8 VOL% (35.7-47.0); Immature Granulocytes % 1.1 %; Immature Granulocytes Absolute 0.08 #; Lymphocytes # 0.5 10*3/uL (1.4-4.0); Lymphocytes % 5.9 % (21.3-54.2); Mean Corpuscular HGB Conc 30.5 GM/DL (32-36); Mean Corpuscular Volume 99.7 FL (87-102); Mean Platelet Volume 11.4 FL (9.6-12.0); Monocytes % 0.7 % (1.7-12.7); Neutrophils % 91.9 % (38.7-73.9); Platelet Count 246 T/CUMM (130-400); Red Blood Count 3.49 MC/CUMM (3.8-5.5); Red Cell Distribution Width 15.2 % (9.3-17.3); White Blood Count 7.6 T/CUMM (4-12)
[2019-03-26 05:41] LABS: Hemoglobin 10.6 GM/DL (12.0-16.0)
[2019-03-26] MEDS: LEVOTHYROXINE 112 MCG TABLET PO SCH (05:52)
[2019-03-26 05:57] LABS: Lymphocytes 5 % (20-55); Nucleated Red Blood Cells 1 (0-5); Platelet Estimate Normal; Segmented Neutrophils 95 % (50-85); Total Cells Counted 100
[2019-03-26] MEDS: BUDESONIDE/FORMOTEROL 160-4.5 INHALER 6 GM INH SCH ×2 (09:23→22:57)
[2019-03-26] MEDS: rOPINIRole 0.25 MG TABLET PO SCH ×3 (09:24→22:58)
[2019-03-26] MEDS: CLOPIDOGREL 75 MG TABLET PO SCH (09:24)
[2019-03-26] MEDS: ISOSORBIDE MONONITRATE 30 MG TABLET PO SCH (09:24)
[2019-03-26] MEDS: PANTOPRAZOLE 40 MG TABLET PO SCH ×2 (09:24→22:58)
[2019-03-26] MEDS: SERTRALINE 50 MG TABLET PO SCH (09:24)
[2019-03-26] MEDS: methylPREDNISolone SOD SUC 40 MG/1 ML VIAL IV SCH ×2 (09:25→22:57)
[2019-03-26] MEDS: FERROUS SULFATE 325 MG TABLET PO SCH (09:25)
[2019-03-26] MEDS: ACETAMINOPHEN 325 MG TABLET PO PRN ×2 (09:27→14:11)
[2019-03-26] MEDS: ALBUTEROL 2 MG TABLET PO SCH ×3 (09:29→15:14)
[2019-03-26] MEDS ORDERED: hydrALAZINE 20 MG/1 ML VIAL IV PRN (09:40)
[2019-03-26] MEDS ORDERED: amLODIPine 5 MG TABLET PO SCH (10:00)
[2019-03-26] MEDS: SODIUM CHLORIDE 0.9% 1,000 ML IV SCH ×2 (13:31→15:16)
[2019-03-26] MEDS ORDERED: KETOROLAC 30 MG/1 ML VIAL IV ONE (17:47)
[2019-03-26] MEDS: ENOXAPARIN 40 MG/0.4 ML SYRINGE SUBCUT SCH (23:00)
[2019-03-26] MEDS: LEVOFLOXACIN INJ 500 MG in PREMIX 1 EACH IV SCH (23:00)
[2019-03-26] MEDS: MONTELUKAST 10 MG TABLET PO SCH (23:00)
[2019-03-27] MEDS: ALBUTEROL 2.5 MG/3 ML NEB RESP TX SCH ×2 (02:40→07:08)
[2019-03-27 05:49] LABS: Basophils % 0.3 % (0.0-0.8); Hemoglobin 10.1 GM/DL (12.0-16.0); Immature Granulocytes % 1.1 %; Immature Granulocytes Absolute 0.13 #; Lymphocytes # 0.5 10*3/uL (1.4-4.0); Lymphocytes % 4.7 % (21.3-54.2); Mean Corpuscular HGB Conc 29.7 GM/DL (32-36); Mean Corpuscular Volume 100.6 FL (87-102); Mean Platelet Volume 11.2 FL (9.6-12.0); Monocytes % 2.7 % (1.7-12.7); Neutrophils % 91.2 % (38.7-73.9); Platelet Count 243 T/CUMM (130-400); Red Blood Count 3.38 MC/CUMM (3.8-5.5); Red Cell Distribution Width 15.4 % (9.3-17.3); White Blood Count 11.4 T/CUMM (4-12)
[2019-03-27 05:58] LABS: Calcium 8.9 MG/DL (8.5-10.1); Osmolality,Calculated 289.8 MOS/KG (273-304)
[2019-03-27 06:10] LABS: Hypochromasia 1+; Lymphocytes 1 % (20-55); Platelet Estimate Adequate; Segmented Neutrophils 96 % (50-85); Total Cells Counted 100
[2019-03-27] MEDS: clonazePAM 0.5 MG TABLET PO PRN ×3 (06:18→22:16)
[2019-03-27] MEDS: LEVOTHYROXINE 112 MCG TABLET PO SCH (06:18)
[2019-03-27] MEDS: PANTOPRAZOLE 40 MG TABLET PO SCH ×2 (08:46→21:10)
[2019-03-27] MEDS: rOPINIRole 0.25 MG TABLET PO SCH ×3 (08:46→21:10)
[2019-03-27] MEDS: SERTRALINE 50 MG TABLET PO SCH (08:47)
[2019-03-27] MEDS: CLOPIDOGREL 75 MG TABLET PO SCH (08:47)
[2019-03-27] MEDS: FERROUS SULFATE 325 MG TABLET PO SCH (08:47)
[2019-03-27] MEDS: ISOSORBIDE MONONITRATE 30 MG TABLET PO SCH (08:47)
[2019-03-27] MEDS: SODIUM CHLORIDE 0.9% 1,000 ML IV SCH (09:28)
[2019-03-27] MEDS: ALBUTEROL 2 MG TABLET PO SCH ×4 (09:43→21:10)
[2019-03-27] MEDS: methylPREDNISolone SOD SUC 40 MG/1 ML VIAL IV SCH ×2 (10:28→21:10)
[2019-03-27] MEDS: BUDESONIDE/FORMOTEROL 160-4.5 INHALER 6 GM INH SCH ×2 (10:31→21:16)
[2019-03-27] MEDS: ALBUTEROL/IPRATROPIUM 3 ML NEB RESP TX SCH ×4 (11:02→23:52)
[2019-03-27] MEDS: ENOXAPARIN 40 MG/0.4 ML SYRINGE SUBCUT SCH (21:09)
[2019-03-27] MEDS: MONTELUKAST 10 MG TABLET PO SCH (21:10)
[2019-03-27] MEDS: LEVOFLOXACIN INJ 500 MG in PREMIX 1 EACH IV SCH (21:15)
[2019-03-28] MEDS: ALBUTEROL/IPRATROPIUM 3 ML NEB RESP TX SCH ×6 (03:14→23:03)
[2019-03-28] MEDS: LEVOTHYROXINE 112 MCG TABLET PO SCH (06:12)
[2019-03-28] MEDS: ISOSORBIDE MONONITRATE 30 MG TABLET PO SCH (09:04)
[2019-03-28] MEDS: CLOPIDOGREL 75 MG TABLET PO SCH (09:05)
[2019-03-28] MEDS: SERTRALINE 50 MG TABLET PO SCH (09:05)
[2019-03-28] MEDS: FERROUS SULFATE 325 MG TABLET PO SCH (09:05)
[2019-03-28] MEDS: PANTOPRAZOLE 40 MG TABLET PO SCH ×2 (09:05→20:26)
[2019-03-28] MEDS: ALBUTEROL 2 MG TABLET PO SCH ×3 (09:06→20:24)
[2019-03-28] MEDS: methylPREDNISolone SOD SUC 40 MG/1 ML VIAL IV SCH ×2 (09:07→20:25)
[2019-03-28] MEDS ORDERED: SIMETHICONE CHEW 80 MG TABLET PO PRN (10:17)
[2019-03-28] MEDS: BUDESONIDE/FORMOTEROL 160-4.5 INHALER 6 GM INH SCH ×2 (10:20→20:31)
[2019-03-28] MEDS: rOPINIRole 0.25 MG TABLET PO SCH ×3 (10:20→20:24)
[2019-03-28] MEDS: MONTELUKAST 10 MG TABLET PO SCH ×2 (13:58→20:25)
[2019-03-28] MEDS: clonazePAM 0.5 MG TABLET PO PRN (16:32)
[2019-03-28] MEDS: LEVOFLOXACIN INJ 500 MG in PREMIX 1 EACH IV SCH (20:24)
[2019-03-28] MEDS: ENOXAPARIN 40 MG/0.4 ML SYRINGE SUBCUT SCH (20:26)
[2019-03-28] MEDS: ACETAMINOPHEN 325 MG TABLET PO PRN (21:43)
[2019-03-29] MEDS: clonazePAM 0.5 MG TABLET PO PRN ×2 (00:20→18:05)
[2019-03-29] MEDS: ALBUTEROL/IPRATROPIUM 3 ML NEB RESP TX SCH ×6 (04:00→23:08)
[2019-03-29] MEDS: ACETAMINOPHEN 325 MG TABLET PO PRN (05:10)
[2019-03-29] MEDS: LEVOTHYROXINE 112 MCG TABLET PO SCH (06:26)
[2019-03-29] MEDS: methylPREDNISolone SOD SUC 40 MG/1 ML VIAL IV SCH ×2 (08:54→21:25)
[2019-03-29] MEDS: rOPINIRole 0.25 MG TABLET PO SCH ×3 (08:54→21:39)
[2019-03-29] MEDS: MONTELUKAST 10 MG TABLET PO SCH ×2 (08:55→21:30)
[2019-03-29] MEDS: PANTOPRAZOLE 40 MG TABLET PO SCH ×2 (08:55→21:29)
[2019-03-29] MEDS: CLOPIDOGREL 75 MG TABLET PO SCH (08:55)
[2019-03-29] MEDS: FERROUS SULFATE 325 MG TABLET PO SCH (08:55)
[2019-03-29] MEDS: ISOSORBIDE MONONITRATE 30 MG TABLET PO SCH (08:55)
[2019-03-29] MEDS: SERTRALINE 50 MG TABLET PO SCH (08:55)
[2019-03-29] MEDS: BUDESONIDE/FORMOTEROL 160-4.5 INHALER 6 GM INH SCH ×2 (08:55→21:29)
[2019-03-29] MEDS: ALBUTEROL 2 MG TABLET PO SCH ×3 (08:55→21:29)
[2019-03-29] MEDS ORDERED: BISACODYL 5 MG TABLET PO PRN (09:46)
[2019-03-29] MEDS: DORNASE ALFA 2.5 MG/2.5 ML VIAL RESP TX SCH ×2 (11:12→19:22)
[2019-03-29] MEDS ORDERED: NITROGLYCERIN SL 0.4 MG TABLET SL ONE (11:39)
[2019-03-29] MEDS ORDERED: ASPIRIN CHEW 81 MG TABLET PO ONE ×2 (11:39→11:40)
[2019-03-29] MEDS ORDERED: NITROGLYCERIN SL 0.4 MG TABLET SL PRN (11:40)
[2019-03-29] MEDS ORDERED: HYDROCORTISONE 2.5% RECTAL CREAM 30 GM TUBE TOP PRN (15:17)
[2019-03-29] MEDS ORDERED: DOCUSATE SODIUM 100 MG CAPSULE PO PRN (15:17)
[2019-03-29] MEDS: LEVOFLOXACIN INJ 500 MG in PREMIX 1 EACH IV SCH (21:25)
[2019-03-29] MEDS: ENOXAPARIN 40 MG/0.4 ML SYRINGE SUBCUT SCH (21:30)
[2019-03-30] MEDS: ALBUTEROL/IPRATROPIUM 3 ML NEB RESP TX SCH ×6 (03:37→23:50)
[2019-03-30] MEDS: LEVOTHYROXINE 112 MCG TABLET PO SCH (06:24)
[2019-03-30] MEDS: DORNASE ALFA 2.5 MG/2.5 ML VIAL RESP TX SCH ×2 (07:21→19:48)
[2019-03-30] MEDS: methylPREDNISolone SOD SUC 40 MG/1 ML VIAL IV SCH ×2 (08:15→22:00)
[2019-03-30] MEDS: MONTELUKAST 10 MG TABLET PO SCH ×2 (08:15→22:13)
[2019-03-30] MEDS: rOPINIRole 0.25 MG TABLET PO SCH ×3 (08:15→22:14)
[2019-03-30] MEDS: ISOSORBIDE MONONITRATE 30 MG TABLET PO SCH (08:16)
[2019-03-30] MEDS: CLOPIDOGREL 75 MG TABLET PO SCH (08:16)
[2019-03-30] MEDS: FERROUS SULFATE 325 MG TABLET PO SCH (08:16)
[2019-03-30] MEDS: SERTRALINE 50 MG TABLET PO SCH (08:16)
[2019-03-30] MEDS: PANTOPRAZOLE 40 MG TABLET PO SCH ×2 (08:16→22:12)
[2019-03-30] MEDS: BUDESONIDE/FORMOTEROL 160-4.5 INHALER 6 GM INH SCH ×2 (08:22→22:13)
[2019-03-30] MEDS: ALBUTEROL 2 MG TABLET PO SCH ×3 (08:24→22:13)
[2019-03-30 09:29] LABS: Calcium 8.5 MG/DL (8.5-10.1)
[2019-03-30] MEDS: LEVOFLOXACIN INJ 500 MG in PREMIX 1 EACH IV SCH (22:10)
[2019-03-30] MEDS: ENOXAPARIN 40 MG/0.4 ML SYRINGE SUBCUT SCH (22:12)
[2019-03-31] MEDS: clonazePAM 0.5 MG TABLET PO PRN ×2 (00:44→10:01)
[2019-03-31] MEDS: ALBUTEROL/IPRATROPIUM 3 ML NEB RESP TX SCH ×2 (03:24→06:54)
[2019-03-31] MEDS: LEVOTHYROXINE 112 MCG TABLET PO SCH (06:49)
[2019-03-31] MEDS: DORNASE ALFA 2.5 MG/2.5 ML VIAL RESP TX SCH (06:54)
[2019-03-31] MEDS ORDERED: predniSONE 20 MG TABLET PO SCH (09:00)
[2019-03-31] MEDS ORDERED: LISINOPRIL 10 MG TABLET PO SCH (09:00)
[2019-03-31] MEDS: FERROUS SULFATE 325 MG TABLET PO SCH (09:49)
[2019-03-31] MEDS: CLOPIDOGREL 75 MG TABLET PO SCH (09:49)
[2019-03-31] MEDS: ISOSORBIDE MONONITRATE 30 MG TABLET PO SCH (09:49)
[2019-03-31] MEDS: BUDESONIDE/FORMOTEROL 160-4.5 INHALER 6 GM INH SCH (09:50)
[2019-03-31] MEDS: MONTELUKAST 10 MG TABLET PO SCH (09:50)
[2019-03-31] MEDS: PANTOPRAZOLE 40 MG TABLET PO SCH (09:50)
[2019-03-31] MEDS: rOPINIRole 0.25 MG TABLET PO SCH (09:50)
[2019-03-31] MEDS: ALBUTEROL 2 MG TABLET PO SCH (09:50)
[2019-03-31] MEDS: SERTRALINE 50 MG TABLET PO SCH (09:51)
[2019-03-31 11:26] VITALS: BP 172/96
[2019-04-11] MEDS ORDERED: CYANOCOBALAMIN 1000 MCG/1 ML VIAL IM SCH (09:00)
== END 2019-03-31 11:50 | disposition swing bed (61) | DRG 191 ==
LOC: N.ED 17:52 → N.EDINP 19:52 → SUATTDRO 19:52 → N.2E 20:29
PROVIDERS: ADMIT Family Medicine; ATTEND Internal Medicine

== ENCOUNTER 2019-04-21 15:49 | Inpatient (IN) ==
[2019-04-21] MEDS ORDERED: ONDANSETRON 4 MG/2 ML VIAL IV STA (19:23)
[2019-04-21] MEDS ORDERED: methylPREDNISolone SOD SUC 125 MG/2 ML VIAL IV STA (19:23)
[2019-04-21] MEDS ORDERED: LEVOFLOXACIN INJ 750 MG in PREMIX 1 EACH IV STA (19:26)
[2019-04-21] MEDS ORDERED: ALBUTEROL 2.5 MG/3 ML NEB RESP TX SCH (19:30)
[2019-04-21 20:04] LABS: Basophils % 0.3 % (0.0-0.8); Eosinophils % 0.2 % (0.00-10.9); Hematocrit 37.6 VOL% (35.7-47.0); Hemoglobin 11.2 GM/DL (12.0-16.0); Immature Granulocytes % 1.5 %; Immature Granulocytes Absolute 0.14 #; Lymphocytes % 10.6 % (21.3-54.2); Mean Corpuscular HGB Conc 29.8 GM/DL (32-36); Mean Corpuscular Volume 97.9 FL (87-102); Mean Platelet Volume 10.7 FL (9.6-12.0); Monocytes % 4.3 % (1.7-12.7); Neutrophils % 83.1 % (38.7-73.9); Platelet Count 336 T/CUMM (130-400); Red Blood Count 3.84 MC/CUMM (3.8-5.5); Red Cell Distribution Width 14.9 % (9.3-17.3); White Blood Count 9.1 T/CUMM (4-12)
[2019-04-21 20:14] LABS: PT Patient Result 10.8 SECS (9.6-12.2); Partial Thromboplastin Time 24.5 SECS (20.8-36.0)
[2019-04-21 20:29] LABS: Alanine Aminotransferase 17 U/L (13-56); Albumin 3.2 G/DL (3.4-5.0); Alkaline Phosphatase 67 U/L (45-117); Aspartate Amino Transferase 19 U/L (0-37); Bilirubin,Total < 0.39 MG/DL (0.2-1.0); Blood Urea Nitrogen 10 MG/DL (7-18); Calcium 8.9 MG/DL (8.5-10.1); Glucose 95 MG/DL (74-106); Osmolality,Calculated 279.3 MOS/KG (273-304); Total Protein 7.4 G/DL (6.4-8.3); Troponin I < 0.015 NG/ML (0.00-0.045)
[2019-04-21] MEDS ORDERED: NICOTINE 21 MG/24 HR PATCH TRANSDERM PRN (23:43)
[2019-04-22] MEDS ORDERED: LEVOFLOXACIN INJ 750 MG in PREMIX 1 EACH IV SCH
[2019-04-22] MEDS: ALBUTEROL/IPRATROPIUM 3 ML NEB RESP TX SCH ×4 (03:23→20:12)
[2019-04-22] MEDS: ACETAMINOPHEN 325 MG TABLET PO PRN ×3 (03:45→15:23)
[2019-04-22] MEDS ORDERED: amLODIPine 10 MG TABLET PO ONE (07:03)
[2019-04-22] MEDS: methylPREDNISolone SOD SUC 40 MG/1 ML VIAL IV SCH ×2 (07:04→15:24)
[2019-04-22] MEDS: ENOXAPARIN 40 MG/0.4 ML SYRINGE SUBCUT SCH (07:05)
[2019-04-22] MEDS: VANCOMYCIN INJ 1,250 MG in SODIUM CHLORIDE 0.9% 250 ML IV SCH ×2 (08:45→20:56)
[2019-04-22] MEDS ORDERED: PANTOPRAZOLE 40 MG TABLET PO SCH (09:00)
[2019-04-22] MEDS ORDERED: LOSARTAN 25 MG TABLET PO SCH (09:00)
[2019-04-22] MEDS: PIPERACILLIN/TAZOBACTAM 3,375 MG in SODIUM CHLORIDE 0.9% 100 ML IV SCH ×2 (09:48→16:52)
[2019-04-22] MEDS ORDERED: METHOCARBAMOL 750 MG TABLET PO PRN (15:54)
[2019-04-22] MEDS ORDERED: ACETAMINOPHEN 325 MG TABLET PO PRN (15:54)
[2019-04-22] MEDS ORDERED: MECLIZINE 25 MG TABLET PO PRN (15:54)
[2019-04-22] MEDS: SERTRALINE 25 MG TABLET PO SCH (16:52)
[2019-04-22] MEDS: clonazePAM 0.5 MG TABLET PO PRN (21:01)
[2019-04-22] MEDS: PANTOPRAZOLE 40 MG TABLET PO SCH (21:01)
[2019-04-22] MEDS: MONTELUKAST 10 MG TABLET PO SCH (21:01)
[2019-04-22] MEDS: rOPINIRole 0.25 MG TABLET PO SCH (21:01)
[2019-04-23] MEDS: PIPERACILLIN/TAZOBACTAM 3,375 MG in SODIUM CHLORIDE 0.9% 100 ML IV SCH ×3 (00:24→17:05)
[2019-04-23] MEDS: methylPREDNISolone SOD SUC 40 MG/1 ML VIAL IV SCH ×4 (00:24→23:10)
[2019-04-23] MEDS: ALBUTEROL/IPRATROPIUM 3 ML NEB RESP TX SCH ×4 (01:35→20:39)
[2019-04-23 05:48] LABS: Basophils % 0.1 % (0.0-0.8); Hematocrit 33.5 VOL% (35.7-47.0); Hemoglobin 10.1 GM/DL (12.0-16.0); Immature Granulocytes % 1.2 %; Immature Granulocytes Absolute 0.17 #; Lymphocytes # 0.6 10*3/uL (1.4-4.0); Lymphocytes % 4.1 % (21.3-54.2); Mean Corpuscular HGB Conc 30.1 GM/DL (32-36); Mean Corpuscular Volume 97.4 FL (87-102); Monocytes % 1.8 % (1.7-12.7); Neutrophils % 92.8 % (38.7-73.9); Platelet Count 329 T/CUMM (130-400); Red Blood Count 3.44 MC/CUMM (3.8-5.5); White Blood Count 14.7 T/CUMM (4-12)
[2019-04-23 06:16] LABS: Band Neutrophils 1 % (0-10); Hypochromasia 1+; Lymphocytes 5 % (20-55); Microcytosis 1+; Platelet Estimate Normal; Segmented Neutrophils 92 % (50-85); Total Cells Counted 100
[2019-04-23 06:21] LABS: Calcium 8.7 MG/DL (8.5-10.1); Osmolality,Calculated 286.3 MOS/KG (273-304)
[2019-04-23] MEDS: ENOXAPARIN 40 MG/0.4 ML SYRINGE SUBCUT SCH (06:22)
[2019-04-23] MEDS: LEVOTHYROXINE 112 MCG TABLET PO SCH (06:23)
[2019-04-23] MEDS: LISINOPRIL 10 MG TABLET PO SCH (08:48)
[2019-04-23] MEDS: FERROUS SULFATE 325 MG TABLET PO SCH (08:48)
[2019-04-23] MEDS: rOPINIRole 0.25 MG TABLET PO SCH ×3 (08:48→20:33)
[2019-04-23] MEDS: SERTRALINE 25 MG TABLET PO SCH (08:48)
[2019-04-23] MEDS: ISOSORBIDE MONONITRATE 30 MG TABLET PO SCH (08:49)
[2019-04-23] MEDS: PANTOPRAZOLE 40 MG TABLET PO SCH ×2 (08:49→20:33)
[2019-04-23] MEDS: CLOPIDOGREL 75 MG TABLET PO SCH (08:49)
[2019-04-23] MEDS: VANCOMYCIN INJ 1,250 MG in SODIUM CHLORIDE 0.9% 250 ML IV SCH ×2 (08:51→20:34)
[2019-04-23] MEDS: ONDANSETRON 4 MG/2 ML VIAL IV PRN (12:13)
[2019-04-23] MEDS: ACETAMINOPHEN 325 MG TABLET PO PRN (14:05)
[2019-04-23] MEDS: MONTELUKAST 10 MG TABLET PO SCH (20:33)
[2019-04-24] MEDS: ONDANSETRON 4 MG/2 ML VIAL IV PRN ×3 (00:23→18:18)
[2019-04-24] MEDS: ALBUTEROL/IPRATROPIUM 3 ML NEB RESP TX SCH ×5 (00:31→23:51)
[2019-04-24] MEDS: PIPERACILLIN/TAZOBACTAM 3,375 MG in SODIUM CHLORIDE 0.9% 100 ML IV SCH ×3 (01:28→16:08)
[2019-04-24] MEDS ORDERED: ALBUTEROL/IPRATROPIUM 3 ML NEB RESP TX PRN (03:46)
[2019-04-24] MEDS: ACETAMINOPHEN 325 MG TABLET PO PRN ×2 (03:55→11:48)
[2019-04-24] MEDS: LEVOTHYROXINE 112 MCG TABLET PO SCH (05:37)
[2019-04-24] MEDS: methylPREDNISolone SOD SUC 40 MG/1 ML VIAL IV SCH ×2 (06:23→16:09)
[2019-04-24] MEDS: ENOXAPARIN 40 MG/0.4 ML SYRINGE SUBCUT SCH (06:23)
[2019-04-24 08:42] LABS: Basophils % 0.2 % (0.0-0.8); Hematocrit 35.9 VOL% (35.7-47.0); Hemoglobin 10.7 GM/DL (12.0-16.0); Immature Granulocytes % 2.3 %; Immature Granulocytes Absolute 0.39 #; Lymphocytes # 0.7 10*3/uL (1.4-4.0); Lymphocytes % 4.1 % (21.3-54.2); Mean Corpuscular HGB Conc 29.8 GM/DL (32-36); Mean Corpuscular Volume 97.6 FL (87-102); Mean Platelet Volume 11.2 FL (9.6-12.0); Monocytes % 3.5 % (1.7-12.7); Neutrophils % 89.9 % (38.7-73.9); Platelet Count 348 T/CUMM (130-400); Red Blood Count 3.68 MC/CUMM (3.8-5.5); White Blood Count 17.2 T/CUMM (4-12)
[2019-04-24] MEDS: FERROUS SULFATE 325 MG TABLET PO SCH (08:59)
[2019-04-24] MEDS: ISOSORBIDE MONONITRATE 30 MG TABLET PO SCH (08:59)
[2019-04-24] MEDS: rOPINIRole 0.25 MG TABLET PO SCH ×3 (08:59→21:07)
[2019-04-24] MEDS: CLOPIDOGREL 75 MG TABLET PO SCH (08:59)
[2019-04-24] MEDS: SERTRALINE 25 MG TABLET PO SCH (08:59)
[2019-04-24] MEDS: LISINOPRIL 10 MG TABLET PO SCH (08:59)
[2019-04-24] MEDS: PANTOPRAZOLE 40 MG TABLET PO SCH ×2 (08:59→21:06)
[2019-04-24 09:00] LABS: Hypochromasia Slight; Lymphocytes 5 % (20-55); Platelet Estimate Adequate; Segmented Neutrophils 93 % (50-85); Total Cells Counted 100
[2019-04-24 09:01] LABS: Microcytosis 1+
[2019-04-24 09:05] LABS: Calcium 9.2 MG/DL (8.5-10.1); Osmolality,Calculated 289.1 MOS/KG (273-304)
[2019-04-24] MEDS: VANCOMYCIN INJ 1,250 MG in SODIUM CHLORIDE 0.9% 250 ML IV SCH (09:08)
[2019-04-24] MEDS: ALBUTEROL 2 MG TABLET PO SCH ×2 (11:48→21:07)
[2019-04-24] MEDS: MONTELUKAST 10 MG TABLET PO SCH (21:07)
[2019-04-24] MEDS: clonazePAM 0.5 MG TABLET PO PRN (21:11)
[2019-04-25] MEDS: methylPREDNISolone SOD SUC 40 MG/1 ML VIAL IV SCH ×3 (00:51→16:54)
[2019-04-25] MEDS: PIPERACILLIN/TAZOBACTAM 3,375 MG in SODIUM CHLORIDE 0.9% 100 ML IV SCH ×2 (00:57→09:25)
[2019-04-25] MEDS: ONDANSETRON 4 MG/2 ML VIAL IV PRN (02:48)
[2019-04-25] MEDS: LEVOTHYROXINE 112 MCG TABLET PO SCH (05:42)
[2019-04-25] MEDS: ACETAMINOPHEN 325 MG TABLET PO PRN ×3 (05:42→14:27)
[2019-04-25 06:25] LABS: Calcium 8.6 MG/DL (8.5-10.1); Osmolality,Calculated 288.3 MOS/KG (273-304)
[2019-04-25 06:28] LABS: Basophils % 0.1 % (0.0-0.8); Hematocrit 32.5 VOL% (35.7-47.0); Hemoglobin 9.9 GM/DL (12.0-16.0); Immature Granulocytes % 2.6 %; Immature Granulocytes Absolute 0.38 #; Lymphocytes # 0.5 10*3/uL (1.4-4.0); Lymphocytes % 3.2 % (21.3-54.2); Mean Corpuscular HGB Conc 30.5 GM/DL (32-36); Mean Corpuscular Volume 96.7 FL (87-102); Mean Platelet Volume 11.5 FL (9.6-12.0); Monocytes % 4.2 % (1.7-12.7); NRBC # 0.02 10*3/uL; Neutrophils % 89.9 % (38.7-73.9); Platelet Count 286 T/CUMM (130-400); Red Blood Count 3.36 MC/CUMM (3.8-5.5); Red Cell Distribution Width 15.2 % (9.3-17.3); White Blood Count 14.8 T/CUMM (4-12)
[2019-04-25 06:40] LABS: Band Neutrophils 1 % (0-10); Lymphocytes 2 % (20-55); Segmented Neutrophils 93 % (50-85); Total Cells Counted 100
[2019-04-25 06:41] LABS: Hypochromasia 1+; Microcytosis Slight; Platelet Estimate Adequate
[2019-04-25] MEDS: ALBUTEROL/IPRATROPIUM 3 ML NEB RESP TX SCH ×3 (07:19→19:19)
[2019-04-25] MEDS: ENOXAPARIN 40 MG/0.4 ML SYRINGE SUBCUT SCH (09:15)
[2019-04-25] MEDS: rOPINIRole 0.25 MG TABLET PO SCH ×3 (09:17→20:49)
[2019-04-25] MEDS: LISINOPRIL 10 MG TABLET PO SCH (09:17)
[2019-04-25] MEDS: ISOSORBIDE MONONITRATE 30 MG TABLET PO SCH (09:18)
[2019-04-25] MEDS: SERTRALINE 25 MG TABLET PO SCH (09:19)
[2019-04-25] MEDS: FERROUS SULFATE 325 MG TABLET PO SCH (09:19)
[2019-04-25] MEDS: CLOPIDOGREL 75 MG TABLET PO SCH (09:21)
[2019-04-25] MEDS: ALBUTEROL 2 MG TABLET PO SCH ×2 (09:23→20:50)
[2019-04-25] MEDS: PANTOPRAZOLE 40 MG TABLET PO SCH ×2 (09:24→20:50)
[2019-04-25] MEDS: DORNASE ALFA 2.5 MG/2.5 ML VIAL RESP TX SCH ×2 (10:41→19:25)
[2019-04-25] MEDS: cefTRIAXone 1,000 MG in SYRINGE 1 EACH IV SCH (11:39)
[2019-04-25] MEDS: guaiFENesin 200 MG/10 ML UDCUP PO PRN (16:53)
[2019-04-25] MEDS: clonazePAM 0.5 MG TABLET PO PRN (20:49)
[2019-04-25] MEDS: MONTELUKAST 10 MG TABLET PO SCH (20:50)
[2019-04-25] MEDS: BENZONATATE 100 MG CAPSULE PO PRN (20:56)
[2019-04-26] MEDS: ALBUTEROL/IPRATROPIUM 3 ML NEB RESP TX SCH ×4 (00:11→20:17)
[2019-04-26] MEDS: methylPREDNISolone SOD SUC 40 MG/1 ML VIAL IV SCH ×3 (00:29→17:20)
[2019-04-26] MEDS: guaiFENesin 200 MG/10 ML UDCUP PO PRN ×2 (01:20→12:01)
[2019-04-26] MEDS: ONDANSETRON 4 MG/2 ML VIAL IV PRN ×2 (02:59→09:46)
[2019-04-26] MEDS: LEVOTHYROXINE 112 MCG TABLET PO SCH (06:03)
[2019-04-26 06:11] LABS: Basophils % 0.2 % (0.0-0.8); Hematocrit 33.5 VOL% (35.7-47.0); Hemoglobin 10.2 GM/DL (12.0-16.0); Immature Granulocytes % 2.8 %; Immature Granulocytes Absolute 0.38 #; Lymphocytes # 0.5 10*3/uL (1.4-4.0); Mean Corpuscular HGB Conc 30.4 GM/DL (32-36); Mean Corpuscular Volume 97.7 FL (87-102); Mean Platelet Volume 11.4 FL (9.6-12.0); Monocytes % 4.8 % (1.7-12.7); NRBC # 0.02 10*3/uL; Neutrophils % 88.2 % (38.7-73.9); Platelet Count 277 T/CUMM (130-400); Red Blood Count 3.43 MC/CUMM (3.8-5.5); Red Cell Distribution Width 15.3 % (9.3-17.3); White Blood Count 13.4 T/CUMM (4-12)
[2019-04-26 06:16] LABS: Calcium 8.9 MG/DL (8.5-10.1); Osmolality,Calculated 285.3 MOS/KG (273-304)
[2019-04-26 06:33] LABS: Lymphocytes 3 % (20-55); Platelet Estimate Adequate; Segmented Neutrophils 92 % (50-85); Total Cells Counted 100
[2019-04-26 06:34] LABS: Hypochromasia 1+; Microcytosis Slight
[2019-04-26] MEDS: DORNASE ALFA 2.5 MG/2.5 ML VIAL RESP TX SCH ×2 (07:00→20:17)
[2019-04-26] MEDS: rOPINIRole 0.25 MG TABLET PO SCH ×3 (08:58→21:11)
[2019-04-26] MEDS: ALBUTEROL 2 MG TABLET PO SCH ×3 (08:59→21:12)
[2019-04-26] MEDS: SERTRALINE 25 MG TABLET PO SCH (08:59)
[2019-04-26] MEDS: ISOSORBIDE MONONITRATE 30 MG TABLET PO SCH (08:59)
[2019-04-26] MEDS: PANTOPRAZOLE 40 MG TABLET PO SCH ×2 (09:00→21:21)
[2019-04-26] MEDS: FERROUS SULFATE 325 MG TABLET PO SCH (09:00)
[2019-04-26] MEDS: LISINOPRIL 10 MG TABLET PO SCH (09:00)
[2019-04-26] MEDS: cefTRIAXone 1,000 MG in SYRINGE 1 EACH IV SCH (09:00)
[2019-04-26] MEDS: CLOPIDOGREL 75 MG TABLET PO SCH (09:00)
[2019-04-26] MEDS: ENOXAPARIN 40 MG/0.4 ML SYRINGE SUBCUT SCH (09:00)
[2019-04-26] MEDS: BENZONATATE 100 MG CAPSULE PO PRN ×2 (09:46→18:27)
[2019-04-26] MEDS ORDERED: AMINOPHYLLINE 250 MG in SODIUM CHLORIDE 0.9% 100 ML IV ONE (11:00)
[2019-04-26] MEDS: clonazePAM 0.5 MG TABLET PO PRN ×2 (11:33→21:12)
[2019-04-26] MEDS ORDERED: hydrALAZINE 20 MG/1 ML VIAL IV PRN (12:08)
[2019-04-26] MEDS: AMINOPHYLLINE 500 MG in SODIUM CHLORIDE 0.9% 480 ML IV SCH (15:46)
[2019-04-26] MEDS: guaiFENesin/CODEINE 5 ML LIQUID PO PRN ×2 (16:09→23:07)
[2019-04-26] MEDS: MONTELUKAST 10 MG TABLET PO SCH (21:21)
[2019-04-27] MEDS: ALBUTEROL/IPRATROPIUM 3 ML NEB RESP TX SCH ×4 (01:33→19:28)
[2019-04-27] MEDS: methylPREDNISolone SOD SUC 40 MG/1 ML VIAL IV SCH ×3 (01:55→16:36)
[2019-04-27] MEDS: ACETAMINOPHEN 325 MG TABLET PO PRN ×2 (02:05→18:16)
[2019-04-27] MEDS: ONDANSETRON 4 MG/2 ML VIAL IV PRN (04:28)
[2019-04-27 05:28] LABS: Basophils % 0.1 % (0.0-0.8); Hematocrit 34.9 VOL% (35.7-47.0); Hemoglobin 10.6 GM/DL (12.0-16.0); Immature Granulocytes % 2.8 %; Immature Granulocytes Absolute 0.38 #; Lymphocytes # 0.4 10*3/uL (1.4-4.0); Lymphocytes % 3.3 % (21.3-54.2); Mean Corpuscular HGB Conc 30.4 GM/DL (32-36); Mean Corpuscular Volume 96.9 FL (87-102); Monocytes % 4.9 % (1.7-12.7); NRBC # 0.03 10*3/uL; Neutrophils % 88.9 % (38.7-73.9); Platelet Count 287 T/CUMM (130-400); Red Cell Distribution Width 15.2 % (9.3-17.3); White Blood Count 13.4 T/CUMM (4-12)
[2019-04-27 05:40] LABS: Calcium 8.5 MG/DL (8.5-10.1); Osmolality,Calculated 288.3 MOS/KG (273-304)
[2019-04-27 05:49] LABS: Hypochromasia 1+; Lymphocytes 4 % (20-55); Microcytosis Slight; Platelet Estimate Adequate; Segmented Neutrophils 89 % (50-85); Total Cells Counted 100
[2019-04-27] MEDS: LEVOTHYROXINE 112 MCG TABLET PO SCH (07:08)
[2019-04-27] MEDS: DORNASE ALFA 2.5 MG/2.5 ML VIAL RESP TX SCH ×2 (07:33→19:28)
[2019-04-27] MEDS: rOPINIRole 0.25 MG TABLET PO SCH ×3 (09:45→21:16)
[2019-04-27] MEDS: LISINOPRIL 10 MG TABLET PO SCH (09:45)
[2019-04-27] MEDS: FERROUS SULFATE 325 MG TABLET PO SCH (09:46)
[2019-04-27] MEDS: PANTOPRAZOLE 40 MG TABLET PO SCH ×2 (09:46→21:17)
[2019-04-27] MEDS: SERTRALINE 25 MG TABLET PO SCH (09:46)
[2019-04-27] MEDS: CLOPIDOGREL 75 MG TABLET PO SCH (09:46)
[2019-04-27] MEDS: ALBUTEROL 2 MG TABLET PO SCH ×3 (09:46→21:16)
[2019-04-27] MEDS: ISOSORBIDE MONONITRATE 30 MG TABLET PO SCH (09:46)
[2019-04-27] MEDS: ENOXAPARIN 40 MG/0.4 ML SYRINGE SUBCUT SCH (09:47)
[2019-04-27] MEDS: clonazePAM 0.5 MG TABLET PO PRN (11:29)
[2019-04-27] MEDS: THEOPHYLLINE ER 300 MG TABLET PO SCH ×2 (11:29→16:35)
[2019-04-27] MEDS: cefTRIAXone 1,000 MG in SYRINGE 1 EACH IV SCH (11:31)
[2019-04-27] MEDS: AMINOPHYLLINE 500 MG in SODIUM CHLORIDE 0.9% 480 ML IV SCH (15:34)
[2019-04-27] MEDS: MONTELUKAST 10 MG TABLET PO SCH (21:16)
[2019-04-27] MEDS: guaiFENesin/CODEINE 5 ML LIQUID PO PRN (21:19)
[2019-04-28] MEDS: methylPREDNISolone SOD SUC 40 MG/1 ML VIAL IV SCH ×3 (01:13→17:31)
[2019-04-28] MEDS: ALBUTEROL/IPRATROPIUM 3 ML NEB RESP TX SCH ×4 (01:41→19:50)
[2019-04-28] MEDS: ONDANSETRON 4 MG/2 ML VIAL IV PRN (05:00)
[2019-04-28] MEDS: LEVOTHYROXINE 112 MCG TABLET PO SCH ×2 (05:04→07:12)
[2019-04-28 05:45] LABS: Basophils % 0.1 % (0.0-0.8); Hematocrit 34.8 VOL% (35.7-47.0); Hemoglobin 10.5 GM/DL (12.0-16.0); Immature Granulocytes % 2.6 %; Immature Granulocytes Absolute 0.36 #; Lymphocytes # 0.3 10*3/uL (1.4-4.0); Mean Corpuscular HGB Conc 30.2 GM/DL (32-36); Mean Corpuscular Volume 96.9 FL (87-102); Mean Platelet Volume 12.2 FL (9.6-12.0); Monocytes % 5.5 % (1.7-12.7); NRBC # 0.02 10*3/uL; Neutrophils % 89.8 % (38.7-73.9); Platelet Count 263 T/CUMM (130-400); Red Blood Count 3.59 MC/CUMM (3.8-5.5); Red Cell Distribution Width 15.4 % (9.3-17.3); White Blood Count 14.1 T/CUMM (4-12)
[2019-04-28 06:05] LABS: Hypochromasia 1+; Lymphocytes 4 % (20-55); Microcytosis Slight; Platelet Estimate Adequate; Segmented Neutrophils 91 % (50-85); Total Cells Counted 100
[2019-04-28 06:08] LABS: Calcium 8.5 MG/DL (8.5-10.1); Osmolality,Calculated 288.3 MOS/KG (273-304)
[2019-04-28] MEDS: DORNASE ALFA 2.5 MG/2.5 ML VIAL RESP TX SCH ×2 (07:15→19:50)
[2019-04-28] MEDS: SERTRALINE 25 MG TABLET PO SCH (09:40)
[2019-04-28] MEDS: cefTRIAXone 1,000 MG in SYRINGE 1 EACH IV SCH (09:40)
[2019-04-28] MEDS: ISOSORBIDE MONONITRATE 30 MG TABLET PO SCH (09:41)
[2019-04-28] MEDS: rOPINIRole 0.25 MG TABLET PO SCH ×3 (09:41→20:44)
[2019-04-28] MEDS: FERROUS SULFATE 325 MG TABLET PO SCH (09:41)
[2019-04-28] MEDS: LISINOPRIL 10 MG TABLET PO SCH (09:41)
[2019-04-28] MEDS: CLOPIDOGREL 75 MG TABLET PO SCH (09:41)
[2019-04-28] MEDS: THEOPHYLLINE ER 300 MG TABLET PO SCH ×2 (09:42→17:31)
[2019-04-28] MEDS: PANTOPRAZOLE 40 MG TABLET PO SCH ×2 (09:43→20:44)
[2019-04-28] MEDS: ENOXAPARIN 40 MG/0.4 ML SYRINGE SUBCUT SCH (09:43)
[2019-04-28] MEDS: ALBUTEROL 2 MG TABLET PO SCH ×3 (09:44→20:43)
[2019-04-28] MEDS: ACETAMINOPHEN 325 MG TABLET PO PRN (11:16)
[2019-04-28] MEDS: clonazePAM 0.5 MG TABLET PO PRN (18:45)
[2019-04-28] MEDS: DOCUSATE SODIUM 100 MG CAPSULE PO SCH ×2 (18:48→20:44)
[2019-04-28] MEDS: MONTELUKAST 10 MG TABLET PO SCH (20:43)
[2019-04-29] MEDS: ONDANSETRON 4 MG/2 ML VIAL IV PRN ×2 (00:37→09:27)
[2019-04-29] MEDS: ALBUTEROL/IPRATROPIUM 3 ML NEB RESP TX SCH ×4 (00:44→19:15)
[2019-04-29] MEDS: ACETAMINOPHEN 325 MG TABLET PO PRN ×2 (00:45→20:32)
[2019-04-29 05:03] LABS: Basophils % 0.2 % (0.0-0.8); Hematocrit 36.6 VOL% (35.7-47.0); Hemoglobin 11.1 GM/DL (12.0-16.0); Immature Granulocytes % 3.8 %; Immature Granulocytes Absolute 0.61 #; Lymphocytes # 0.7 10*3/uL (1.4-4.0); Lymphocytes % 4.3 % (21.3-54.2); Mean Corpuscular HGB Conc 30.3 GM/DL (32-36); Mean Corpuscular Volume 96.1 FL (87-102); Monocytes % 8.4 % (1.7-12.7); NRBC # 0.05 10*3/uL; Neutrophils % 83.3 % (38.7-73.9); Platelet Count 280 T/CUMM (130-400); Red Blood Count 3.81 MC/CUMM (3.8-5.5); Red Cell Distribution Width 15.6 % (9.3-17.3); White Blood Count 15.9 T/CUMM (4-12)
[2019-04-29 05:28] LABS: Osmolality,Calculated 287.1 MOS/KG (273-304)
[2019-04-29] MEDS: methylPREDNISolone SOD SUC 40 MG/1 ML VIAL IV SCH ×3 (05:39→21:19)
[2019-04-29 06:08] LABS: Lymphocytes 10 % (20-55); Nucleated Red Blood Cells 2 (0-5); Segmented Neutrophils 83 % (50-85); Total Cells Counted 100
[2019-04-29 06:10] LABS: Anisocytosis 1+; Hypochromasia Slight; Platelet Estimate Adequate; Tear Drop Cells Few
[2019-04-29] MEDS: DORNASE ALFA 2.5 MG/2.5 ML VIAL RESP TX SCH ×2 (07:21→19:20)
[2019-04-29] MEDS: cefTRIAXone 1,000 MG in SYRINGE 1 EACH IV SCH (09:20)
[2019-04-29] MEDS: ENOXAPARIN 40 MG/0.4 ML SYRINGE SUBCUT SCH (09:20)
[2019-04-29] MEDS: LISINOPRIL 10 MG TABLET PO SCH (09:21)
[2019-04-29] MEDS: ALBUTEROL 2 MG TABLET PO SCH ×3 (09:21→20:33)
[2019-04-29] MEDS: rOPINIRole 0.25 MG TABLET PO SCH ×3 (09:21→20:34)
[2019-04-29] MEDS: THEOPHYLLINE ER 300 MG TABLET PO SCH ×2 (09:21→17:58)
[2019-04-29] MEDS: SERTRALINE 25 MG TABLET PO SCH (09:22)
[2019-04-29] MEDS: CLOPIDOGREL 75 MG TABLET PO SCH (09:23)
[2019-04-29] MEDS: PANTOPRAZOLE 40 MG TABLET PO SCH ×2 (09:23→20:34)
[2019-04-29] MEDS: ISOSORBIDE MONONITRATE 30 MG TABLET PO SCH (09:23)
[2019-04-29] MEDS: DOCUSATE SODIUM 100 MG CAPSULE PO SCH ×2 (09:23→20:33)
[2019-04-29] MEDS: FERROUS SULFATE 325 MG TABLET PO SCH (09:23)
[2019-04-29] MEDS: LEVOTHYROXINE 112 MCG TABLET PO SCH (09:23)
[2019-04-29] MEDS: guaiFENesin 200 MG/10 ML UDCUP PO PRN (17:58)
[2019-04-29] MEDS: MONTELUKAST 10 MG TABLET PO SCH (20:33)
[2019-04-29] MEDS: clonazePAM 0.5 MG TABLET PO PRN (23:20)
[2019-04-30] MEDS: ALBUTEROL/IPRATROPIUM 3 ML NEB RESP TX SCH ×4 (01:30→18:56)
[2019-04-30] MEDS: ONDANSETRON 4 MG/2 ML VIAL IV PRN (05:16)
[2019-04-30] MEDS: methylPREDNISolone SOD SUC 40 MG/1 ML VIAL IV SCH ×3 (05:18→22:47)
[2019-04-30 06:20] LABS: Basophils % 0.3 % (0.0-0.8); Immature Granulocytes % 2.7 %; Immature Granulocytes Absolute 0.38 #; Lymphocytes # 0.6 10*3/uL (1.4-4.0); Lymphocytes % 4.4 % (21.3-54.2); Mean Corpuscular HGB Conc 30.6 GM/DL (32-36); Mean Corpuscular Volume 96.5 FL (87-102); Mean Platelet Volume 12.2 FL (9.6-12.0); Monocytes % 6.3 % (1.7-12.7); Neutrophils % 86.3 % (38.7-73.9); Platelet Count 226 T/CUMM (130-400); Red Blood Count 3.73 MC/CUMM (3.8-5.5); Red Cell Distribution Width 15.6 % (9.3-17.3); White Blood Count 14.2 T/CUMM (4-12)
[2019-04-30] MEDS: LEVOTHYROXINE 112 MCG TABLET PO SCH (06:22)
[2019-04-30 06:50] LABS: Anisocytosis 1+; Band Neutrophils 1 % (0-10); Lymphocytes 6 % (20-55); Segmented Neutrophils 92 % (50-85); Total Cells Counted 100
[2019-04-30 06:51] LABS: Hypochromasia Slight; Platelet Estimate Adequate
[2019-04-30 06:53] LABS: Calcium 8.4 MG/DL (8.5-10.1); Osmolality,Calculated 282.7 MOS/KG (273-304)
[2019-04-30] MEDS: DORNASE ALFA 2.5 MG/2.5 ML VIAL RESP TX SCH ×2 (07:26→18:56)
[2019-04-30] MEDS: FERROUS SULFATE 325 MG TABLET PO SCH (09:18)
[2019-04-30] MEDS: cefTRIAXone 1,000 MG in SYRINGE 1 EACH IV SCH (09:18)
[2019-04-30] MEDS: ENOXAPARIN 40 MG/0.4 ML SYRINGE SUBCUT SCH (09:18)
[2019-04-30] MEDS: THEOPHYLLINE ER 300 MG TABLET PO SCH ×2 (09:19→17:37)
[2019-04-30] MEDS: LISINOPRIL 10 MG TABLET PO SCH (09:19)
[2019-04-30] MEDS: SERTRALINE 25 MG TABLET PO SCH (09:19)
[2019-04-30] MEDS: rOPINIRole 0.25 MG TABLET PO SCH ×3 (09:19→21:00)
[2019-04-30] MEDS: DOCUSATE SODIUM 100 MG CAPSULE PO SCH ×2 (09:20→20:59)
[2019-04-30] MEDS: CLOPIDOGREL 75 MG TABLET PO SCH (09:20)
[2019-04-30] MEDS: PANTOPRAZOLE 40 MG TABLET PO SCH ×2 (09:20→21:00)
[2019-04-30] MEDS: ISOSORBIDE MONONITRATE 30 MG TABLET PO SCH (09:20)
[2019-04-30] MEDS: ALBUTEROL 2 MG TABLET PO SCH ×3 (09:20→20:59)
[2019-04-30] MEDS ORDERED: FAMOTIDINE 20 MG TABLET PO ONE ×2 (09:34→22:42)
[2019-04-30] MEDS ORDERED: BISMUTH SUBSALICYLATE 30 ML/524 MG 240 ML/BOTTLE PO PRN (09:35)
[2019-04-30] MEDS: ACETAMINOPHEN 325 MG TABLET PO PRN ×2 (17:37→22:48)
[2019-04-30] MEDS: MONTELUKAST 10 MG TABLET PO SCH (20:59)
[2019-05-01] MEDS: ALBUTEROL/IPRATROPIUM 3 ML NEB RESP TX SCH ×4 (00:01→19:21)
[2019-05-01] MEDS: ONDANSETRON 4 MG/2 ML VIAL IV PRN (05:12)
[2019-05-01 05:39] LABS: Basophils # 0.1 10*3/uL (0.0-0.2); Basophils % 0.4 % (0.0-0.8); Hematocrit 37.5 VOL% (35.7-47.0); Hemoglobin 11.2 GM/DL (12.0-16.0); Immature Granulocytes % 3.7 %; Immature Granulocytes Absolute 0.51 #; Lymphocytes # 0.4 10*3/uL (1.4-4.0); Lymphocytes % 2.8 % (21.3-54.2); Mean Corpuscular HGB Conc 29.9 GM/DL (32-36); Mean Corpuscular Volume 97.9 FL (87-102); Mean Platelet Volume 12.1 FL (9.6-12.0); Monocytes % 4.7 % (1.7-12.7); Neutrophils % 88.4 % (38.7-73.9); Platelet Count 229 T/CUMM (130-400); Red Blood Count 3.83 MC/CUMM (3.8-5.5); Red Cell Distribution Width 15.8 % (9.3-17.3); White Blood Count 13.8 T/CUMM (4-12)
[2019-05-01 06:06] LABS: Calcium 8.7 MG/DL (8.5-10.1); Osmolality,Calculated 286.5 MOS/KG (273-304)
[2019-05-01 06:10] LABS: Band Neutrophils 1 % (0-10); Hypochromasia 1+; Lymphocytes 2 % (20-55); Microcytosis Slight; Ovalocytes Slight; Segmented Neutrophils 95 % (50-85); Total Cells Counted 100
[2019-05-01 06:11] LABS: Platelet Estimate Normal
[2019-05-01] MEDS: LEVOTHYROXINE 112 MCG TABLET PO SCH (06:12)
[2019-05-01] MEDS: methylPREDNISolone SOD SUC 40 MG/1 ML VIAL IV SCH ×3 (06:19→21:24)
[2019-05-01] MEDS: DORNASE ALFA 2.5 MG/2.5 ML VIAL RESP TX SCH ×2 (07:12→19:21)
[2019-05-01] MEDS: DOCUSATE SODIUM 100 MG CAPSULE PO SCH ×2 (08:37→21:20)
[2019-05-01] MEDS: PANTOPRAZOLE 40 MG TABLET PO SCH (08:37)
[2019-05-01] MEDS: SERTRALINE 25 MG TABLET PO SCH (08:37)
[2019-05-01] MEDS: FERROUS SULFATE 325 MG TABLET PO SCH (08:37)
[2019-05-01] MEDS: LISINOPRIL 10 MG TABLET PO SCH (08:37)
[2019-05-01] MEDS: ISOSORBIDE MONONITRATE 30 MG TABLET PO SCH (08:38)
[2019-05-01] MEDS: CLOPIDOGREL 75 MG TABLET PO SCH (08:38)
[2019-05-01] MEDS: rOPINIRole 0.25 MG TABLET PO SCH ×3 (08:38→21:21)
[2019-05-01] MEDS: THEOPHYLLINE ER 300 MG TABLET PO SCH ×2 (08:38→18:02)
[2019-05-01] MEDS: ENOXAPARIN 40 MG/0.4 ML SYRINGE SUBCUT SCH (08:39)
[2019-05-01] MEDS: ALBUTEROL 2 MG TABLET PO SCH ×3 (08:39→21:21)
[2019-05-01] MEDS: cefTRIAXone 1,000 MG in SYRINGE 1 EACH IV SCH (08:39)
[2019-05-01] MEDS: FAMOTIDINE 20 MG TABLET PO SCH (11:08)
[2019-05-01] MEDS: ACETAMINOPHEN 325 MG TABLET PO PRN ×2 (13:12→21:21)
[2019-05-01] MEDS: MONTELUKAST 10 MG TABLET PO SCH (21:21)
[2019-05-02] MEDS: ALBUTEROL/IPRATROPIUM 3 ML NEB RESP TX SCH ×3 (01:04→13:45)
[2019-05-02] MEDS: ONDANSETRON 4 MG/2 ML VIAL IV PRN (02:12)
[2019-05-02] MEDS: methylPREDNISolone SOD SUC 40 MG/1 ML VIAL IV SCH ×2 (05:31→14:04)
[2019-05-02] MEDS: LEVOTHYROXINE 112 MCG TABLET PO SCH (05:35)
[2019-05-02 06:05] LABS: Basophils # 0.1 10*3/uL (0.0-0.2); Basophils % 0.4 % (0.0-0.8); Hemoglobin 12.1 GM/DL (12.0-16.0); Immature Granulocytes % 4.2 %; Lymphocytes # 0.7 10*3/uL (1.4-4.0); Lymphocytes % 4.4 % (21.3-54.2); Mean Corpuscular HGB Conc 30.3 GM/DL (32-36); Mean Corpuscular Volume 96.6 FL (87-102); Mean Platelet Volume 12.2 FL (9.6-12.0); Monocytes % 6.1 % (1.7-12.7); Neutrophils % 84.9 % (38.7-73.9); Platelet Count 258 T/CUMM (130-400); Red Blood Count 4.14 MC/CUMM (3.8-5.5); Red Cell Distribution Width 15.8 % (9.3-17.3); White Blood Count 16.5 T/CUMM (4-12)
[2019-05-02 06:26] LABS: Calcium 8.9 MG/DL (8.5-10.1); Osmolality,Calculated 284.7 MOS/KG (273-304)
[2019-05-02 06:30] LABS: Hypochromasia 1+; Lymphocytes 6 % (20-55); Microcytosis Slight; Platelet Estimate Adequate; Segmented Neutrophils 93 % (50-85); Total Cells Counted 100
[2019-05-02] MEDS: DORNASE ALFA 2.5 MG/2.5 ML VIAL RESP TX SCH (07:00)
[2019-05-02] MEDS: ENOXAPARIN 40 MG/0.4 ML SYRINGE SUBCUT SCH (08:57)
[2019-05-02] MEDS: rOPINIRole 0.25 MG TABLET PO SCH ×2 (08:57→16:24)
[2019-05-02] MEDS: FAMOTIDINE 20 MG TABLET PO SCH (08:58)
[2019-05-02] MEDS: SERTRALINE 25 MG TABLET PO SCH (08:58)
[2019-05-02] MEDS: LISINOPRIL 10 MG TABLET PO SCH (08:58)
[2019-05-02] MEDS: ALBUTEROL 2 MG TABLET PO SCH ×2 (08:58→16:24)
[2019-05-02] MEDS: THEOPHYLLINE ER 300 MG TABLET PO SCH (08:58)
[2019-05-02] MEDS: CLOPIDOGREL 75 MG TABLET PO SCH (08:58)
[2019-05-02] MEDS: FERROUS SULFATE 325 MG TABLET PO SCH (08:58)
[2019-05-02] MEDS: ISOSORBIDE MONONITRATE 30 MG TABLET PO SCH (08:59)
[2019-05-02] MEDS: cefTRIAXone 1,000 MG in SYRINGE 1 EACH IV SCH (08:59)
[2019-05-02] MEDS: DOCUSATE SODIUM 100 MG CAPSULE PO SCH (08:59)
[2019-05-02 11:49] VITALS: BP 155/80
[2019-05-02] MEDS ORDERED: predniSONE 20 MG TABLET PO ONE (13:06)
== END 2019-05-02 15:57 | disposition home or self-care (01) | DRG 190 ==
LOC: N.ED 15:49 → N.EDINP 15:49 → SUATTDRO 23:43 → N.2E 04-22 02:57
PROVIDERS: ADMIT Internal Medicine; ATTEND Internal Medicine

== ENCOUNTER 2020-07-24 15:53 | Observation (INO) ==
[2020-07-24] MEDS ORDERED: ONDANSETRON 4 MG/2 ML VIAL IV STA (16:22)
[2020-07-24] MEDS ORDERED: SODIUM CHLORIDE 0.9% 1,000 ML IV STA (16:22)
[2020-07-24 17:01] LABS: Basophils % 0.2 % (0.0-0.8); Hematocrit 41.5 VOL% (35.7-47.0); Hemoglobin 13.3 GM/DL (12.0-16.0); Immature Granulocytes % 0.7 %; Immature Granulocytes Absolute 0.04 #; Lymphocytes # 0.6 10*3/uL (1.4-4.0); Lymphocytes % 10.6 % (21.3-54.2); Mean Corpuscular Volume 90.2 FL (87-102); Mean Platelet Volume 11.5 FL (9.6-12.0); Monocytes % 2.6 % (1.7-12.7); Neutrophils % 85.9 % (38.7-73.9); Platelet Count 197 T/CUMM (130-400); Red Cell Distribution Width 16.7 % (9.3-17.3); White Blood Count 5.5 T/CUMM (4-12)
[2020-07-24 17:37] LABS: Albumin 3.6 G/DL (3.4-5.0); Bilirubin,Total 0.9 MG/DL (0.2-1.0); Calcium 8.4 MG/DL (8.5-10.1); Ferritin 188.8 ng/ml (8-252); Osmolality,Calculated 274.7 MOS/KG (273-304); Total Protein 7.4 G/DL (6.4-8.3)
[2020-07-24 18:23] LABS: Bilirubin,Urine Small mg/dL (Negative); Blood, Urine Negative (Negative); Glucose,Urine (UA) Negative (Negative); Hyaline Casts,Urine 29 /LPF (0-3); Ketones,Urine 20 mg/dL (Negative); Mucus,Urine Occasional /LPF (Occasional); Nitrite,Urine Negative (Negative); Protein,Urine 30 MG/DL; RBC,Urine 1 /HPF (0-4); Squamous Epithelial Cell,Urine Occasional /HPF (0-10); Urine Appearance CLEAR (Clear); Urine Color Yellow (Yellow); Urine Specific Gravity 1.034 (1.001-1.035); Urine Urobilinogen < 2.0 EU/DL (0.2-1.0); WBC,Urine 1 /HPF (0-6)
[2020-07-24] MEDS ORDERED: DEXTROSE 50% 25 GM/50 ML VIAL IV PRN (18:38)
[2020-07-24] MEDS ORDERED: GLUCAGON 1 MG VIAL IM PRN (18:38)
[2020-07-24] MEDS ORDERED: ONDANSETRON 4 MG/2 ML VIAL IV PRN (18:38)
[2020-07-24] MEDS ORDERED: ZALEPLON 5 MG CAPSULE PO PRN (18:38)
[2020-07-24] MEDS ORDERED: PROMETHAZINE 25 MG TABLET PO PRN (18:38)
[2020-07-24] MEDS ORDERED: ALUMINUM/MAGNES/SIMETH MAX STR 30 ML UDCUP PO PRN (18:38)
[2020-07-24] MEDS ORDERED: LOPERAMIDE 2 MG CAPSULE PO PRN (20:31)
[2020-07-24] MEDS ORDERED: ENOXAPARIN 40 MG/0.4 ML SYRINGE SUBCUT SCH (21:00)
[2020-07-24] MEDS: DEXTROSE 5% NACL 0.45% 1,000 ML IV SCH (22:05)
[2020-07-24] MEDS: FAMOTIDINE 20 MG/2 ML VIAL IV SCH (22:05)
[2020-07-24] MEDS: ACETAMINOPHEN 325 MG TABLET PO PRN (23:20)
[2020-07-25] MEDS: ACETAMINOPHEN 325 MG TABLET PO PRN ×2 (04:50→09:57)
[2020-07-25 06:01] LABS: Basophils % 0.2 % (0.0-0.8); Eosinophils % 0.2 % (0.00-10.9); Hematocrit 33.6 VOL% (35.7-47.0); Hemoglobin 10.7 GM/DL (12.0-16.0); Immature Granulocytes % 0.6 %; Immature Granulocytes Absolute 0.03 #; Lymphocytes # 1.2 10*3/uL (1.4-4.0); Lymphocytes % 25.8 % (21.3-54.2); Mean Corpuscular HGB Conc 31.8 GM/DL (32-36); Mean Corpuscular Volume 91.8 FL (87-102); Mean Platelet Volume 11.4 FL (9.6-12.0); Monocytes % 6.1 % (1.7-12.7); Neutrophils % 67.1 % (38.7-73.9); Platelet Count 144 T/CUMM (130-400); Red Blood Count 3.66 MC/CUMM (3.8-5.5); Red Cell Distribution Width 16.7 % (9.3-17.3); White Blood Count 4.7 T/CUMM (4-12)
[2020-07-25 06:17] LABS: Albumin 2.9 G/DL (3.4-5.0); Bilirubin,Total 1.1 MG/DL (0.2-1.0); Calcium 7.8 MG/DL (8.5-10.1); Osmolality,Calculated 278.3 MOS/KG (273-304); Total Protein 6.1 G/DL (6.4-8.3)
[2020-07-25] MEDS: DEXTROSE 5% NACL 0.45% 1,000 ML IV SCH ×3 (07:09→10:00)
[2020-07-25 07:14] LABS: Band Neutrophils 2 % (0-10); Hypochromasia 1+; Lymphocytes 24 % (20-55); Microcytosis 1+; Segmented Neutrophils 70 % (50-85); Total Cells Counted 100
[2020-07-25 07:15] LABS: Platelet Estimate Adequate
[2020-07-25] MEDS: FAMOTIDINE 20 MG/2 ML VIAL IV SCH (08:28)
[2020-07-25] MEDS ORDERED: POTASSIUM CHLORIDE 20 MEQ TABLET PO ONE (08:30)
[2020-07-25] MEDS ORDERED: ASCORBIC ACID 500 MG TABLET PO SCH (09:00)
[2020-07-25] MEDS ORDERED: CHOLECALCIFEROL 1,000 UNIT TABLET PO SCH (09:00)
[2020-07-25] MEDS ORDERED: ZINC GLUCONATE 50 MG TABLET PO SCH (09:00)
[2020-07-25 11:35] VITALS: BP 149/78
== END 2020-07-25 14:20 | disposition home health service (06) ==
LOC: EDBD → EDUNIT# → N.ED 15:53 → N.EDINP 15:53 → N.2E 20:47
PROVIDERS: ADMIT Family Medicine; ATTEND Family Medicine

== ENCOUNTER 2021-02-18 11:00 | Inpatient (IN) ==
[2021-02-18] MEDS ORDERED: SODIUM CHLORIDE 0.9% 1,000 ML IV STA (11:24)
[2021-02-18] MEDS ORDERED: LEVOFLOXACIN 500 MG TABLET PO STA (11:25)
[2021-02-18 11:41] LABS: Basophils # 0.1 10*3/uL (0.0-0.2); Basophils % 0.2 % (0.0-0.8); Eosinophils # 0.5 10*3/uL (0.0-0.87); Eosinophils % 2.3 % (0.00-10.9); Hematocrit 37.1 VOL% (35.7-47.0); Hemoglobin 11.2 GM/DL (12.0-16.0); Immature Granulocytes % 0.8 %; Immature Granulocytes Absolute 0.19 #; Lymphocytes # 3.8 10*3/uL (1.4-4.0); Lymphocytes % 16.9 % (21.3-54.2); Mean Corpuscular HGB Conc 30.2 GM/DL (32-36); Mean Corpuscular Volume 92.5 FL (87-102); Monocytes % 7.3 % (1.7-12.7); Neutrophils % 72.5 % (38.7-73.9); Platelet Count 211 T/CUMM (130-400); Red Blood Count 4.01 MC/CUMM (3.8-5.5); Red Cell Distribution Width 16.8 % (9.3-17.3); White Blood Count 22.4 T/CUMM (4-12)
[2021-02-18 11:45] LABS: ABG Base Excess 3.4 MMOL/L (-2.5-2.5); ABG HCO3 30.4 MMOL/L (20-26); ABG Oxygen Saturation 95.1 % (95-100); ABG PCO2 58.4 MM HG (35-48); ABG PH 7.335 (7.35-7.45); ABG TCO2 32.2 MMOL/L (23-27)
[2021-02-18 11:49] LABS: PT Patient Result 11.6 SECS (10.5-12.0); Partial Thromboplastin Time 21.9 SECS (23.9-33.8)
[2021-02-18 11:58] LABS: Albumin 3.3 G/DL (3.4-5.0); Bilirubin,Total 0.5 MG/DL (0.20-1.00); Calcium 8.3 MG/DL (8.5-10.1); Osmolality,Calculated 283.3 MOS/KG (273-304); Potassium 4.4 MMOL/L (3.5-5.1); Total Protein 6.8 G/DL (6.4-8.2)
[2021-02-18 13:12] LABS: Bacteria,Urine Occasional /HPF (Few); Bilirubin,Urine Negative (Negative); Blood, Urine Negative (Negative); Glucose,Urine (UA) Negative (Negative); Ketones,Urine Negative (Negative); Mucus,Urine Many /LPF (Occasional); Nitrite,Urine Negative (Negative); Protein,Urine 30 MG/DL; RBC,Urine 2 /HPF (0-4); Squamous Epithelial Cell,Urine Occasional /HPF (0-10); Urine Appearance CLEAR (Clear); Urine Color Yellow (Yellow); Urine Specific Gravity 1.025 (1.001-1.035)
[2021-02-18] MEDS ORDERED: LEVOFLOXACIN INJ 500 MG/100 ML PREMIX IV STA (13:18)
[2021-02-18 13:38] LABS: Band Neutrophils 2 % (0-10); Eosinophils 3 % (0-10); Lymphocytes 25 % (20-55); Segmented Neutrophils 65 % (50-85); Total Cells Counted 100
[2021-02-18 13:39] LABS: Atypical Lymphocytes 1+; Microcytosis 1+; Platelet Estimate Normal
[2021-02-18] MEDS ORDERED: ALBUTEROL 2.5 MG/3 ML NEB RESP TX PRN (14:07)
[2021-02-18] MEDS ORDERED: ALBUTEROL/IPRATROPIUM 3 ML NEB RESP TX PRN (14:09)
[2021-02-18] MEDS ORDERED: AZITHROMYCIN INJ 250 MG in SODIUM CHLORIDE 0.9% 250 ML IV SCH (14:30)
[2021-02-18] MEDS: ENOXAPARIN 40 MG/0.4 ML SYRINGE SUBCUT SCH (21:05)
[2021-02-18] MEDS: FAMOTIDINE 20 MG/2 ML VIAL IV SCH (21:05)
[2021-02-18] MEDS: methylPREDNISolone SOD SUC 40 MG/1 ML VIAL IV SCH (21:05)
[2021-02-18 23:52] LABS: ABG Base Excess 0.8 MMOL/L (-2.5-2.5); ABG Oxygen Saturation 89.6 % (95-100); ABG PCO2 44.8 MM HG (35-48); ABG PH 7.377 (7.35-7.45); ABG PO2 57.2 MM HG (80-95); ABG TCO2 23.7 MMOL/L (23-27)
[2021-02-19 03:55] LABS: ABG Base Excess 2.1 MMOL/L (-2.5-2.5); ABG HCO3 27.3 MMOL/L (20-26); ABG Oxygen Saturation 95.6 % (95-100); ABG PCO2 45.3 MM HG (35-48); ABG PH 7.398 (7.35-7.45); ABG PO2 78.8 MM HG (80-95); ABG TCO2 28.7 MMOL/L (23-27)
[2021-02-19 05:43] LABS: Basophils % 0.1 % (0.0-0.8); Hematocrit 37.3 VOL% (35.7-47.0); Hemoglobin 11.3 GM/DL (12.0-16.0); Immature Granulocytes % 0.6 %; Immature Granulocytes Absolute 0.13 #; Lymphocytes # 0.8 10*3/uL (1.4-4.0); Lymphocytes % 3.8 % (21.3-54.2); Mean Corpuscular HGB Conc 30.3 GM/DL (32-36); Mean Corpuscular Volume 91.4 FL (87-102); Mean Platelet Volume 12.1 FL (9.6-12.0); Monocytes % 2.4 % (1.7-12.7); Neutrophils % 93.1 % (38.7-73.9); Platelet Count 175 T/CUMM (130-400); Red Blood Count 4.08 MC/CUMM (3.8-5.5); Red Cell Distribution Width 16.6 % (9.3-17.3)
[2021-02-19 06:17] LABS: Albumin 2.9 G/DL (3.4-5.0); Calcium 8.6 MG/DL (8.5-10.1); Osmolality,Calculated 283.4 MOS/KG (273-304); Potassium 4.6 MMOL/L (3.5-5.1)
[2021-02-19 06:19] LABS: Band Neutrophils 26 % (0-10); Lymphocytes 5 % (20-55); Segmented Neutrophils 66 % (50-85); Total Cells Counted 100
[2021-02-19 06:20] LABS: Anisocytosis 1+; Macrocytosis Slight; Platelet Estimate Normal; Spherocytes Few
[2021-02-19] MEDS: methylPREDNISolone SOD SUC 40 MG/1 ML VIAL IV SCH ×2 (08:51→20:13)
[2021-02-19] MEDS: MONTELUKAST 10 MG TABLET PO SCH (10:16)
[2021-02-19] MEDS ORDERED: SERTRALINE 100 MG TABLET PO SCH (11:47)
[2021-02-19] MEDS: DORNASE ALFA 2.5 MG/2.5 ML VIAL RESP TX SCH ×2 (11:58→19:31)
[2021-02-19] MEDS ORDERED: NITROGLYCERIN SL 0.4 MG TABLET SL PRN (13:41)
[2021-02-19] MEDS: BENZONATATE 100 MG CAPSULE PO SCH ×2 (14:44→20:13)
[2021-02-19] MEDS: ALBUTEROL 2 MG TABLET PO SCH ×2 (14:44→20:17)
[2021-02-19] MEDS: LEVOFLOXACIN INJ 750 MG/150 ML PREMIX IV SCH (15:32)
[2021-02-19] MEDS: BENZTROPINE 1 MG TABLET PO SCH (20:11)
[2021-02-19] MEDS: FAMOTIDINE 20 MG/2 ML VIAL IV SCH (20:12)
[2021-02-19] MEDS: ENOXAPARIN 40 MG/0.4 ML SYRINGE SUBCUT SCH (20:12)
[2021-02-19] MEDS: SERTRALINE 100 MG TABLET PO SCH (20:17)
[2021-02-20 06:43] LABS: Basophils % 0.1 % (0.0-0.8); Hematocrit 33.1 VOL% (35.7-47.0); Hemoglobin 10.2 GM/DL (12.0-16.0); Immature Granulocytes % 0.7 %; Lymphocytes # 0.4 10*3/uL (1.4-4.0); Lymphocytes % 2.6 % (21.3-54.2); Mean Corpuscular HGB Conc 30.8 GM/DL (32-36); Mean Corpuscular Volume 89.2 FL (87-102); Mean Platelet Volume 12.5 FL (9.6-12.0); Monocytes % 3.8 % (1.7-12.7); Neutrophils % 92.8 % (38.7-73.9); Platelet Count 168 T/CUMM (130-400); Red Blood Count 3.71 MC/CUMM (3.8-5.5); Red Cell Distribution Width 16.2 % (9.3-17.3); White Blood Count 15.2 T/CUMM (4-12)
[2021-02-20] MEDS: DORNASE ALFA 2.5 MG/2.5 ML VIAL RESP TX SCH ×2 (07:00→19:33)
[2021-02-20 07:04] LABS: Anisocytosis 2+; Band Neutrophils 14 % (0-10); Lymphocytes 4 % (20-55); Macrocytosis Slight; Nucleated Red Blood Cells 1 (0-5); Platelet Estimate Normal; Polychromasia Slight; Segmented Neutrophils 78 % (50-85); Total Cells Counted 100
[2021-02-20 07:19] LABS: Calcium 8.8 MG/DL (8.5-10.1); Osmolality,Calculated 288.3 MOS/KG (273-304); Potassium 4.3 MMOL/L (3.5-5.1)
[2021-02-20] MEDS: ALBUTEROL 2 MG TABLET PO SCH ×3 (08:05→20:24)
[2021-02-20] MEDS: BENZTROPINE 1 MG TABLET PO SCH ×2 (08:05→20:24)
[2021-02-20] MEDS: BENZONATATE 100 MG CAPSULE PO SCH ×3 (08:05→20:24)
[2021-02-20] MEDS: MONTELUKAST 10 MG TABLET PO SCH (08:06)
[2021-02-20] MEDS: CLOPIDOGREL 75 MG TABLET PO SCH (08:06)
[2021-02-20] MEDS: methylPREDNISolone SOD SUC 40 MG/1 ML VIAL IV SCH ×2 (08:06→20:20)
[2021-02-20] MEDS: LEVOTHYROXINE 125 MCG TABLET PO SCH (08:06)
[2021-02-20] MEDS ORDERED: PHENYLEPHRINE 0.25% SUPP RECTAL PRN (09:18)
[2021-02-20] MEDS: LEVOFLOXACIN INJ 750 MG/150 ML PREMIX IV SCH (15:10)
[2021-02-20 15:36] LABS: % Iron Saturation 12.6 % (18-50); Ferritin 309.9 ng/ml (8-252)
[2021-02-20 15:37] LABS: Folate 12.08 NG/ML (5.38-24.0)
[2021-02-20] MEDS: ENOXAPARIN 40 MG/0.4 ML SYRINGE SUBCUT SCH (20:23)
[2021-02-20] MEDS: FAMOTIDINE 20 MG/2 ML VIAL IV SCH (20:23)
[2021-02-20] MEDS: SERTRALINE 100 MG TABLET PO SCH (20:24)
[2021-02-21 05:44] LABS: Basophils % 0.1 % (0.0-0.8); Hematocrit 34.7 VOL% (35.7-47.0); Hemoglobin 10.4 GM/DL (12.0-16.0); Immature Granulocytes % 0.8 %; Immature Granulocytes Absolute 0.09 #; Lymphocytes # 0.5 10*3/uL (1.4-4.0); Lymphocytes % 4.4 % (21.3-54.2); Mean Corpuscular Volume 91.6 FL (87-102); Mean Platelet Volume 12.8 FL (9.6-12.0); Monocytes % 3.8 % (1.7-12.7); Neutrophils % 90.9 % (38.7-73.9); Platelet Count 196 T/CUMM (130-400); Red Blood Count 3.79 MC/CUMM (3.8-5.5); Red Cell Distribution Width 16.5 % (9.3-17.3); White Blood Count 11.8 T/CUMM (4-12)
[2021-02-21 05:51] LABS: INR 1.1; PT Patient Result 12.2 SECS (10.5-12.0); Partial Thromboplastin Time 22.8 SECS (23.9-33.8)
[2021-02-21 06:11] LABS: Lymphocytes 8 % (20-55); Platelet Estimate Normal; Segmented Neutrophils 90 % (50-85); Total Cells Counted 100
[2021-02-21 06:46] LABS: Calcium 9.1 MG/DL (8.5-10.1); Osmolality,Calculated 286.4 MOS/KG (273-304); Potassium 4.4 MMOL/L (3.5-5.1)
[2021-02-21] MEDS ORDERED: BENZONATATE 100 MG CAPSULE PO ONE (07:30)
[2021-02-21] MEDS ORDERED: diphenhydrAMINE 50 MG/1 ML VIAL IM ONE (07:30)
[2021-02-21] MEDS: DORNASE ALFA 2.5 MG/2.5 ML VIAL RESP TX SCH ×2 (07:58→20:05)
[2021-02-21] MEDS: methylPREDNISolone SOD SUC 40 MG/1 ML VIAL IV SCH ×2 (08:18→21:31)
[2021-02-21] MEDS: LIDOCAINE 2% 20 ML VIAL RESP TX ONE ×2 (09:33→10:04)
[2021-02-21] MEDS: LIDOCAINE 1% 20 ML VIAL MISC INJ ONE ×2 (09:33→10:03)
[2021-02-21] MEDS: LIDOCAINE 2% VISCOUS 100 ML BOTTLE SWISH/SPIT ONE ×2 (09:34→10:04)
[2021-02-21] MEDS: MONTELUKAST 10 MG TABLET PO SCH (11:32)
[2021-02-21] MEDS: ALBUTEROL 2 MG TABLET PO SCH (11:32)
[2021-02-21] MEDS: LEVOTHYROXINE 125 MCG TABLET PO SCH (11:32)
[2021-02-21] MEDS: BENZONATATE 100 MG CAPSULE PO SCH ×3 (11:32→21:30)
[2021-02-21] MEDS: BENZTROPINE 1 MG TABLET PO SCH ×2 (11:33→21:30)
[2021-02-21] MEDS: CLOPIDOGREL 75 MG TABLET PO SCH (11:33)
[2021-02-21] MEDS: LEVOFLOXACIN INJ 750 MG/150 ML PREMIX IV SCH (17:16)
[2021-02-21] MEDS: SERTRALINE 100 MG TABLET PO SCH (21:30)
[2021-02-21] MEDS: ENOXAPARIN 40 MG/0.4 ML SYRINGE SUBCUT SCH (21:31)
[2021-02-21] MEDS: FAMOTIDINE 20 MG/2 ML VIAL IV SCH (21:31)
[2021-02-22 05:42] LABS: Basophils % 0.1 % (0.0-0.8); Hematocrit 34.3 VOL% (35.7-47.0); Hemoglobin 10.9 GM/DL (12.0-16.0); Lymphocytes # 0.5 10*3/uL (1.4-4.0); Lymphocytes % 5.4 % (21.3-54.2); Mean Corpuscular HGB Conc 31.8 GM/DL (32-36); Mean Corpuscular Volume 87.5 FL (87-102); Mean Platelet Volume 12.5 FL (9.6-12.0); Monocytes % 4.8 % (1.7-12.7); Neutrophils % 88.7 % (38.7-73.9); Platelet Count 208 T/CUMM (130-400); Red Blood Count 3.92 MC/CUMM (3.8-5.5); Red Cell Distribution Width 16.5 % (9.3-17.3); White Blood Count 9.8 T/CUMM (4-12)
[2021-02-22 06:08] LABS: Calcium 8.9 MG/DL (8.5-10.1); Osmolality,Calculated 283.5 MOS/KG (273-304)
[2021-02-22] MEDS: DORNASE ALFA 2.5 MG/2.5 ML VIAL RESP TX SCH ×3 (07:13→20:32)
[2021-02-22] MEDS ORDERED: ERGOCALCIFEROL 50,000 UNIT CAPSULE PO SCH (09:00)
[2021-02-22] MEDS: BENZONATATE 100 MG CAPSULE PO SCH ×3 (09:07→20:16)
[2021-02-22] MEDS: LEVOTHYROXINE 125 MCG TABLET PO SCH (09:07)
[2021-02-22] MEDS: BENZTROPINE 1 MG TABLET PO SCH ×2 (09:07→20:15)
[2021-02-22] MEDS: MONTELUKAST 10 MG TABLET PO SCH (09:07)
[2021-02-22] MEDS: CLOPIDOGREL 75 MG TABLET PO SCH (09:07)
[2021-02-22] MEDS: ALBUTEROL 2 MG TABLET PO SCH ×4 (09:08→20:16)
[2021-02-22] MEDS: methylPREDNISolone SOD SUC 40 MG/1 ML VIAL IV SCH ×2 (09:08→13:10)
[2021-02-22] MEDS: LEVOFLOXACIN INJ 750 MG/150 ML PREMIX IV SCH (16:50)
[2021-02-22] MEDS: FAMOTIDINE 20 MG/2 ML VIAL IV SCH (20:08)
[2021-02-22] MEDS: ENOXAPARIN 40 MG/0.4 ML SYRINGE SUBCUT SCH (20:12)
[2021-02-22] MEDS: SERTRALINE 100 MG TABLET PO SCH (20:14)
[2021-02-23] MEDS: methylPREDNISolone SOD SUC 40 MG/1 ML VIAL IV SCH ×2 (00:17→13:56)
[2021-02-23] MEDS: DORNASE ALFA 2.5 MG/2.5 ML VIAL RESP TX SCH ×2 (07:42→19:24)
[2021-02-23] MEDS: LEVOTHYROXINE 125 MCG TABLET PO SCH (08:50)
[2021-02-23] MEDS: CLOPIDOGREL 75 MG TABLET PO SCH (08:51)
[2021-02-23] MEDS: MONTELUKAST 10 MG TABLET PO SCH (08:51)
[2021-02-23] MEDS: BENZTROPINE 1 MG TABLET PO SCH ×2 (08:51→21:17)
[2021-02-23] MEDS: BENZONATATE 100 MG CAPSULE PO SCH ×3 (08:51→21:21)
[2021-02-23] MEDS: ALBUTEROL 2 MG TABLET PO SCH ×3 (08:57→21:26)
[2021-02-23] MEDS: ONDANSETRON 4 MG/2 ML VIAL IV PRN (09:23)
[2021-02-23] MEDS: LEVOFLOXACIN INJ 500 MG/100 ML PREMIX IV SCH (16:02)
[2021-02-23] MEDS: ENOXAPARIN 40 MG/0.4 ML SYRINGE SUBCUT SCH (21:17)
[2021-02-23] MEDS: FAMOTIDINE 20 MG/2 ML VIAL IV SCH (21:18)
[2021-02-23] MEDS: SERTRALINE 100 MG TABLET PO SCH (21:22)
[2021-02-24] MEDS: methylPREDNISolone SOD SUC 40 MG/1 ML VIAL IV SCH ×2 (01:18→20:47)
[2021-02-24] MEDS: DORNASE ALFA 2.5 MG/2.5 ML VIAL RESP TX SCH ×2 (07:40→19:30)
[2021-02-24] MEDS: LEVOTHYROXINE 125 MCG TABLET PO SCH (10:27)
[2021-02-24] MEDS: CLOPIDOGREL 75 MG TABLET PO SCH (10:27)
[2021-02-24] MEDS: BENZTROPINE 1 MG TABLET PO SCH ×2 (10:27→20:45)
[2021-02-24] MEDS: BENZONATATE 100 MG CAPSULE PO SCH ×3 (10:27→20:46)
[2021-02-24] MEDS: MONTELUKAST 10 MG TABLET PO SCH (10:27)
[2021-02-24] MEDS: SULFAMETHOX/TRIMETHOPRIM 800-160 MG TABLET PO SCH ×2 (12:15→20:44)
[2021-02-24] MEDS: ALBUTEROL 2 MG TABLET PO SCH ×3 (12:15→20:46)
[2021-02-24] MEDS: ONDANSETRON 4 MG/2 ML VIAL IV PRN (15:16)
[2021-02-24] MEDS: SERTRALINE 100 MG TABLET PO SCH (20:43)
[2021-02-24] MEDS: ENOXAPARIN 40 MG/0.4 ML SYRINGE SUBCUT SCH (20:43)
[2021-02-24] MEDS: FAMOTIDINE 20 MG/2 ML VIAL IV SCH (20:47)
[2021-02-24] MEDS: LEVOFLOXACIN INJ 500 MG/100 ML PREMIX IV SCH (20:48)
[2021-02-25 05:01] LABS: Basophils # 0.1 10*3/uL (0.0-0.2); Basophils % 0.7 % (0.0-0.8); Eosinophils % 0.2 % (0.00-10.9); Hematocrit 35.5 VOL% (35.7-47.0); Hemoglobin 11.3 GM/DL (12.0-16.0); Immature Granulocytes % 6.9 %; Immature Granulocytes Absolute 0.87 #; Lymphocytes # 0.6 10*3/uL (1.4-4.0); Lymphocytes % 5.1 % (21.3-54.2); Mean Corpuscular HGB Conc 31.8 GM/DL (32-36); Mean Corpuscular Volume 87.7 FL (87-102); Mean Platelet Volume 11.7 FL (9.6-12.0); Monocytes % 4.7 % (1.7-12.7); Neutrophils % 82.4 % (38.7-73.9); Platelet Count 265 T/CUMM (130-400); Red Blood Count 4.05 MC/CUMM (3.8-5.5); Red Cell Distribution Width 16.9 % (9.3-17.3); White Blood Count 12.5 T/CUMM (4-12)
[2021-02-25 05:26] LABS: Calcium 8.3 MG/DL (8.5-10.1); Osmolality,Calculated 281.4 MOS/KG (273-304)
[2021-02-25 05:33] LABS: Lymphocytes 6 % (20-55); Platelet Estimate Normal; Segmented Neutrophils 89 % (50-85); Total Cells Counted 100
[2021-02-25] MEDS: DORNASE ALFA 2.5 MG/2.5 ML VIAL RESP TX SCH (07:47)
[2021-02-25] MEDS: BENZONATATE 100 MG CAPSULE PO SCH ×2 (08:46→15:25)
[2021-02-25] MEDS: BENZTROPINE 1 MG TABLET PO SCH (08:46)
[2021-02-25] MEDS: LEVOTHYROXINE 125 MCG TABLET PO SCH (08:46)
[2021-02-25] MEDS: CLOPIDOGREL 75 MG TABLET PO SCH (08:46)
[2021-02-25] MEDS: ALBUTEROL 2 MG TABLET PO SCH ×2 (08:46→15:25)
[2021-02-25] MEDS: methylPREDNISolone SOD SUC 40 MG/1 ML VIAL IV SCH (08:47)
[2021-02-25] MEDS: SULFAMETHOX/TRIMETHOPRIM 800-160 MG TABLET PO SCH (08:47)
[2021-02-25] MEDS: MONTELUKAST 10 MG TABLET PO SCH (08:47)
[2021-02-25 15:58] VITALS: BP 128/64
== END 2021-02-25 16:26 | disposition home health service (06) | DRG 177 ==
LOC: EDUNIT# → EDBD → N.ED 11:00 → N.EDINP 14:07 → SUATTDRO 14:07 → N.ICU 19:00 → N.5E 02-21 13:28
PROVIDERS: ADMIT Internal Medicine; ATTEND Internal Medicine

== ENCOUNTER 2021-03-21 07:02 | Inpatient (IN) ==
[2021-03-21] MEDS ORDERED: methylPREDNISolone SOD SUC 125 MG/2 ML VIAL IV STA (07:32)
[2021-03-21] MEDS ORDERED: ALBUTEROL/IPRATROPIUM 3 ML NEB RESP TX STA (07:32)
[2021-03-21 08:31] LABS: Partial Thromboplastin Time 22.5 SECS (23.9-33.8)
[2021-03-21 08:38] LABS: Alanine Aminotransferase 15 U/L (13-56); Albumin 3.2 G/DL (3.4-5.0); Alkaline Phosphatase 116 U/L (45-117); Aspartate Amino Transferase 20 U/L (0-37); Bilirubin,Total < 0.39 MG/DL (0.20-1.00); Blood Urea Nitrogen 9 MG/DL (7-18); Calcium 8.5 MG/DL (8.5-10.1); Carbon Dioxide 30 MMOL/L (21-32); Estimated Glom Filtration Rate 95 ML/MIN; Glucose 89 MG/DL (74-106); Potassium 4.6 MMOL/L (3.5-5.1); Sodium 143 MMOL/L (136-145); Total Protein 6.8 G/DL (6.4-8.2)
[2021-03-21 08:40] LABS: Basophils % 0.5 % (0.0-0.8); Eosinophils # 0.3 10*3/uL (0.0-0.87); Eosinophils % 3.9 % (0.00-10.9); Hematocrit 38.1 VOL% (35.7-47.0); Hemoglobin 11.2 GM/DL (12.0-16.0); Immature Granulocytes % 0.7 %; Immature Granulocytes Absolute 0.06 #; Lymphocytes % 24.4 % (21.3-54.2); Mean Corpuscular HGB Conc 29.4 GM/DL (32-36); Mean Corpuscular Volume 95.7 FL (87-102); Mean Platelet Volume 11.7 FL (9.6-12.0); Monocytes % 8.2 % (1.7-12.7); Neutrophils % 62.3 % (38.7-73.9); Platelet Count 292 T/CUMM (130-400); Red Blood Count 3.98 MC/CUMM (3.8-5.5); Red Cell Distribution Width 19.4 % (9.3-17.3); White Blood Count 8.2 T/CUMM (4-12)
[2021-03-21 09:57] LABS: ABG Base Excess 0.8 MMOL/L (-2.5-2.5); ABG HCO3 28.3 MMOL/L (20-26); ABG Oxygen Saturation 96.1 % (95-100); ABG PCO2 59.2 MM HG (35-48); ABG PH 7.297 (7.35-7.45); ABG PO2 92.4 MM HG (80-95); ABG TCO2 30.1 MMOL/L (23-27)
[2021-03-21] MEDS ORDERED: ALBUTEROL 2.5 MG/3 ML NEB RESP TX STA (11:46)
[2021-03-21 11:59] LABS: Bacteria,Urine Occasional /HPF (Few); Bilirubin,Urine Negative (Negative); Blood, Urine Negative (Negative); Glucose,Urine (UA) Negative (Negative); Hyaline Casts,Urine 3 /LPF (0-3); Ketones,Urine Negative (Negative); Mucus,Urine Occasional /LPF (Occasional); Nitrite,Urine Negative (Negative); Protein,Urine Negative; RBC,Urine 1 /HPF (0-4); Squamous Epithelial Cell,Urine Occasional /HPF (0-10); Urine Appearance CLEAR (Clear); Urine Color Yellow (Yellow); Urine Specific Gravity 1.018 (1.001-1.035); Urine Urobilinogen < 2.0 EU/DL (0.2-1.0)
[2021-03-21] MEDS ORDERED: GLUCAGON 1 MG VIAL IM PRN (15:22)
[2021-03-21] MEDS ORDERED: ONDANSETRON 4 MG/2 ML VIAL IV PRN (15:22)
[2021-03-21] MEDS ORDERED: DOCUSATE SODIUM 100 MG CAPSULE PO PRN (15:22)
[2021-03-21] MEDS ORDERED: DEXTROSE 50% 25 GM/50 ML VIAL IV PRN (15:22)
[2021-03-21] MEDS ORDERED: CALCIUM CARBONATE CHEW 500 MG TABLET PO PRN (15:22)
[2021-03-21] MEDS: DEXAMETHASONE 10 MG/1 ML VIAL IV SCH ×2 (18:03→23:00)
[2021-03-21] MEDS: cefTRIAXone 1,000 MG in SODIUM CHLORIDE 0.9% 100 ML IV SCH (18:38)
[2021-03-21] MEDS: ALBUTEROL/IPRATROPIUM 3 ML NEB RESP TX SCH (19:48)
[2021-03-21] MEDS: AZITHROMYCIN INJ 500 MG in SODIUM CHLORIDE 0.9% 250 ML IV SCH (20:30)
[2021-03-22] MEDS: ALBUTEROL/IPRATROPIUM 3 ML NEB RESP TX SCH ×4 (00:15→18:50)
[2021-03-22] MEDS: ACETAMINOPHEN 325 MG TABLET PO PRN ×2 (03:33→10:06)
[2021-03-22] MEDS: DEXAMETHASONE 10 MG/1 ML VIAL IV SCH ×4 (03:36→21:50)
[2021-03-22] MEDS: guaiFENesin/DM ER 600-30 MG TABLET PO PRN ×3 (05:57→20:34)
[2021-03-22 06:16] LABS: Basophils % 0.2 % (0.0-0.8); Hematocrit 34.7 VOL% (35.7-47.0); Hemoglobin 10.4 GM/DL (12.0-16.0); Immature Granulocytes % 1.3 %; Immature Granulocytes Absolute 0.06 #; Lymphocytes # 0.8 10*3/uL (1.4-4.0); Lymphocytes % 16.9 % (21.3-54.2); Mean Corpuscular Volume 94.6 FL (87-102); Neutrophils % 77.6 % (38.7-73.9); Platelet Count 247 T/CUMM (130-400); Red Blood Count 3.67 MC/CUMM (3.8-5.5); Red Cell Distribution Width 18.6 % (9.3-17.3); White Blood Count 4.6 T/CUMM (4-12)
[2021-03-22 06:35] LABS: Calcium 8.3 MG/DL (8.5-10.1); Osmolality,Calculated 283.3 MOS/KG (273-304); Potassium 4.2 MMOL/L (3.5-5.1)
[2021-03-22 06:39] LABS: Risk Ratio 3.84; VLDL Cholesterol 22.4 MG/DL
[2021-03-22] MEDS: PANTOPRAZOLE 40 MG TABLET PO SCH (08:32)
[2021-03-22] MEDS: ISOSORBIDE MONONITRATE 30 MG TABLET PO SCH (10:06)
[2021-03-22] MEDS: ASPIRIN EC 81 MG TABLET PO SCH (10:06)
[2021-03-22] MEDS: ENOXAPARIN 40 MG/0.4 ML SYRINGE SUBCUT SCH (10:07)
[2021-03-22] MEDS ORDERED: MONTELUKAST 10 MG TABLET PO PRN (10:52)
[2021-03-22] MEDS: cefTRIAXone 1,000 MG in SODIUM CHLORIDE 0.9% 100 ML IV SCH (17:42)
[2021-03-22] MEDS: AZITHROMYCIN INJ 500 MG in SODIUM CHLORIDE 0.9% 250 ML IV SCH (20:32)
[2021-03-22] MEDS: BACLOFEN 10 MG TABLET PO SCH (20:33)
[2021-03-22] MEDS: SERTRALINE 100 MG TABLET PO SCH (20:33)
[2021-03-22] MEDS: PREGABALIN 100 MG CAPSULE PO SCH (20:33)
[2021-03-22] MEDS: CYCLOBENZAPRINE 10 MG TABLET PO SCH (20:34)
[2021-03-23] MEDS: ALBUTEROL/IPRATROPIUM 3 ML NEB RESP TX SCH ×4 (00:30→19:20)
[2021-03-23] MEDS: DEXAMETHASONE 10 MG/1 ML VIAL IV SCH ×4 (04:59→21:54)
[2021-03-23 05:43] LABS: Hemoglobin 10.1 GM/DL (12.0-16.0); Immature Granulocytes % 0.8 %; Immature Granulocytes Absolute 0.04 #; Lymphocytes # 0.6 10*3/uL (1.4-4.0); Lymphocytes % 11.7 % (21.3-54.2); Mean Corpuscular HGB Conc 30.6 GM/DL (32-36); Mean Corpuscular Volume 93.5 FL (87-102); Mean Platelet Volume 11.9 FL (9.6-12.0); Monocytes % 6.4 % (1.7-12.7); Neutrophils % 81.1 % (38.7-73.9); Platelet Count 258 T/CUMM (130-400); Red Blood Count 3.53 MC/CUMM (3.8-5.5); White Blood Count 5.2 T/CUMM (4-12)
[2021-03-23 06:03] LABS: Calcium 8.4 MG/DL (8.5-10.1); Osmolality,Calculated 286.1 MOS/KG (273-304); Potassium 3.9 MMOL/L (3.5-5.1)
[2021-03-23] MEDS ORDERED: LEVOTHYROXINE 125 MCG TABLET PO SCH (06:30)
[2021-03-23] MEDS: LEVOTHYROXINE 88 MCG TABLET PO SCH (06:36)
[2021-03-23] MEDS: ENOXAPARIN 40 MG/0.4 ML SYRINGE SUBCUT SCH (09:05)
[2021-03-23] MEDS: CYCLOBENZAPRINE 10 MG TABLET PO SCH ×2 (09:06→20:41)
[2021-03-23] MEDS: PREGABALIN 100 MG CAPSULE PO SCH ×2 (09:06→20:41)
[2021-03-23] MEDS: ASPIRIN EC 81 MG TABLET PO SCH (09:07)
[2021-03-23] MEDS: ISOSORBIDE MONONITRATE 30 MG TABLET PO SCH (09:07)
[2021-03-23] MEDS: PANTOPRAZOLE 40 MG TABLET PO SCH (09:08)
[2021-03-23] MEDS: cefTRIAXone 1,000 MG in SODIUM CHLORIDE 0.9% 100 ML IV SCH (17:30)
[2021-03-23] MEDS: AZITHROMYCIN INJ 500 MG in SODIUM CHLORIDE 0.9% 250 ML IV SCH (20:38)
[2021-03-23] MEDS: SERTRALINE 100 MG TABLET PO SCH (20:40)
[2021-03-23] MEDS: guaiFENesin/DM ER 600-30 MG TABLET PO PRN (20:41)
[2021-03-23] MEDS: BACLOFEN 10 MG TABLET PO SCH (20:41)
[2021-03-24 04:57] LABS: Basophils % 0.2 % (0.0-0.8); Hematocrit 33.8 VOL% (35.7-47.0); Hemoglobin 10.1 GM/DL (12.0-16.0); Immature Granulocytes % 0.8 %; Immature Granulocytes Absolute 0.04 #; Lymphocytes # 0.6 10*3/uL (1.4-4.0); Lymphocytes % 11.9 % (21.3-54.2); Mean Corpuscular HGB Conc 29.9 GM/DL (32-36); Mean Corpuscular Volume 93.9 FL (87-102); Monocytes % 7.2 % (1.7-12.7); Neutrophils % 79.9 % (38.7-73.9); Platelet Count 228 T/CUMM (130-400); Red Cell Distribution Width 18.8 % (9.3-17.3)
[2021-03-24] MEDS: DEXAMETHASONE 10 MG/1 ML VIAL IV SCH (05:08)
[2021-03-24] MEDS: LEVOTHYROXINE 88 MCG TABLET PO SCH ×2 (05:10→07:39)
[2021-03-24 05:26] LABS: Calcium 8.3 MG/DL (8.5-10.1); Osmolality,Calculated 286.1 MOS/KG (273-304); Potassium 4.4 MMOL/L (3.5-5.1)
[2021-03-24] MEDS: ALBUTEROL/IPRATROPIUM 3 ML NEB RESP TX SCH ×2 (07:05)
[2021-03-24 08:23] VITALS: BP 144/81
[2021-03-24] MEDS: ASPIRIN EC 81 MG TABLET PO SCH (09:37)
[2021-03-24] MEDS: PANTOPRAZOLE 40 MG TABLET PO SCH (09:38)
[2021-03-24] MEDS: ISOSORBIDE MONONITRATE 30 MG TABLET PO SCH (09:38)
[2021-03-24] MEDS: PREGABALIN 100 MG CAPSULE PO SCH (09:38)
[2021-03-24] MEDS: CYCLOBENZAPRINE 10 MG TABLET PO SCH (09:38)
[2021-03-24] MEDS: guaiFENesin/DM ER 600-30 MG TABLET PO PRN (09:45)
[2021-03-24] MEDS: cefTRIAXone 1,000 MG in SODIUM CHLORIDE 0.9% 100 ML IV SCH ×2 (11:00→13:38)
[2021-03-24] MEDS ORDERED: AZITHROMYCIN 250 MG TABLET PO SCH (11:00)
[2021-03-24] MEDS: ENOXAPARIN 40 MG/0.4 ML SYRINGE SUBCUT SCH (11:01)
== END 2021-03-24 13:02 | disposition home health service (06) | DRG 189 ==
LOC: EDUNIT# → EDSEX → EDBD → N.ED 07:02 → N.EDINP 14:54 → N.5E 15:41
PROVIDERS: ADMIT Internal Medicine; ATTEND Internal Medicine

== ENCOUNTER 2022-01-29 14:06 | Inpatient (IN) ==
[2022-01-29] MEDS ORDERED: SODIUM CHLORIDE 0.9% 500 ML IV STA (16:07)
[2022-01-29 17:23] LABS: Basophils # 0.1 10*3/uL (0.0-0.2); Basophils % 0.4 % (0.0-0.8); Eosinophils # 0.2 10*3/uL (0.0-0.87); Eosinophils % 1.3 % (0.00-10.9); Hemoglobin 7.1 GM/DL (12.0-16.0); Immature Granulocytes % 0.8 %; Immature Granulocytes Absolute 0.12 #; Lymphocytes % 7.1 % (21.3-54.2); Mean Corpuscular HGB Conc 28.4 GM/DL (32-36); Mean Corpuscular Volume 83.6 FL (87-102); Mean Platelet Volume 12.7 FL (9.6-12.0); Monocytes # 0.7 10*3/uL (0.11-0.8); Monocytes % 4.5 % (1.7-12.7); Neutrophils % 85.9 % (38.7-73.9); Platelet Count 199 T/CUMM (130-400); Red Blood Count 2.99 MC/CUMM (3.8-5.5); Red Cell Distribution Width 18.1 % (9.3-17.3); White Blood Count 14.5 T/CUMM (4-12)
[2022-01-29 17:35] LABS: PT Patient Result 10.9 SECS (10.5-12.0)
[2022-01-29] MEDS ORDERED: SODIUM CHLORIDE 0.9% 1,000 ML IV PRN (17:36)
[2022-01-29 17:47] LABS: Alanine Aminotransferase < 6 U/L (13-56); Alkaline Phosphatase 50 U/L (45-117); Aspartate Amino Transferase 7 U/L (0-37); Bilirubin,Total < 0.39 MG/DL (0.20-1.00); Blood Urea Nitrogen 29 MG/DL (7-18); Calcium 9.5 MG/DL (8.5-10.1); Carbon Dioxide 31 MMOL/L (21-32); Chloride 113 MMOL/L (98-107); Glucose 126 MG/DL (74-106); Osmolality,Calculated 295.7 MOS/KG (273-304); Potassium 4.8 MMOL/L (3.5-5.1); Sodium 145 MMOL/L (136-145); Total Protein 5.9 G/DL (6.4-8.2)
[2022-01-29 17:59] LABS: Hypochromia 1+; Platelet Estimate Adequate
[2022-01-29] MEDS ORDERED: ACETAMINOPHEN 325 MG TABLET PO PRN (19:04)
[2022-01-29] MEDS ORDERED: GLUCAGON 1 MG VIAL IM PRN (19:04)
[2022-01-29] MEDS ORDERED: ONDANSETRON 4 MG/2 ML VIAL IV PRN (19:04)
[2022-01-29] MEDS ORDERED: BUDESONIDE/FORMOTEROL 160-4.5 INHALER 6 GM INH PRN (19:09)
[2022-01-29] MEDS ORDERED: DEXTROSE 10% 250 ML BAG IV PRN (19:11)
[2022-01-29 20:35] LABS: Bilirubin,Urine Negative (Negative); Blood, Urine Large mg/dL (Negative); Glucose,Urine (UA) Negative (Negative); Ketones,Urine Trace mg/dL (Negative); Nitrite,Urine Negative (Negative); Protein,Urine 30 mg/dL (Negative); Urine Appearance Clear (Clear); Urine Color Yellow (Yellow); Urine Specific Gravity 1.025 (1.001-1.035); Urine Urobilinogen 0.2 eU/dL (<2.0); Urine pH 5.5 (4.5-8.0)
[2022-01-29 20:37] LABS: Bacteria,Urine Occasional /HPF (Few); Hyaline Casts,Urine 7 /LPF (0-3); Mucus,Urine Occasional /LPF (Occasional); RBC,Urine 11 /HPF (0-4); Squamous Epithelial Cell,Urine Occasional /HPF (0-10)
[2022-01-29] MEDS ORDERED: CYCLOBENZAPRINE 10 MG TABLET PO PRN (20:48)
[2022-01-29] MEDS: BENZTROPINE 0.5 MG TABLET PO SCH (22:39)
[2022-01-29] MEDS: DOCUSATE SODIUM 100 MG CAPSULE PO SCH (22:39)
[2022-01-29] MEDS: RIVASTIGMINE 3 MG CAPSULE PO SCH (22:40)
[2022-01-29] MEDS: THEOPHYLLINE ER 300 MG TABLET PO SCH (22:40)
[2022-01-29] MEDS: SERTRALINE 100 MG TABLET PO SCH (22:40)
[2022-01-29] MEDS: PANTOPRAZOLE 40 MG VIAL IV SCH (22:42)
[2022-01-29] MEDS: ALBUTEROL 2 MG TABLET PO SCH (23:08)
[2022-01-29] MEDS: SODIUM CHLORIDE 0.9% 1,000 ML IV SCH (23:09)
[2022-01-30] MEDS ORDERED: LEVOTHYROXINE 125 MCG TABLET PO SCH (06:30)
[2022-01-30] MEDS: ALBUTEROL/IPRATROPIUM 3 ML NEB RESP TX SCH ×2 (07:11→13:00)
[2022-01-30 07:19] LABS: Basophils % 0.3 % (0.0-0.8); Eosinophils # 0.1 10*3/uL (0.0-0.87); Eosinophils % 1.2 % (0.00-10.9); Hemoglobin 8.3 GM/DL (12.0-16.0); Immature Granulocytes % 0.8 %; Immature Granulocytes Absolute 0.09 #; Mean Corpuscular HGB Conc 29.6 GM/DL (32-36); Mean Corpuscular Volume 79.5 FL (87-102); Monocytes # 0.8 10*3/uL (0.11-0.8); Neutrophils % 73.7 % (38.7-73.9); Platelet Count 177 T/CUMM (130-400); Red Blood Count 3.52 MC/CUMM (3.8-5.5); Red Cell Distribution Width 19.1 % (9.3-17.3); White Blood Count 11.9 T/CUMM (4-12)
[2022-01-30 07:49] LABS: Albumin 2.8 G/DL (3.4-5.0); Bilirubin,Total 0.4 MG/DL (0.20-1.00); Calcium 8.8 MG/DL (8.5-10.1); Osmolality,Calculated 291.7 MOS/KG (273-304); Potassium 4.3 MMOL/L (3.5-5.1); Risk Ratio 2.43; Total Protein 5.5 G/DL (6.4-8.2)
[2022-01-30] MEDS ORDERED: MONTELUKAST 10 MG TABLET PO SCH (09:00)
[2022-01-30] MEDS ORDERED: CHOLECALCIFEROL 1,000 UNIT TABLET PO SCH (09:00)
[2022-01-30] MEDS ORDERED: predniSONE 10 MG TABLET PO SCH (09:00)
[2022-01-30] MEDS ORDERED: REVEFENACIN 175 MCG/3 ML INH SCH (09:00)
[2022-01-30] MEDS ORDERED: GENTAMICIN 80 MG/2 ML VIAL IM SCH (09:00)
[2022-01-30] MEDS ORDERED: ERGOCALCIFEROL 50,000 UNIT CAPSULE PO SCH (09:00)
[2022-01-30] MEDS: PANTOPRAZOLE 40 MG VIAL IV SCH ×2 (09:39→21:10)
[2022-01-30] MEDS: BENZTROPINE 0.5 MG TABLET PO SCH ×3 (10:13→21:52)
[2022-01-30] MEDS: CARBIDOPA/LEVODOPA 25-100 MG TABLET PO SCH ×3 (10:13→16:57)
[2022-01-30] MEDS: ALBUTEROL 2 MG TABLET PO SCH ×3 (10:14→21:13)
[2022-01-30] MEDS: RIVASTIGMINE 3 MG CAPSULE PO SCH ×2 (10:14→21:52)
[2022-01-30] MEDS: THEOPHYLLINE ER 300 MG TABLET PO SCH ×2 (10:14→21:53)
[2022-01-30] MEDS: DOCUSATE SODIUM 100 MG CAPSULE PO SCH ×2 (10:14→21:12)
[2022-01-30] MEDS: SODIUM CHLORIDE 0.9% 1,000 ML IV SCH ×2 (10:15→16:50)
[2022-01-30] MEDS: POLYETHYLENE GLYCOL POWDER 17 GM PACK PO SCH ×2 (15:23→21:12)
[2022-01-30 17:31] LABS: Basophils # 0.1 10*3/uL (0.0-0.2); Basophils % 0.4 % (0.0-0.8); Eosinophils % 0.3 % (0.00-10.9); Hematocrit 22.5 VOL% (35.7-47.0); Hemoglobin 6.7 GM/DL (12.0-16.0); Immature Granulocytes Absolute 0.15 #; Lymphocytes # 1.2 10*3/uL (1.4-4.0); Lymphocytes % 7.9 % (21.3-54.2); Mean Corpuscular HGB Conc 29.8 GM/DL (32-36); Mean Corpuscular Volume 79.5 FL (87-102); Mean Platelet Volume 12.1 FL (9.6-12.0); Monocytes # 0.7 10*3/uL (0.11-0.8); Monocytes % 4.4 % (1.7-12.7); Platelet Count 192 T/CUMM (130-400); Red Blood Count 2.83 MC/CUMM (3.8-5.5); Red Cell Distribution Width 19.4 % (9.3-17.3); White Blood Count 15.2 T/CUMM (4-12)
[2022-01-30 20:57] VITALS: BP 130/72
[2022-01-30] MEDS: SERTRALINE 100 MG TABLET PO SCH (21:13)
[2022-01-30] MEDS ORDERED: BENZOCAINE/BUTAMBEN/TETRACAINE SPRAY 20 GM CAN TOP ONE (21:58)
[2022-01-31] MEDS ORDERED: LEVOTHYROXINE 100 MCG TABLET PO SCH (06:30)
[2022-02-01] MEDS ORDERED: BISACODYL 5 MG TABLET PO SCH (08:00)
[2022-02-01] MEDS ORDERED: POLYETHYLENE GLYCOL POWDER 255 GM BOTTLE PO ONE (18:00)
[2022-02-01] MEDS ORDERED: MAGNESIUM CITRATE 300 ML BOTTLE PO ONE (21:00)
[2022-02-23] MEDS ORDERED: CYANOCOBALAMIN 1000 MCG/1 ML VIAL IM SCH (09:00)
== END 2022-01-30 22:16 | disposition hospice, home (50) | DRG 378 ==
LOC: N.ED 14:06 → N.EDINP 19:04 → SUATTDRO 19:04 → N.TELEN 20:12 → N.ICU 01-30 16:20
PROVIDERS: ADMIT Internal Medicine; ATTEND Internal Medicine